=== PATIENT | female | born 1990 | race Two or more races ===

== ENCOUNTER 2019-05-13 19:42 | Emergency (ER) | payer OTHER ==
[2019-05-13] MEDS ORDERED: NORMAL SALINE 1000 ML 1,000 ML IV ONE (20:04)
[2019-05-13] MEDS ORDERED: METOCLOPRAMIDE HCL INJ/PF 10 MG/2 ML SDV IV ONE (20:04)
--- NOTE | 2019-05-13 20:06 | ER Document Report ---
ED Medical Screen (RME) - General Chief Complaint: Nausea/Vomiting Stated Complaint: VOMITING Time Seen by Provider: 05/13/19 19:58 Notes: Patient is a 29-year-old female G5, P3 who presents emergency department with a chief complaint of vomiting. Patient reports has been vomiting intermittently for the past 3 to 4 weeks but more constant over the past 2 days. Patient reports she is an estimated 9 weeks . Patient reports she has had blood work to confirm this but has not had a ultrasound to confirm intrauterine yet. Patient waiting for referral at [facility]. Patient reports she does have a history of hyperemesis with previous pregnancies. Patient denies fever. Patient does report mild abdominal cramping that was more present yesterday. Patient does not have a clear vaginal discharge without odor. Denies vaginal bleeding. TRAVEL OUTSIDE OF THE [place] IN LAST 30 DAYS: No - Related Data Allergies/Adverse Reactions: No Known Allergies Allergy (Unverified 05/13/19 19:54) Home Medications: denies Past Medical History - Social History Chew tobacco use (# tins/day): No Frequency of alcohol use: None Drug Abuse: None Physical Exam - Vital signs Vitals: Temp Pulse BP Pulse Ox 98.9 F 72 133/75 H 98 05/13/19 19:46 12 19:46 05/13/19 19:46 05/13/19 19:46 - Abdominal Inspection: Normal Distension: No distension Bowel sounds: Normal Tenderness: Nontender Organomegaly: No organomegaly Course - Re-evaluation Re-evalutation: 05/13/19 20:05 I have greeted and performed a rapid initial assessment of this patient. A comprehensive ED assessment and evaluation of the patient, analysis of test results and completion of the medical decision making process will be conducted by additional ED providers. - Vital Signs Vital signs: Temp Pulse Resp BP Pulse Ox 98.9 F 72 20 133/75 H 98 05/13/19 19:54 05/13/19 19:54 05/13/19 19:54 05/13/19 19:54 05/13/19 19:54
[2019-05-13 20:39] LABS: ABSOLUTE EOSINOPHILS # (AUTO) 0.2 10^3/uL (0.0-0.6); ABSOLUTE MONOCYTES (AUTO) 0.5 10^3/uL (0.1-1.4); ABSOLUTE NEUT (AUTO) 6.6 10^3/uL (1.7-8.2); BASOPHILS % (AUTO) 0.4 % (0-2); EOSINOPHILS % (AUTO) 1.8 % (0-6); HEMATOCRIT 36.4 % (36.0-47.0); HEMOGLOBIN 12.5 g/dL (12.0-15.5); LYMPHOCYTES % (AUTO) 21.5 % (13-45); MEAN CORPUSCULAR HEMOGLOBIN 27.6 pg (27.0-33.4); MEAN CORPUSCULAR HGB CONC 34.3 g/dL (32.0-36.0); MEAN CORPUSCULAR VOLUME 80 fl (80-97); MONOCYTES % (AUTO) 5.4 % (3-13); PLATELET COUNT 269 10^3/uL (150-450); RED BLOOD COUNT 4.53 10^6/uL (3.72-5.28); RED CELL DISTRIBUTION WIDTH 13.5 % (11.5-14.0); SEGMENTED NEUTROPHILS % (AUTO) 70.9 % (42-78); TOTAL CELLS COUNTED % (AUTO) 100 %; WHITE BLOOD COUNT 9.3 10^3/uL (4.0-10.5)
[2019-05-13 20:57] LABS: ALBUMIN 4.7 g/dL (3.5-5.0); ALKALINE PHOSPHATASE 74 U/L (38-126); ANION GAP 13 (5-19); ASPARTATE AMINO TRANSFERASE 27 U/L (14-36); BILIRUBIN,DIRECT 0.1 mg/dL (0.0-0.4); BILIRUBIN,TOTAL 0.6 mg/dL (0.2-1.3); BLOOD UREA NITROGEN 6 mg/dL (7-20); CALCIUM 9.9 mg/dL (8.4-10.2); CARBON DIOXIDE 24 mmol/L (22-30); CHLORIDE 102 mmol/L (98-107); GLUCOSE 94 mg/dL (75-110); POTASSIUM 3.4 mmol/L (3.6-5.0); TOTAL PROTEIN 7.9 g/dL (6.3-8.2)
--- NOTE | 2019-05-13 21:37 | ER Document Report ---
ED General - General Chief Complaint: Nausea/Vomiting Stated Complaint: VOMITING Time Seen by Provider: 05/13/19 19:58 Primary Care Provider: EVER CHONG [Primary Care Provider] - Follow up as needed TRAVEL OUTSIDE OF THE [place] IN LAST 30 DAYS: No - HPI Notes: Patient is a 29-year-old female G5, P3 with one previous miscarriage approximately 9 weeks by gestation who presents complaining of nausea vomiting that is increased over the past few days. Patient states that she has been having nausea vomiting for the past couple weeks otherwise. She has been able to eat and drink, but does have decreased p.o. intake. She is urinating normally and having normal bowel movements. No other vaginal bleeding, odor, or discharge. Denies drug allergies. Surgical history significant for to her abdomen. Denies any headache, fever, neck pain, URI, sore throat, chest pain, palpitations, syncope, cough, shortness of breath, wheeze, dyspnea, abdominal pain, diarrhea, urinary retention, dysuria, hematuria, back pain, or rash. - Related Data Allergies/Adverse Reactions: No Known Allergies Allergy (Unverified 05/13/19 19:54) Home Medications: denies Past Medical History - Social History Smoking Status: Never Smoker Chew tobacco use (# tins/day): No Frequency of alcohol use: None Drug Abuse: None Family History: Reviewed & Not Pertinent Patient has suicidal ideation: No Patient has homicidal ideation: No Review of Systems - Review of Systems -: Yes All other systems reviewed and negative Physical Exam - Vital signs Vitals: Temp Pulse BP Pulse Ox 98.9 F 72 133/75 H 98 05/13/19 19:46 05/13/19 19:46 05/13/19 19:46 05/13/19 19:46 - Notes Notes: PHYSICAL EXAMINATION: GENERAL: Well-appearing, well-nourished and in no acute distress. HEAD: Atraumatic, normocephalic. EYES: Pupils equal round and reactive to light, extraocular movements intact, sclera anicteric, conjunctiva are normal. ENT: Nares patent and without discharge. oropharynx clear without exudates. No tonsilar hypertrophy or erythema. Moist mucous membranes. NECK: Normal range of motion, supple without lymphadenopathy LUNGS: Breath sounds clear to auscultation bilaterally and equal. No wheezes rales or rhonchi. HEART: Regular rate and rhythm without murmurs, rubs, gallops. ABDOMEN: Soft, nontender, nondistended abdomen. No guarding, no rebound. Normal bowel sounds present. No CVA tenderness bilaterally. Musculoskeletal: FROM to passive/active. Strength 5+/5. Extremities: No cyanosis, clubbing, or edema b/l. Peripheral pulses 2+. Capillary refill less than 3 seconds. NEUROLOGICAL: Normal speech, normal gait. PSYCH: Normal mood, normal affect. SKIN: Warm, Dry, normal turgor, no rashes or lesions noted. Course - Re-evaluation Re-evalutation: 05/13/19 Patient is an afebrile, well-hydrated, 29-year-old female who presents to the ED with n/v in early . Vitals are acceptable without any significant tachycardia, tachypnea, or hypoxia. PE is otherwise unremarkable. CBC, CMP, lipase unremarkable for acute pathology. HCG appropriate. TVUS shows living IUP 9wks. UA acceptable. Patient is nontoxic-appearing is tolerating p.o. without any difficulties. No other labs or imaging warranted at this time based on H&P. Low suspicion/risk for acute appendicitis, bowel obstruction, acute cholecystitis, acute cholangitis, perforated diverticulitis, incarcerated hernia, pancreatitis, perforated ulcer, peritonitis, sepsis, pelvic inflammatory disease, ectopic , tubo-ovarian abscess, ovarian torsion, or other systemic emergent condition at this time. Patient is aware that her condition can change from initial presentation and she needs to monitor symptoms closely and seek medical attention if any acute changes. Consider repeat US in 6 weeks per recommendations. Conservative measures otherwise for symptoms. Recheck with your PCM/OBGYN in 3-5 days. Return to the ED with any worsening/concerning symptoms otherwise as reviewed in discharge. Patient is in agreement. - Vital Signs Vital signs: Temp Pulse Resp BP Pulse Ox 98.9 F 72 20 133/75 H 98 05/13/19 19:54 05/13/19 19:54 05/13/19 19:54 05/13/19 19:54 05/13/19 19:54 - Laboratory Result Diagrams: 05/13/19 20:19 05/13/19 20:19 Laboratory results interpreted by me: 05/13/19 05/13/19 20:19 21:46 Potassium 3.4 L BUN 6 L Beta HCG, Quant [id number] H Urine Protein 100 H Urine Ketones 20 H Urine Bilirubin SMALL H Urine Urobilinogen 4.0 H Discharge - Discharge Clinical Impression: Nausea and vomiting during Condition: Stable Disposition: HOME, SELF-CARE Additional Instructions: Maintain adequate fluid and food intake Grady diet (B.R.A.T.) Bananas, rice, apples, toast, etc Reglan as needed tylenol if needed Monitor for any worsening symptoms Make sure you are staying hydrated enough to urinate and have normal BM's Recheck with your PCM in 3-5 days Schedule follow-up with EXTRACORPOREAL TECHNICIAN and consider reimaging of ultrasound for the cyst that we discussed in another 6 weeks Return to the ED with any worsening symptoms and/or development of fever, headache, chest pain, palpitations, syncope, shortness of breath, trouble breathing, abdominal pain, n/v/d, blood in stool/urine, weakness, or other worsening symptoms that are concerning to you. Prescriptions: Metoclopramide HCl [Reglan] 10 mg PO BID PRN #10 tablet PRN Reason: Forms: Elevated Blood Pressure [facility]errals: [facility] [Primary [facility]] - Follow up as needed [facility] [Provider Group] - Follow up as needed
--- NOTE | 2019-05-13 21:39 | RADIOLOGY REPORT (SQ) ---
EXAM DESCRIPTION: US TRANSVAGINAL COMPLETED DATE/TME: 05/13/2019 20:03 CLINICAL HISTORY: 29 years, Female, abdominal cramping, vomiting COMPARISON: None. TECHNIQUE: Axial 2-D grayscale images of the pelvis were acquired. Doppler was utilized. LIMITATIONS: None. FINDINGS: Uterus measures 9.2 x 7.4 x 7.9 cm in size. A single intrauterine is evident with measurements as follows: Cervix is closed, measuring 2.0 cm in length. [place]-rump length is 2.34 cm for an estimated gestational age of 9 weeks and 0 days (estimated date of delivery 12/16/2019) Yolk sac is present, measuring 0.69 cm in diameter A small focus of hypoechogenicity is noted about the periphery of the gestational sac measuring 2.6 x 1.0 x 1.6 cm in size. Right ovary measures 3.2 x 1.2 x 1.3 cm in size. It demonstrates normal low resistance arterial waveforms/venous flow. In addition, it contains a 1.2 x 0.8 x 1.0 cm hypoechoic lesion which is indeterminate given the presence of a suspected thin internal septation. Left ovary measures 3.5 x 1.9 x 2.8 cm in size. It also demonstrates normal low resistance arterial waveforms/venous flow. In addition, it contains a hypoechoic lesion measuring 1.8 x 1.4 x 1.4 cm in size, demonstrating mild peripheral Doppler flow, most likely corresponding to a corpus luteal cyst. No significant free fluid is identified within the pelvis. IMPRESSION: Single live intrauterine , as above described. Small subchorionic hematoma, specifically measuring 2.6 x 1.0 x 1.6 cm in size. Corpus luteal cyst within the left ovary. Additional hypoechoic lesion within the right ovary is indeterminate. Suggest follow-up pelvic ultrasound in 6-12 weeks to document resolution of this finding. copyright 2010 [employer]- All Rights Reserved
[2019-05-13 22:11] LABS: APPEARANCE,URINE SLIGHTLY-CLOUDY; BILIRUBIN,URINE SMALL (NEGATIVE); GLUCOSE, URINE NEGATIVE (NEGATIVE); KETONES,URINE 20 mg/dL (NEGATIVE); LEUKOCYTE ESTERASE,URINE NEGATIVE (NEGATIVE); NITRITE,URINE NEGATIVE (NEGATIVE); PROTEIN,URINE 100 mg/dL (NEGATIVE); URINE SPECIFIC GRAVITY 1.032
[2019-05-13 22:12] LABS: COLOR,URINE DARK YELLOW
[2019-05-13 23:40] VITALS: BP 132/72
== END 2019-05-13 23:39 | disposition home or self-care (01) ==
LOC: ER 19:42
DX: O21.9 Vomiting of pregnancy, unspecified (principal); Z3A.09 9 weeks gestation of pregnancy
CPT/HCPCS: 99284; 96361; 96374; 36415; 84702; 83690; 85025; 80053; 81001; 76817; 93976; J2765; J7030

== ENCOUNTER 2019-05-26 19:00 | Emergency (ER) | payer OTHER ==
[2019-05-26] MEDS ORDERED: ONDANSETRON 4 MG TAB.RAPDIS PO ONE (19:30)
[2019-05-26] MEDS ORDERED: NORMAL SALINE 1000 ML 1,000 ML IV ONE (19:31)
--- NOTE | 2019-05-26 19:34 | ER Document Report ---
ED Medical Screen (RME) - General Chief Complaint: Vomiting Stated Complaint: VOMITING Time Seen by Provider: 05/26/19 19:29 Primary Care Provider: [facility] [Primary [facility]] - Follow up as needed Mode of Arrival: Ambulatory Information source: Patient Notes: 29 -year-old female presented to ED for hyperemesis gravidarum. She states she was using Zofran pills and was able to keep her food down but today she started up over 20 times even with the Zofran. Patient is 4 para 3 she is 11 weeks . She states she did have hyperemesis gravidarum with her last but hoping she was not could have at this time. She states she was at [employer] trying to get [employer] finished when she almost passed out so the dropped her off at the ED and took the children at home. Will order blood urine IV fluids and Zofran ODT in the emergency room. I have greeted and performed a rapid initial assessment of this patient. A co mprehensive ED assessment and evaluation of the patient, analysis of test results and completion of medical decision making process will be conducted by an additional ED providers. TRAVEL OUTSIDE OF THE [place] IN LAST 30 DAYS: No - Related Data Allergies/Adverse Reactions: No Known Allergies Allergy (Unverified 05/13/19 19:54) Past Medical History Past Surgical History: Reports: Hx Section, Hx Orthopedic Surgery - spinal fusion Physical Exam - Vital signs Vitals: Temp Pulse Resp BP Pulse Ox 97.7 F 66 18 131/84 H 100 05/26/19 19:25 05/26/19 19:25 05/26/19 19:25 05/26/19 19:25 05/26/19 19:25 Course - Vital Signs Vital signs: Temp Pulse Resp BP Pulse Ox 97.7 F 66 18 131/84 H 100 05/26/19 19:25 05/26/19 19:25 05/26/19 19:25 05/26/19 19:25 05/26/19 19:25 Doctor's Discharge - Discharge Referrals: [facility] [Primary [facility]] - Follow up as needed
[2019-05-26 20:16] LABS: ABSOLUTE BASOPHILS # (AUTO) 0.1 10^3/uL (0.0-0.2); ABSOLUTE EOSINOPHILS # (AUTO) 0.2 10^3/uL (0.0-0.6); ABSOLUTE LYMPHOCYTES (AUTO) 2.4 10^3/uL (0.5-4.7); ABSOLUTE MONOCYTES (AUTO) 0.6 10^3/uL (0.1-1.4); ABSOLUTE NEUT (AUTO) 5.3 10^3/uL (1.7-8.2); BASOPHILS % (AUTO) 0.7 % (0-2); EOSINOPHILS % (AUTO) 2.3 % (0-6); HEMATOCRIT 34.8 % (36.0-47.0); LYMPHOCYTES % (AUTO) 28.4 % (13-45); MEAN CORPUSCULAR HGB CONC 34.5 g/dL (32.0-36.0); MEAN CORPUSCULAR VOLUME 81 fl (80-97); MONOCYTES % (AUTO) 6.5 % (3-13); PLATELET COUNT 264 10^3/uL (150-450); RED BLOOD COUNT 4.28 10^6/uL (3.72-5.28); RED CELL DISTRIBUTION WIDTH 13.2 % (11.5-14.0); SEGMENTED NEUTROPHILS % (AUTO) 62.1 % (42-78); TOTAL CELLS COUNTED % (AUTO) 100 %; WHITE BLOOD COUNT 8.5 10^3/uL (4.0-10.5)
[2019-05-26 20:31] LABS: ALBUMIN 4.4 g/dL (3.5-5.0); ALKALINE PHOSPHATASE 63 U/L (38-126); ANION GAP 13 (5-19); ASPARTATE AMINO TRANSFERASE 19 U/L (14-36); BILIRUBIN,DIRECT 0.1 mg/dL (0.0-0.4); BILIRUBIN,TOTAL 0.3 mg/dL (0.2-1.3); BLOOD UREA NITROGEN 7 mg/dL (7-20); CALCIUM 9.6 mg/dL (8.4-10.2); CARBON DIOXIDE 24 mmol/L (22-30); CHLORIDE 102 mmol/L (98-107); GLUCOSE 84 mg/dL (75-110); POTASSIUM 3.9 mmol/L (3.6-5.0); TOTAL PROTEIN 7.7 g/dL (6.3-8.2)
[2019-05-26 21:52] LABS: APPEARANCE,URINE CLOUDY; BILIRUBIN,URINE NEGATIVE (NEGATIVE); COLOR,URINE AMBER; GLUCOSE, URINE NEGATIVE (NEGATIVE); KETONES,URINE TRACE mg/dL (NEGATIVE); PROTEIN,URINE 100 mg/dL (NEGATIVE); URINE SPECIFIC GRAVITY 1.028; UROBILINOGEN,URINE NEGATIVE mg/dL (<2.0)
[2019-05-26] MEDS ORDERED: DIPHENHYDRAMINE HCL 50 MG/ML VIAL IV ONE (23:59)
--- NOTE | 2019-05-27 00:05 | ER Document Report ---
ED GI/ - General Chief Complaint: Vomiting Stated Complaint: VOMITING Time Seen by Provider: 05/26/19 19:29 Primary Care Provider: EVER CHONG [Primary Care Provider] - Follow up as needed Mode of Arrival: Ambulatory Notes: Patient is a 29-year-old female, G5, P3 at 11 weeks gestation by first trimester ultrasound, that comes to the emergency department for chief complaint of hyperemesis gravidarum. She states that she has had problems with this in the past especially in the first trimester but also in the second trimester. She states she was prescribed Reglan, this did nothing, she states she was given Zofran but she has to swallow a pill and before she has a chance for it to work she vomits it up. She does not have the dissolvable tablets. She was given dissolvable tablets in triage and she states she does feel better, however also she states that while shopping today she became lightheaded and she has not had much to eat or drink today at all. She denies fever, specific area abdominal pain, flank pain, dysuria, vaginal bleeding or discharge. She denies any other medications daily or any other medical history other than a previous miscarriage. TRAVEL OUTSIDE OF THE [place] IN LAST 30 DAYS: No - Related Data Allergies/Adverse Reactions: No Known Allergies Allergy (Unverified 05/13/19 19:54) Past Medical History - General Information source: Patient - Social History Smoking Status: Never Smoker Frequency of alcohol use: None Drug Abuse: None Lives with: Family Family History: Reviewed & Not Pertinent Patient has suicidal ideation: No Patient has homicidal ideation: No - Medical History Medical History: Negative Past Surgical History: Reports: Hx Section, Hx Orthopedic Surgery - spinal fusion - Immunizations Immunizations up to date: Yes Hx Diphtheria, Pertussis, Tetanus Vaccination: Yes Review of Systems - Review of Systems Constitutional: No symptoms reported EENT: No symptoms reported Cardiovascular: No symptoms reported Respiratory: No symptoms reported Gastrointestinal: See HPI Genitourinary: No symptoms reported Female Genitourinary: See HPI Musculoskeletal: No symptoms reported Skin: No symptoms reported Hematologic/Lymphatic: No symptoms reported Neurological/Psychological: No symptoms reported Physical Exam - Vital signs Vitals: Temp Resp Pulse Ox 97.7 F 18 100 05/26/19 19:00 05/26/19 19:00 05/26/19 19:00 - Notes Notes: GENERAL: Alert, interacts well. No acute distress. HEAD: Normocephalic, atraumatic. EYES: Pupils equal, round, and reactive to light. Extraocular movements intact. ENT: Oral mucosa moist, tongue midline. Oropharynx unremarkable. Airway patent. NECK: Full range of motion. Supple. Trachea midline. LUNGS: Clear to auscultation bilaterally, no wheezes, rales, or rhonchi. No respiratory distress. HEART: Regular rate and rhythm. No murmur ABDOMEN: Soft, non-tender. Non-distended. EXTREMITIES: Moves all 4 extremities spontaneously. No edema, normal radial and dorsalis pedis pulses bilaterally. No cyanosis. BACK: no cervical, thoracic, lumbar midline tenderness. No saddle anesthesia, normal distal neurovascular exam. Moves all extremities in full range of motion. NEUROLOGICAL: Alert and oriented x3. Normal speech. Cranial nerves II through XII grossly intact. PSYCH: Normal affect, normal mood. SKIN: Warm, dry, normal turgor. No rashes or lesions noted. Course - Re-evaluation Re-evalutation: Patient is well-appearing. She was given IV fluids, nausea medication, after all symptoms resolved. She did not vomit while she was here, she tolerated p.o. without any difficulty. CBC, chemistry, urinalysis unremarkable. Vital signs unremarkable. Patient states she feels much better and is ready to go home. She is asking for Zofran again because Reglan does not help, this was given by her SALES COMPENSATION ANALYST, given ODT this time. Discussed follow-up and return precautions. Patient states understanding and agreement. - Vital Signs Vital signs: Temp Pulse Resp BP Pulse Ox 97.8 F 65 16 114/85 100 05/27/19 02:10 05/27/19 02:10 05/27/19 02:10 05/27/19 02:10 05/27/19 02:10 - Laboratory Result Diagrams: 05/26/19 19:53 05/26/19 19:53 Laboratory results interpreted by me: 05/26/19 05/26/19 05/26/19 19:53 19:53 21:40 Hct 34.8 L Creatinine 0.51 L Urine Protein 100 H Urine Ketones TRACE H Leukocyte Esterase Rfl TRACE H Discharge - Discharge Clinical Impression: Vomiting affecting , Dehydration Condition: Stable Disposition: HOME, SELF-CARE Additional Instructions: Your work-up is reassuring, you have been treated for dehydration from vomiting during tonight. I recommend taking the dissolving tablets, 8 mg of Zofran if necessary, for nausea and vomiting as needed. You can also combine this with [id number] diphenhydramine which is safe in and helps with nausea. Start bland and slowly progress. Follow-up with SALES COMPENSATION ANALYST for additional management. Return if you worsen including uncontrolled vomiting, fever, severe abdominal pain, vaginal bleeding, or any other concerning symptoms. Prescriptions: Ondansetron [Zofran Odt 4 mg Tablet] 1 - 2 tab PO Q4H PRN #30 tab.rapdis PRN Reason: For Nausea/Vomiting Forms: Return to Work Referrals: [facility] [[facility]] - Follow up as needed
[2019-05-27] MEDS ORDERED: ONDANSETRON ODT 4 MG TAB (6 TAB/ER DISP) PO PRN (01:32)
[2019-05-27 02:11] VITALS: BP 114/85
== END 2019-05-27 02:10 | disposition home or self-care (01) ==
LOC: ER 19:00
DX: O21.9 Vomiting of pregnancy, unspecified (principal); O99.281 Endocrine, nutritional and metabolic diseases complicating pregnancy, first trimester; E86.0 Dehydration; O26.891 Other specified pregnancy related conditions, first trimester; R42 Dizziness and giddiness; Z3A.11 11 weeks gestation of pregnancy
CPT/HCPCS: 99284; 96361; 96374; 36415; 85025; 80053; 81001; J1200; S0119; J7030

== ENCOUNTER 2019-07-30 09:42 | Emergency (ER) | payer OTHER ==
[2019-07-30] MEDS ORDERED: NORMAL SALINE 1000 ML 1,000 ML IV ONE (09:57)
[2019-07-30] MEDS ORDERED: PROMETHAZINE HCL INJ 25 MG/1 ML VIAL IV ONE (09:57)
--- NOTE | 2019-07-30 09:59 | ER Document Report ---
ED Medical Screen (RME) - General Chief Complaint: Nausea/Vomiting Stated Complaint: VOMITING,NAUSEA Time Seen by Provider: 07/30/19 09:51 Primary Care Provider: [facility] [Primary Care Provider] - Follow up as needed Mode of Arrival: Ambulatory Information source: Patient Notes: Otherwise healthy 29-year-old female presenting to the emergency department chief complaint of nausea and vomiting. Patient reports she has 19 weeks , states that she has been diagnosed with hyperemesis. Patient reports unable to hold anything down since Wednesday which was 5 days ago. Patient denies any other symptoms at this time. I have greeted and performed a rapid initial assessment of this patient. A comprehensive ED assessment and evaluation of the patient, analysis of test results and completion of the medical decision making process will be conducted by additional ED providers. I have specifically instructed the patient or family members with the patient to immediately return to any nursing staff should anything change in the patient's condition or with their chief complaint. TRAVEL OUTSIDE OF THE [place] IN LAST 30 DAYS: No - Related Data Allergies/Adverse Reactions: No Known Allergies Allergy (Unverified 05/13/19 19:54) Past Medical History Past Surgical History: Reports: Hx Section, Hx Orthopedic Surgery - spinal fusion - Immunizations Immunizations up to date: Yes Hx Diphtheria, Pertussis, Tetanus Vaccination: Yes Physical Exam - Vital signs Vitals: Temp Pulse Resp BP Pulse Ox 98.3 F 86 16 120/75 99 07/30/19 09:56 07/30/19 09:56 07/30/19 09:56 07/30/19 09:56 07/30/19 09:56 Course - Vital Signs Vital signs: Temp Pulse Resp BP Pulse Ox 98.3 F 86 16 120/75 99 07/30/19 09:56 07/30/19 09:56 07/30/19 09:56 07/30/19 09:56 07/30/19 09:56 Doctor's Discharge - Discharge Referrals: [facility] [Primary Care Provider] - Follow up as needed
[2019-07-30 10:25] LABS: ABSOLUTE EOSINOPHILS # (AUTO) 0.3 10^3/uL (0.0-0.6); ABSOLUTE LYMPHOCYTES (AUTO) 1.7 10^3/uL (0.5-4.7); ABSOLUTE MONOCYTES (AUTO) 0.5 10^3/uL (0.1-1.4); ABSOLUTE NEUT (AUTO) 5.1 10^3/uL (1.7-8.2); BASOPHILS % (AUTO) 0.3 % (0-2); HEMATOCRIT 33.3 % (36.0-47.0); HEMOGLOBIN 12.1 g/dL (12.0-15.5); LYMPHOCYTES % (AUTO) 22.2 % (13-45); MEAN CORPUSCULAR HEMOGLOBIN 28.8 pg (27.0-33.4); MEAN CORPUSCULAR HGB CONC 36.4 g/dL (32.0-36.0); MEAN CORPUSCULAR VOLUME 79 fl (80-97); MONOCYTES % (AUTO) 6.8 % (3-13); PLATELET COUNT 274 10^3/uL (150-450); RED BLOOD COUNT 4.21 10^6/uL (3.72-5.28); SEGMENTED NEUTROPHILS % (AUTO) 66.7 % (42-78); TOTAL CELLS COUNTED % (AUTO) 100 %; WHITE BLOOD COUNT 7.6 10^3/uL (4.0-10.5)
[2019-07-30 10:32] LABS: APPEARANCE,URINE SLIGHTLY-CLOUDY; BILIRUBIN,URINE SMALL (NEGATIVE); COLOR,URINE AMBER; GLUCOSE, URINE NEGATIVE (NEGATIVE); KETONES,URINE NEGATIVE (NEGATIVE); LEUKOCYTE ESTERASE,URINE TRACE (NEGATIVE); NITRITE,URINE NEGATIVE (NEGATIVE); PROTEIN,URINE 100 mg/dL (NEGATIVE); URINE SPECIFIC GRAVITY 1.021
[2019-07-30 10:39] LABS: ALBUMIN 4.2 g/dL (3.5-5.0); ALKALINE PHOSPHATASE 105 U/L (38-126); ANION GAP 11 (5-19); ASPARTATE AMINO TRANSFERASE 25 U/L (14-36); BILIRUBIN,DIRECT 0.4 mg/dL (0.0-0.4); BILIRUBIN,TOTAL 0.7 mg/dL (0.2-1.3); BLOOD UREA NITROGEN 4 mg/dL (7-20); CALCIUM 9.5 mg/dL (8.4-10.2); CARBON DIOXIDE 28 mmol/L (22-30); CHLORIDE 98 mmol/L (98-107); GLUCOSE 82 mg/dL (75-110); TOTAL PROTEIN 7.6 g/dL (6.3-8.2)
[2019-07-30 10:45] LABS: POTASSIUM 2.8 mmol/L (3.6-5.0)
[2019-07-30] MEDS: POTASSI CL 20 MEQ/50 ML RIDER 20 MEQ/50 ML RTUPB IV SCH ×2 (11:16→12:44)
--- NOTE | 2019-07-30 11:25 | ER Document Report ---
ED GI/ - General Chief Complaint: Nausea/Vomiting Stated Complaint: VOMITING,NAUSEA Time Seen by Provider: 07/30/19 09:51 Primary Care Provider: [facility] [Primary Care Provider] - Follow up as needed Mode of Arrival: Ambulatory Notes: 29-year-old woman 2 para 1 presents with nausea vomiting unable to keep down food or fluids for the past 48 hours. She has a 19-week intrauterine and had similar problems with her previous about 3 years ago. She denies fever, dysuria, or syncope. TRAVEL OUTSIDE OF THE [place] IN LAST 30 DAYS: No - HPI heart tones (bpm): 145 - Related Data Allergies/Adverse Reactions: No Known Allergies Allergy (Unverified 05/13/19 19:54) Past Medical History - General Information source: Patient - Social History Smoking Status: Never Smoker Family History: Reviewed & Not Pertinent Patient has suicidal ideation: No Patient has homicidal ideation: No Past Surgical History: Reports: Hx Section, Hx Orthopedic Surgery - spinal fusion - Immunizations Immunizations up to date: Yes Hx Diphtheria, Pertussis, Tetanus Vaccination: Yes Review of Systems - Review of Systems Notes: Constitutional: Negative for fever. HENT: Negative for sore throat. Eyes: Negative for visual changes. Cardiovascular: Negative for chest pain. Respiratory: Negative for shortness of breath. Gastrointestinal: + Nausea and vomiting Genitourinary: Negative for dysuria. Musculoskeletal: Negative for back pain. Skin: Negative for rash. Neurological: + Weakness negative for headaches, weakness or numbness. 10 point ROS negative except as marked above and in HPI. Physical Exam - Vital signs Vitals: Temp Pulse Resp BP Pulse Ox 98.3 F 86 16 120/75 99 07/30/19 09:56 07/30/19 09:56 07/30/19 09:56 07/30/19 09:56 07/30/19 09:56 - Notes Notes: PHYSICAL EXAMINATION: Physical Exam: General: Well-nourished well-developed 29-year-old woman in mild distress secondary to nausea HEENT: NC/AT, pupils equal round and reactive to light, MM moist,nares clear, oropharynx clear, airway patent Neck: supple, no adenopathy, no masses. Good range of motion Lungs: clear, no wheezing, no rales no rhonchi CVS: Regular rate and rhythm no murmur gallop or rub Abdomen: Soft, active, nontender, no masses, no hepatosplenomegaly Ext: No edema, clubbing or cyanosis. Neuro: Alert and responsive, moving all 4 extremities on command, cranial nerves intact, no focal findings Skin: Intact no open lesions, no rash PSYCH: Normal mood, normal affect. Course - Re-evaluation Re-evalutation: 07/30/19 15:00 She was given IV fluids, IV Phenergan and potassium and now states that she is feeling much better. I discussed with her the need to follow-up with the REFRACTORY SPECIALIST since she is presently using Zofran at home along with B vitamin per prescription. The patient is in agreement with this plan and stated she is ready to be discharged. - Vital Signs Vital signs: Temp Pulse Resp BP Pulse Ox 98.3 F 86 16 120/75 99 07/30/19 09:56 07/30/19 09:56 07/30/19 09:56 07/30/19 09:56 07/30/19 09:56 - Laboratory Result Diagrams: 07/30/19 10:02 07/30/19 10:02 Laboratory results interpreted by me: 07/30/19 07/30/19 07/30/19 10:02 10:02 10:02 Hct 33.3 L MCV 79 L MCHC 36.4 H Sodium 136.7 L Potassium 2.8 L* BUN 4 L Creatinine 0.49 L Urine Protein 100 H Urine Bilirubin SMALL H Urine Urobilinogen 4.0 H Ur Leukocyte Esterase TRACE H Discharge - Discharge Clinical Impression: Vomiting , Hypokalemia, Dehydration Condition: Good Disposition: HOME, SELF-CARE Instructions: Hyperemesis Gravidarum ([facility]) Additional Instructions: You were treated for a related vomiting in the emergency department today. Please continue to push fluids and please follow-up with your REFRACTORY SPECIALIST regarding your symptoms. If your symptoms worsen or if you have other concerns you may return to the emergency department. Referrals: [facility] [[facility]] - Follow up as needed
[2019-07-30] MEDS ORDERED: RINGERS SOLUTION,LACTATED 1,000 ML IV ONE (11:26)
[2019-07-30 15:15] VITALS: BP 105/62
== END 2019-07-30 15:27 | disposition home or self-care (01) ==
LOC: ER 09:42
DX: O21.9 Vomiting of pregnancy, unspecified (principal); O26.892 Other specified pregnancy related conditions, second trimester; E87.6 Hypokalemia; E86.0 Dehydration; Z53.1 Procedure and treatment not carried out because of patient's decision for reasons of belief and group pressure; Z3A.19 19 weeks gestation of pregnancy
CPT/HCPCS: 99284; 96361; 96375; 96365; 96366; 36415; 85025; 80053; 81001; J2550; J3480; J7030; J7120

== ENCOUNTER 2019-08-10 11:50 | Emergency (ER) | payer OTHER ==
[2019-08-10] MEDS ORDERED: NORMAL SALINE 1000 ML 1,000 ML IV ONE ×3 (12:05→14:53)
--- NOTE | 2019-08-10 12:05 | ER Document Report ---
ED Medical Screen (RME) - General Chief Complaint: Vomiting Stated Complaint: VOMITING Time Seen by Provider: 08/10/19 12:02 Primary Care Provider: EVER CHONG [Primary Care Provider] - Follow up as needed Mode of Arrival: Ambulatory Information source: Patient Notes: 29-year-old female presented to ED for continued nausea and vomiting. She states she is 21 weeks . She states her heart feels like it is racing at times she feels weak and muscle cramping. She is alert oriented respirations regular nonlabored speaking in full sentences. She states she does take Zofran and another medication for nausea and vomiting. I have greeted and performed a rapid initial assessment of this patient. A comprehensive ED assessment and evaluation of the patient, analysis of test results and completion of medical decision making process will be conducted by an additional ED providers. TRAVEL OUTSIDE OF THE [place] IN LAST 30 DAYS: No - Related Data Allergies/Adverse Reactions: No Known Allergies Allergy (Verified 08/10/19 12:02) Past Medical History Past Surgical History: Reports: Hx Section, Hx Orthopedic Surgery - spinal fusion - Immunizations Immunizations up to date: Yes Hx Diphtheria, Pertussis, Tetanus Vaccination: Yes Physical Exam - Vital signs Vitals: Temp Pulse Resp BP Pulse Ox 98.1 F 77 18 139/84 H 98 08/10/19 11:55 08/10/19 11:55 08/10/19 11:55 08/10/19 11:55 08/10/19 11:55 Course - Vital Signs Vital signs: Temp Pulse Resp BP Pulse Ox 98.1 F 77 18 139/84 H 98 08/10/19 11:55 08/10/19 11:55 08/10/19 11:55 08/10/19 11:55 08/10/19 11:55 Doctor's Discharge - Discharge Referrals: [facility] [Primary Care Provider] - Follow up as needed
[2019-08-10 12:28] LABS: APPEARANCE,URINE CLOUDY; BILIRUBIN,URINE SMALL (NEGATIVE); COLOR,URINE AMBER; GLUCOSE, URINE NEGATIVE (NEGATIVE); KETONES,URINE 20 mg/dL (NEGATIVE); PROTEIN,URINE 100 mg/dL (NEGATIVE); URINE SPECIFIC GRAVITY 1.025
[2019-08-10 12:31] LABS: ABSOLUTE EOSINOPHILS # (AUTO) 0.3 10^3/uL (0.0-0.6); ABSOLUTE LYMPHOCYTES (AUTO) 1.3 10^3/uL (0.5-4.7); ABSOLUTE MONOCYTES (AUTO) 0.5 10^3/uL (0.1-1.4); ABSOLUTE NEUT (AUTO) 5.8 10^3/uL (1.7-8.2); BASOPHILS % (AUTO) 0.4 % (0-2); EOSINOPHILS % (AUTO) 3.9 % (0-6); HEMATOCRIT 34.6 % (36.0-47.0); HEMOGLOBIN 12.7 g/dL (12.0-15.5); LYMPHOCYTES % (AUTO) 16.6 % (13-45); MEAN CORPUSCULAR HEMOGLOBIN 28.7 pg (27.0-33.4); MEAN CORPUSCULAR HGB CONC 36.6 g/dL (32.0-36.0); MEAN CORPUSCULAR VOLUME 79 fl (80-97); PLATELET COUNT 270 10^3/uL (150-450); RED BLOOD COUNT 4.41 10^6/uL (3.72-5.28); RED CELL DISTRIBUTION WIDTH 12.9 % (11.5-14.0); SEGMENTED NEUTROPHILS % (AUTO) 73.1 % (42-78); TOTAL CELLS COUNTED % (AUTO) 100 %
[2019-08-10 12:49] LABS: ALBUMIN 4.3 g/dL (3.5-5.0); ALKALINE PHOSPHATASE 124 U/L (38-126); ANION GAP 11 (5-19); ASPARTATE AMINO TRANSFERASE 45 U/L (14-36); BILIRUBIN,DIRECT 0.1 mg/dL (0.0-0.4); BILIRUBIN,TOTAL 0.7 mg/dL (0.2-1.3); BLOOD UREA NITROGEN 8 mg/dL (7-20); CALCIUM 9.5 mg/dL (8.4-10.2); CARBON DIOXIDE 33 mmol/L (22-30); CHLORIDE 90 mmol/L (98-107); GLUCOSE 82 mg/dL (75-110); TOTAL PROTEIN 7.6 g/dL (6.3-8.2)
[2019-08-10 12:55] LABS: POTASSIUM 2.5 mmol/L (3.6-5.0)
[2019-08-10] MEDS ORDERED: POTASSIUM CHLORIDE 10 MEQ TABLET.ER PO ONE ×2 (13:28→14:54)
[2019-08-10] MEDS ORDERED: POTASSI CL 20 MEQ/50 ML RIDER 20 MEQ/50 ML RTUPB IV ONE (13:28)
[2019-08-10] MEDS ORDERED: METOCLOPRAMIDE HCL INJ/PF 10 MG/2 ML SDV IV ONE (13:28)
--- NOTE | 2019-08-10 13:29 | ER Document Report ---
ED General - General Chief Complaint: Nausea/Vomiting Stated Complaint: VOMITING Time Seen by Provider: 08/10/19 12:02 Primary Care Provider: EVER CHONG [Primary Care Provider] - Follow up as needed Mode of Arrival: Ambulatory TRAVEL OUTSIDE OF THE [place] IN LAST 30 DAYS: No - HPI Notes: Patient is a 29-year-old female approximately 21 weeks presents complaining of nausea and vomiting throughout her and feeling dehydrated this week. Patient states that she has been having some cramping into her legs as well as her lower pelvic area beginning this week. Patient states that she was seen by an [facility] couple days ago. She has been on Zofran. She is still urinating and having normal bowel movements. Denies drug allergies. She has not noticed any vaginal bleeding, odor, discharge. Denies drug allergies. Denies any headache, fever, neck pain, URI, sore throat, chest pain, palpitations, syncope, cough, shortness of breath, wheeze, dyspnea, diarrhea, urinary retention, dysuria, hematuria, or rash. - Related Data Allergies/Adverse Reactions: No Known Allergies Allergy (Verified 08/10/19 12:02) Past Medical History - General Information source: Patient - Social History Smoking Status: Never Smoker Chew tobacco use (# tins/day): No Frequency of alcohol use: None Drug Abuse: None Family History: Reviewed & Not Pertinent Patient has suicidal ideation: No Patient has homicidal ideation: No Past Surgical History: Reports: Hx Section, Hx Orthopedic Surgery - spinal fusion - Immunizations Immunizations up to date: Yes Hx Diphtheria, Pertussis, Tetanus Vaccination: Yes Review of Systems - Review of Systems -: Yes All other systems reviewed and negative Physical Exam - Vital signs Vitals: Temp Pulse Resp BP Pulse Ox 98.1 F 77 18 139/84 H 98 08/10/19 11:55 08/10/19 11:55 08/10/19 11:55 08/10/19 11:55 08/10/19 11:55 - Notes Notes: PHYSICAL EXAMINATION: GENERAL: Well-appearing, well-nourished and in no acute distress. HEAD: Atraumatic, normocephalic. EYES: Pupils equal round and reactive to light, extraocular movements intact, sclera anicteric, conjunctiva are normal. ENT: Nares patent and without discharge. oropharynx clear without exudates. No tonsilar hypertrophy or erythema. Moist mucous membranes. NECK: Normal range of motion, supple without lymphadenopathy LUNGS: Breath sounds clear to auscultation bilaterally and equal. No wheezes rales or rhonchi. HEART: Regular rate and rhythm without murmurs, rubs, gallops. ABDOMEN: Soft, nondistended abdomen. No guarding, no rebound. Normal bowel sounds present. No CVA tenderness bilaterally. + very mild lower pelvic tenderness. Extremities: No cyanosis, clubbing, or edema b/l. Peripheral pulses 2+. Capillary refill less than 3 seconds. NEUROLOGICAL: Normal speech, normal gait. PSYCH: Normal mood, normal affect. SKIN: Warm, Dry, normal turgor, no rashes or lesions noted. Course - Re-evaluation Re-evalutation: 08/10/19 13:29 I was able to speak with GWENDOLYN Camara. He would like us to correct her potassium. He would like her to f/u in their office tomorrow at 8am and we do not need to send up to L&D at this time. 08/10/19 18:34 Patient is an afebrile, well-hydrated, 29-year-old female presents for nausea vomiting and early . Vitals are acceptable. PE is otherwise unremarkable. Patient is nontoxic-appearing and is tolerating p.o. without difficulty at this time. Patient's abdomen is soft and nontender. Patient's potassium has been corrected with 40 mg p.o. and 20 mg IV. Labs acceptable otherwise. No further work-up warranted. Low suspicion/risk for acute appendicitis, bowel obstruction, acute cholecystitis, acute cholangitis, perforated diverticulitis, incarcerated hernia, pancreatitis, perforated ulcer, peritonitis, sepsis, pelvic inflammatory disease, ectopic , tubo- ovarian abscess, ovarian torsion, or other systemic emergent condition at this time. Patient is aware that her condition can change from initial presentation and she needs to monitor symptoms closely and seek medical attention if any acute changes. Conservative measures otherwise for symptoms. Recheck with OBGYN tomorrow. Recheck with your PCM in 3-5 days. Return to the ED with any worsening/concerning symptoms otherwise as reviewed in discharge. Patient is in agreement. - Vital Signs Vital signs: Temp Pulse Resp BP Pulse Ox 98.2 F 77 16 104/64 98 08/10/19 17:17 08/10/19 17:17 08/10/19 17:17 08/10/19 17:17 08/10/19 11:55 - Laboratory Result Diagrams: 08/10/19 12:10 08/10/19 12:10 Laboratory results interpreted by me: 08/10/19 08/10/19 08/10/19 12:10 12:10 12:10 Hct 34.6 L MCV 79 L MCHC 36.6 H Sodium 134.2 L Potassium 2.5 L* Chloride 90 L Carbon Dioxide 33 H AST 45 H Urine Protein 100 H Urine Ketones 20 H Urine Bilirubin SMALL H Urine Urobilinogen 4.0 H Leukocyte Esterase Rfl MODERATE H Discharge - Discharge Clinical Impression: Nausea and vomiting during , Hypokalemia Condition: Stable Disposition: HOME, SELF-CARE Additional Instructions: Maintain adequate fluid and food intake Spur diet (B.R.A.T.) Bananas, rice, apples, toast, etc Zofran as needed tylenol if needed Monitor for any worsening symptoms Make sure you are staying hydrated enough to urinate and have normal BM's Recheck with your PCM in 2-3 days Recheck with the [facility] tomorrow morning at 8 AM in their office* Return to the ED with any worsening symptoms and/or development of fever, headache, chest pain, palpitations, syncope, shortness of breath, trouble breathing, abdominal pain, n/v/d, blood in stool/urine, weakness, or other worsening symptoms that are concerning to you. Prescriptions: RX: Potassium Chloride 10 meq PO DAILY #6 tablet.er Referrals: [facility] [Primary Care Provider] - Follow up as needed JOCE COELLO MD [ACTIVE STAFF] - Follow up tomorrow
--- NOTE | 2019-08-10 17:26 | EKG REPORT ---
SEVERITY:- ABNORMAL ECG - SINUS RHYTHM NONSPECIFIC T ABNORMALITIES, INFERIOR LEADS : Confirmed by: Adriel Murguia MD 10-Aug-2019 17:25:52
[2019-08-10 18:46] VITALS: BP 107/69
== END 2019-08-10 18:52 | disposition home or self-care (01) ==
LOC: ER 11:50
DX: O21.9 Vomiting of pregnancy, unspecified (principal); O26.899 Other specified pregnancy related conditions, unspecified trimester; R10.2 Pelvic and perineal pain; R25.2 Cramp and spasm; O99.280 Endocrine, nutritional and metabolic diseases complicating pregnancy, unspecified trimester; E87.6 Hypokalemia; Z3A.00 Weeks of gestation of pregnancy not specified
CPT/HCPCS: 93005; 99284; 96361; 96375; 96365; 96366; 36415; 83735; 85025; 80053; 81001; 93010; J2765; J3480; J7030

== ENCOUNTER 2019-08-19 12:47 | Inpatient (IN) | payer OTHER ==
[2019-08-19] MEDS ORDERED: RINGERS SOLUTION,LACTATED 1,000 ML IV PRN (12:54)
[2019-08-19 13:20] LABS: ABSOLUTE EOSINOPHILS # (AUTO) 0.3 10^3/uL (0.0-0.6); ABSOLUTE LYMPHOCYTES (AUTO) 1.4 10^3/uL (0.5-4.7); ABSOLUTE MONOCYTES (AUTO) 0.6 10^3/uL (0.1-1.4); ABSOLUTE NEUT (AUTO) 6.7 10^3/uL (1.7-8.2); BASOPHILS % (AUTO) 0.5 % (0-2); EOSINOPHILS % (AUTO) 3.5 % (0-6); HEMATOCRIT 35.3 % (36.0-47.0); HEMOGLOBIN 12.5 g/dL (12.0-15.5); LYMPHOCYTES % (AUTO) 15.6 % (13-45); MEAN CORPUSCULAR HEMOGLOBIN 28.3 pg (27.0-33.4); MEAN CORPUSCULAR HGB CONC 35.5 g/dL (32.0-36.0); MEAN CORPUSCULAR VOLUME 80 fl (80-97); MONOCYTES % (AUTO) 6.7 % (3-13); PLATELET COUNT 283 10^3/uL (150-450); RED BLOOD COUNT 4.43 10^6/uL (3.72-5.28); SEGMENTED NEUTROPHILS % (AUTO) 73.7 % (42-78); TOTAL CELLS COUNTED % (AUTO) 100 %; WHITE BLOOD COUNT 9.1 10^3/uL (4.0-10.5)
[2019-08-19 13:23] LABS: APPEARANCE,URINE CLOUDY; BILIRUBIN,URINE SMALL (NEGATIVE); COLOR,URINE AMBER; GLUCOSE, URINE NEGATIVE (NEGATIVE); KETONES,URINE TRACE mg/dL (NEGATIVE); LEUKOCYTE ESTERASE,URINE MODERATE (NEGATIVE); NITRITE,URINE NEGATIVE (NEGATIVE); PROTEIN,URINE 100 mg/dL (NEGATIVE); URINE SPECIFIC GRAVITY 1.028
[2019-08-19 13:33] LABS: ALBUMIN 4.3 g/dL (3.5-5.0); ALKALINE PHOSPHATASE 127 U/L (38-126); ANION GAP 12 (5-19); ASPARTATE AMINO TRANSFERASE 34 U/L (14-36); BILIRUBIN,DIRECT 0.4 mg/dL (0.0-0.4); BILIRUBIN,TOTAL 0.8 mg/dL (0.2-1.3); BLOOD UREA NITROGEN 7 mg/dL (7-20); CALCIUM 9.4 mg/dL (8.4-10.2); CARBON DIOXIDE 32 mmol/L (22-30); CHLORIDE 92 mmol/L (98-107); GLUCOSE 82 mg/dL (75-110)
[2019-08-19 13:38] LABS: POTASSIUM 2.5 mmol/L (3.6-5.0)
[2019-08-19 13:42] LABS: URINE AMPHETAMINES SCREEN NEGATIVE; URINE BARBITURATES SCREEN NEGATIVE; URINE BENZODIAZEPINES SCREEN NEGATIVE; URINE COCAINE SCREEN NEGATIVE; URINE MARIJUANA (THC) SCREEN NEGATIVE; URINE METHADONE SCREEN NEGATIVE; URINE PHENCYCLIDINE SCREEN NEGATIVE
[2019-08-19] MEDS ORDERED: DEXTROSE 50%-WATER 25 GM/50 ML DISP.SYRIN IV PRN ×2 (14:02)
[2019-08-19] MEDS ORDERED: DEXTROSE 40% GEL 15 GM TUBE PO PRN ×2 (14:02)
[2019-08-19] MEDS ORDERED: MAGNESIUM SULFATE PF/INJ 40 MEQ/10 ML SDV IV ONE (14:15)
[2019-08-19] MEDS ORDERED: MAGNESIUM OXIDE 400 MG TABLET PO ONE (14:15)
--- NOTE | 2019-08-19 14:51 | PDOC H&P ---
History of Present Illness Admission Date/PCP: [facility] History of Present Illness: TIMBO YOUNG is a 29 year old female at 22 wks EGA for nausea/vomiting, tingling and shaking in arms and legs. SHe has hx of hyperemesis this with 15 lb weight loss. Was seen in the ED on 08/10/19 and given PO potassium to take d/t hypokalemia ( K at 2.5 ) at that time. She has been on Phenergan supp PV and zofran ODT but still vomiting today. Now feeling like she has tingling in arms/legs. Feels weak an dizzy with ambulation. Good FM Past Medical History Medical History: Other - Asthma and PTSD Past Surgical History Past Surgical History: Reports: Section, Orthopedic Surgery - spinal fusion Social History Smoking Status: Never Smoker Family History Family History: Reviewed & Not Pertinent Parental Family History Reviewed: Yes Children Family History Reviewed: Yes Sibling(s) Family History Reviewed.: Yes Medication/Allergy Home Medications: Ondansetron [Zofran Odt 4 mg Tablet] 1 - 2 tab PO Q4H PRN #30 tab.rapdis 05/27/19 Potassium Chloride 10 meq PO DAILY #6 tablet.er 08/10/19 Allergies/Adverse Reactions: No Known Allergies Allergy (Verified 08/10/19 12:02) Review of Systems Constitutional: PRESENT: weakness, weight loss Eyes: ABSENT: visual disturbances Cardiovascular: ABSENT: chest pain, dyspnea on exertion, edema, orthropnea, palpitations Respiratory: ABSENT: cough, hemoptysis Gastrointestinal: PRESENT: nausea, vomiting Genitourinary: ABSENT: dysuria, hematuria Musculoskeletal: PRESENT: muscle weakness - SHaky and tingling extermities Integumentary: ABSENT: rash, wounds Neurological: PRESENT: tingling, vertigo, weakness. ABSENT: abnormal gait, abnormal speech, confusion, dizziness, focal weakness, syncope Endocrine: ABSENT: cold intolerance, heat intolerance, polydipsia, polyuria Physical Exam - Physical Exam Vital Signs: Intake & Output 08/18/19 08/19/19 08/20/19 06:59 06:59 06:59 Weight 54.5 kg General appearance: PRESENT: no acute distress, cooperative Mouth exam: PRESENT: dry mucosa Respiratory exam: PRESENT: clear to auscultation dion Cardiovascular exam: PRESENT: RRR, +S1, +S2 GI/Abdominal exam: PRESENT: normal bowel sounds, soft Rectal exam: PRESENT: deferred Extremities exam: PRESENT: full ROM. ABSENT: calf tenderness, clubbing, pedal edema Musculoskeletal exam: PRESENT: full ROM Psychiatric exam: PRESENT: appropriate affect Skin exam: PRESENT: dry, intact, normal color Result Laboratory Results: 08/19/19 13:06 08/19/19 13:06 08/19/19 08/19/19 08/19/19 13:06 13:06 13:06 WBC 9.1 RBC 4.43 Hgb 12.5 Hct 35.3 L MCV 80 MCH 28.3 MCHC 35.5 RDW 13.0 Plt Count 283 Seg Neutrophils % 73.7 Sodium 136.3 L Potassium 2.5 L* Chloride 92 L Carbon Dioxide 32 H Anion Gap 12 BUN 7 Creatinine 0.58 Est GFR ( Amer) > 60 Glucose 82 Calcium 9.4 Total Bilirubin 0.8 AST 34 Alkaline Phosphatase 127 H Total Protein 8.0 Albumin 4.3 Urine Color NABOR Urine Appearance CLOUDY Urine pH 7.0 Ur Specific [place] 1.028 Urine Protein 100 H Urine Glucose (UA) NEGATIVE Urine Ketones TRACE H Urine Blood NEGATIVE Urine Nitrite NEGATIVE Ur Leukocyte Esterase MODERATE H Urine WBC (Auto) 15 Urine RBC (Auto) 1 Assessment & Plan - Time Time Spent: 30 to 50 Minutes Critical Time spent with patient: 25-34 minutes Medications reviewed and adjusted accordingly: Yes Anticipated discharge: Home Within: within 48 hours - Plan Summary Plan Summary: 29 yo at 22 wks EGA with hypokalemia-symptomatic, hyperemesis of , intractable vomiting, anemia -Admit to telemetry for observation and treatment of symptomatic hypokalemia and inability to tolerate PO -VS Q 4 hrs -NPO now and IVF: LR bolus the vitamin bag x1. After that LR at 150cc/hr -Out of bed as tolerated - heart tones here 150 bpm . Repeat Q shift by LDR staff -Potassium today 2.5, mag level and EGK are pending -Begin Mag sulfate per IV and KCL rider replacement therapy -Zofran 8 mg IV Q 6 hrs, scopolamine patch now x1 -Repeat CMP in am -Anemia in , mild. -Will consult hospitalist for assistance with electrolyte abnormalities.
[2019-08-19] MEDS ORDERED: ONDANSETRON HCL INJ/PF 4 MG/2 ML SDV IV SCH (15:00)
[2019-08-19] MEDS ORDERED: SCOPOLAMINE HYDROBROMIDE 1.5 MG PATCH.TD72 TD SCH (15:00)
[2019-08-19] MEDS ORDERED: THIAMINE HCL 100 MG, FOLIC ACID 1 MG in NORMAL SALINE 250 ML IV ONE (15:30)
[2019-08-19] MEDS ORDERED: MAGNESIUM SULFATE/D5W 1 GM/100 ML RTUPB IV SCH (15:30)
--- NOTE | 2019-08-19 16:02 | PDOC CONSULTATION ---
Consultation Consult Date: 08/19/19 Attending physician:: RON CASH Provider Consulted: MADISON CARDONA Consult reason:: Hypokalemia History of Present Illness Admission Date/PCP: 08/19/19 15:07 [facility] Patient complains of: Nausea vomiting muscle weakness and cramps History of Present Illness: TIMBO YOUNG is a 29 year old 22 weeks female G4, P3, who presents to the hospital with complaints of nausea vomiting that is been ongoing for the past few weeks occurring on and off since onset. Patient had recent visits and was given antiemetics as well as potassium chloride tablets. Patient has been taking the promethazine suppository and her potassium chloride tablets which is once a day but she has been unable to hold down her medications. Today she presents with muscle cramping and weakness involving both arms and legs. Also endorses lightheadedness. Initial labs reveal hypokalemia of 2.5. Admitted to the OB service for hyperemesis gravidarum and consult placed to hospitalist service for management of patient's symptomatic hypokalemia. Past Medical History Medical History: None Cardiac Medical History: Denies: Congestive Heart Failure, Coronary Artery Disease, Hypertension Pulmonary Medical History: Denies: Asthma, Chronic Obstructive Pulmonary Disease (COPD) Endocrine Medical History: Denies: Diabetes Mellitus Type 1, Diabetes Mellitus Type 2 Past Surgical History Past Surgical History: Reports: Section, Cholecystectomy, Orthopedic Surgery - spinal fusion Social History Information Source: Patient Smoking Status: Never Smoker Frequency of Alcohol Use: None Hx Recreational Drug Use: No Family History Family History: DM Parental Family History Reviewed: Yes Children Family History Reviewed: NA Sibling(s) Family History Reviewed.: Yes Medication/Allergy Home Medications: Ondansetron [Zofran Odt 4 mg Tablet] 1 - 2 tab PO Q4H PRN #30 tab.rapdis 05/27/19 Potassium Chloride 10 meq PO DAILY #6 tablet.er 08/10/19 Allergies/Adverse Reactions: No Known Allergies Allergy (Verified 08/10/19 12:02) Review of Systems Constitutional: PRESENT: fatigue. ABSENT: fever(s) Eyes: ABSENT: visual disturbances Nose, Mouth, and Throat: ABSENT: headache(s) Cardiovascular: ABSENT: chest pain Respiratory: ABSENT: dyspnea Gastrointestinal: PRESENT: abdominal pain, nausea, vomiting Musculoskeletal: PRESENT: muscle weakness Integumentary: ABSENT: diaphoresis Neurological: PRESENT: dizziness - Lightheadedness. ABSENT: confusion Psychiatric: ABSENT: anxiety Endocrine: ABSENT: polydipsia Physical Exam Vital Signs: Intake & Output 08/18/19 08/19/19 08/20/19 06:59 06:59 06:59 Weight 54.5 kg General appearance: PRESENT: no acute distress, cooperative Head exam: PRESENT: normocephalic Mouth exam: PRESENT: neck supple Neck exam: ABSENT: JVD Respiratory exam: PRESENT: clear to auscultation dion, unlabored. ABSENT: tachypnea, wheezes Cardiovascular exam: PRESENT: RRR, +S1, +S2. ABSENT: tachycardia GI/Abdominal exam: PRESENT: soft. ABSENT: guarding, tenderness Extremities exam: ABSENT: pedal edema Neurological exam: PRESENT: alert, awake, oriented to person, oriented to place, oriented to time Psychiatric exam: ABSENT: agitated, anxious Focused psych exam: ABSENT: pressured speech Skin exam: ABSENT: jaundice Results Laboratory Results: 08/19/19 13:06 08/19/19 13:06 08/19/19 08/19/19 08/19/19 13:06 13:06 13:06 WBC 9.1 RBC 4.43 Hgb 12.5 Hct 35.3 L MCV 80 MCH 28.3 MCHC 35.5 RDW 13.0 Plt Count 283 Seg Neutrophils % 73.7 Sodium 136.3 L Potassium 2.5 L* Chloride 92 L Carbon Dioxide 32 H Anion Gap 12 BUN 7 Creatinine 0.58 Est GFR ( Amer) > 60 Glucose 82 Calcium 9.4 Magnesium Total Bilirubin 0.8 AST 34 Alkaline Phosphatase 127 H Total Protein 8.0 Albumin 4.3 Urine Color NABOR Urine Appearance CLOUDY Urine pH 7.0 Ur Specific [place] 1.028 Urine Protein 100 H Urine Glucose (UA) NEGATIVE Urine Ketones TRACE H Urine Blood NEGATIVE Urine Nitrite NEGATIVE Ur Leukocyte Esterase MODERATE H Urine WBC (Auto) 15 Urine RBC (Auto) 1 08/19/19 13:06 WBC RBC Hgb Hct MCV MCH MCHC RDW Plt Count Seg Neutrophils % Sodium Potassium Chloride Carbon Dioxide Anion Gap BUN Creatinine Est GFR ( Amer) Glucose Calcium Magnesium 1.9 Total Bilirubin AST Alkaline Phosphatase Total Protein Albumin Urine Color Urine Appearance Urine pH Ur Specific [place] Urine Protein Urine Glucose (UA) Urine Ketones Urine Blood Urine Nitrite Ur Leukocyte Esterase Urine WBC (Auto) Urine RBC (Auto) Assessment and Plan - Diagnosis (1) Hypokalemia due to excessive gastrointestinal loss of potassium Is this a current diagnosis for this admission?: Yes Plan: Aggressive potassium position. Orders already placed for IV KCl 20 MEQ x3 today. I will add 40 mEq oral dose delayed release tablets to be given now as well. Mg wnl. I will also give another 40 mEq of KCl IV to start at midnight. Continue to monitor BMP Agree with telemetry (2) Prolonged QT interval Is this a current diagnosis for this admission?: Yes Plan: EKG shows prolonged QTc. I have calculated patient's QTC myself and it is 494 ms. Likely etiology are hypokalemia and antiemetic use. We will repeat EKG tomorrow morning. Consider reducing dose of Zofran or ultimately switching to Solu-Medrol to help with hyperemesis. Hopefully QTC should improve with correction of hypokalemia. (3) Hyperemesis complicating , antepartum Is this a current diagnosis for this admission?: Yes Plan: Currently receiving Zofran, B6 and scopolamine. Monitor QTC carefully. - Plan Summary Summary: Plan discussed with primary attending - Time Time Spent with patient: 25-34 minutes
[2019-08-19] MEDS: POTASSI CL 20 MEQ/50 ML RIDER 20 MEQ/50 ML RTUPB IV SCH ×3 (16:17→21:38)
[2019-08-19] MEDS ORDERED: POTASSIUM CHLORIDE 10 MEQ TABLET.ER PO ONE (16:45)
[2019-08-19] MEDS: NORMAL SALINE 1000 ML 1,000 ML with POTASSIUM CHLORIDE 20 MEQ, MAGNESIUM SULFATE 8 MEQ,... IV SCH ×5 (18:32)
[2019-08-19] MEDS: PYRIDOXINE HCL 50 MG TABLET PO SCH (18:32)
[2019-08-19] MEDS: PANTOPRAZOLE SODIUM 40 MG VIAL IV SCH (21:37)
[2019-08-20] MEDS: POTASSI CL 20 MEQ/50 ML RIDER 20 MEQ/50 ML RTUPB IV SCH (01:55)
[2019-08-20 05:45] LABS: ANION GAP 7 (5-19); BLOOD UREA NITROGEN 5 mg/dL (7-20); CARBON DIOXIDE 23 mmol/L (22-30); CHLORIDE 104 mmol/L (98-107)
[2019-08-20 05:51] LABS: GLUCOSE 63 mg/dL (75-110); POTASSIUM 2.9 mmol/L (3.6-5.0)
[2019-08-20] MEDS: GLUCAGON,HUMAN RECOMB 1 MG INJ SUBCUT PRN ×2 (06:18→11:50)
[2019-08-20] MEDS ORDERED: POTASSIUM CHLORIDE 10 MEQ TABLET.ER PO ONE (07:00)
[2019-08-20] MEDS ORDERED: DEXTROSE 5%-NORMAL SALINE 1,000 ML IV PRN (07:19)
[2019-08-20] MEDS: POTASSIUM CHLORIDE 20 MEQ/50 ML RTU IV SCH ×3 (08:11→13:01)
[2019-08-20] MEDS: PANTOPRAZOLE SODIUM 40 MG VIAL IV SCH ×2 (09:21→21:10)
[2019-08-20] MEDS: PYRIDOXINE HCL 50 MG TABLET PO SCH ×2 (09:21→17:31)
--- NOTE | 2019-08-20 09:44 | PDOC PROGRESS REPORT ---
Subjective Progress Note for:: 08/20/19 Subjective:: Patient had 2 episodes of vomiting yesterday and 3 episodes this morning. Has some soreness from vomiting in her left abdomen. Denies any shortness of breath. Reason For Visit: HYPEREMESIS OF , HYPOKALEMIA-SYMPTOMATIC Physical Exam Vital Signs: Temp Pulse Resp BP Pulse Ox 97.7 F 81 16 113/61 100 08/20/19 07:39 08/20/19 07:39 08/20/19 07:39 08/20/19 07:39 08/20/19 07:39 Intake & Output 08/19/19 08/20/19 08/21/19 06:59 06:59 06:59 Intake Total 1200 Balance 1200 Weight 55.9 kg General appearance: PRESENT: no acute distress, cooperative Respiratory exam: PRESENT: clear to auscultation dion, unlabored. ABSENT: tachypnea, wheezes Cardiovascular exam: PRESENT: RRR, +S1, +S2. ABSENT: tachycardia GI/Abdominal exam: PRESENT: soft, tenderness - Left upper quadrant. ABSENT: distended, guarding, rebound, rigid Neurological exam: PRESENT: alert, awake, oriented to person, oriented to place, oriented to time Results Laboratory Results: 08/19/19 13:06 08/20/19 05:15 08/19/19 08/19/19 08/19/19 13:06 13:06 13:06 WBC 9.1 RBC 4.43 Hgb 12.5 Hct 35.3 L MCV 80 MCH 28.3 MCHC 35.5 RDW 13.0 Plt Count 283 Seg Neutrophils % 73.7 Sodium 136.3 L Potassium 2.5 L* Chloride 92 L Carbon Dioxide 32 H Anion Gap 12 BUN 7 Creatinine 0.58 Est GFR ( Amer) > 60 Glucose 82 Calcium 9.4 Magnesium Total Bilirubin 0.8 AST 34 Alkaline Phosphatase 127 H Total Protein 8.0 Albumin 4.3 Urine Color NABOR Urine Appearance CLOUDY Urine pH 7.0 Ur Specific [place] 1.028 Urine Protein 100 H Urine Glucose (UA) NEGATIVE Urine Ketones TRACE H Urine Blood NEGATIVE Urine Nitrite NEGATIVE Ur Leukocyte Esterase MODERATE H Urine WBC (Auto) 15 Urine RBC (Auto) 1 08/19/19 08/20/19 13:06 05:15 WBC RBC Hgb Hct MCV MCH MCHC RDW Plt Count Seg Neutrophils % Sodium 133.9 L Potassium 2.9 L* Chloride 104 Carbon Dioxide 23 Anion Gap 7 BUN 5 L Creatinine 0.43 L Est GFR ( Amer) > 60 Glucose 63 L Calcium 8.0 L Magnesium 1.9 Total Bilirubin AST Alkaline Phosphatase Total Protein Albumin Urine Color Urine Appearance Urine pH Ur Specific [place] Urine Protein Urine Glucose (UA) Urine Ketones Urine Blood Urine Nitrite Ur Leukocyte Esterase Urine WBC (Auto) Urine RBC (Auto) Assessment and Plan - Diagnosis (1) Hypokalemia due to excessive gastrointestinal loss of potassium Is this a current diagnosis for this admission?: Yes Plan: Aggressive potassium repletion. Orders placed for another 60 mEq of KCl IV over 6 hours as well as oral potassium chloride 40 mEq. Recheck BMP at 3 PM Vomiting will need to be controlled Evaluated telemetry this morning which shows improvement of QTC (2) Prolonged QT interval Is this a current diagnosis for this admission?: Yes Plan: EKG this morning shows improvement of QTC to 484ms. Hopefully this should r esolve with adequate repletion of potassium chloride. (3) Hyperemesis complicating , antepartum Is this a current diagnosis for this admission?: Yes Plan: Currently receiving B6 and scopolamine. Monitor QTC carefully but reviewing telemetry this morning QTC does seem to be within acceptable range at this time. Recommend trial of Zofran or Solu-Medrol to help with control of vomiting which would facilitate adequate repletion of potassium. I will start patient on D5 normal saline as patient was noted to be hypoglycemic in the 60s this morning given that she is n.p.o. Accu-Cheks every 6 hours. - Plan Summary Summary: Plan discussed with primary nurse - Time Time Spent with patient: Less than 15 minutes
[2019-08-20] MEDS: ONDANSETRON HCL INJ/PF 4 MG/2 ML SDV IV PRN ×2 (10:27→20:39)
[2019-08-20] MEDS: DOCUSATE SODIUM 100 MG CAPSULE PO SCH ×2 (12:12→17:30)
--- NOTE | 2019-08-20 14:07 | PDOC PROGRESS REPORT ---
Subjective Progress Note for:: 08/20/19 Subjective:: Feeling somewhat less nauseated now. Had no vomiting overnight. vomited twice this am around the time of taking PO KCL . She states the pill was so large it made her jeremie and then vomitied. No fever, chills, HEARN, CP, SOB, cramping, tingling or weakness Good FM Reason For Visit: HYPEREMESIS OF , HYPOKALEMIA-SYMPTOMATIC Physical Exam - Physical Exam Vital Signs: Temp Pulse Resp BP Pulse Ox 98.2 F 70 16 109/67 100 08/20/19 11:36 08/20/19 11:36 08/20/19 11:36 08/20/19 11:36 08/20/19 11:36 Intake & Output 08/19/19 08/20/19 08/21/19 06:59 06:59 06:59 Intake Total 1200 100 Balance 1200 100 Weight 55.9 kg General appearance: PRESENT: no acute distress Respiratory exam: PRESENT: clear to auscultation dion Cardiovascular exam: PRESENT: RRR, +S1, +S2 Pulses: PRESENT: normal radial pulses GI/Abdominal exam: PRESENT: normal bowel sounds, soft Neurological exam: PRESENT: alert, awake, oriented to person, oriented to place, oriented to time Psychiatric exam: PRESENT: appropriate affect Skin exam: PRESENT: dry, intact Result Laboratory Results: 08/19/19 13:06 08/20/19 05:15 08/19/19 08/20/19 13:06 05:15 Sodium 133.9 L Potassium 2.9 L* Chloride 104 Carbon Dioxide 23 Anion Gap 7 BUN 5 L Creatinine 0.43 L Est GFR ( Amer) > 60 Glucose 63 L Calcium 8.0 L Magnesium 1.9 Heartbeat/NST: FHR 145 bpm by doppler Assessment & Plan - Diagnosis (1) Hypokalemia due to excessive gastrointestinal loss of potassium Is this a current diagnosis for this admission?: Yes (2) Hyperemesis complicating , antepartum Is this a current diagnosis for this admission?: Yes - Time Time Spent with patient: 15-24 minutes Anticipated discharge: Home Within: within 48 hours - Inpatient Certification Medical Necessity: Failure to Improve With Outpatient Therapy, Need For IV Fluids - Need for potassium replacement and cannot tolerate PO - Plan Summary Plan Summary: at 22 wks EGA with hypokalemia with abnormal EKG findings, hyperemesis of and not tolerating PO -VSS this am -FHT audible: normal -Exam normal -VOmited twice today. continue scopolamine patch and now that EKG improved will add Zofran 4mg Q 6 hr prn nausea. Continue Vit B6 ATC Had been vomiting 10-15 times a day a home and only twice today with large pill. Recommend K-phos if able when PO potassium required. WIll try UZMA diet later today if no further vomiting -Continue Potassium replacement per hospitalist recommendations as level was 2.9 this am. Repeat CMP in am. -Voiding -Reports no BM for 2 weeks : colace BID -ENcourage ambulation
[2019-08-20 15:21] LABS: BLOOD UREA NITROGEN 5 mg/dL (7-20); CALCIUM 7.9 mg/dL (8.4-10.2); CARBON DIOXIDE 22 mmol/L (22-30); GLUCOSE 95 mg/dL (75-110); POTASSIUM 3.7 mmol/L (3.6-5.0)
[2019-08-20 15:27] LABS: CHLORIDE 107 mmol/L (98-107)
[2019-08-20 15:31] LABS: ANION GAP 5 (5-19)
[2019-08-20] MEDS ORDERED: CALCIUM GLUCONATE 1000 MG/10 ML INJ IV ONE (16:00)
[2019-08-20] MEDS: NORMAL SALINE 1000 ML 1,000 ML with POTASSIUM CHLORIDE 20 MEQ, MAGNESIUM SULFATE 8 MEQ,... IV SCH ×5 (17:31)
[2019-08-20] MEDS: POTASSIUM CHLORIDE 10 MEQ TABLET.ER PO SCH (21:10)
--- NOTE | 2019-08-21 00:34 | EKG REPORT ---
SEVERITY:- ABNORMAL ECG - SINUS RHYTHM INFERIOR Q WAVES, PROBABLY NORMAL VARIATION BORDERLINE T ABNORMALITIES, DIFFUSE LEADS BORDERLINE PROLONGED QT INTERVAL : Confirmed by: Karen Gaytan 21-Aug-2019 00:34:09
--- NOTE | 2019-08-21 00:35 | EKG REPORT ---
SEVERITY:- ABNORMAL ECG - SINUS RHYTHM PROLONGED QT INTERVAL : Confirmed by: Karen Gaytan 21-Aug-2019 00:34:15
[2019-08-21 05:52] LABS: ALBUMIN 2.3 g/dL (3.5-5.0); ALKALINE PHOSPHATASE 70 U/L (38-126); ANION GAP 5 (5-19); ASPARTATE AMINO TRANSFERASE 24 U/L (14-36); BILIRUBIN,DIRECT 0.3 mg/dL (0.0-0.4); BILIRUBIN,TOTAL 0.3 mg/dL (0.2-1.3); BLOOD UREA NITROGEN 4 mg/dL (7-20); CALCIUM 7.8 mg/dL (8.4-10.2); CARBON DIOXIDE 20 mmol/L (22-30); CHLORIDE 111 mmol/L (98-107); POTASSIUM 3.7 mmol/L (3.6-5.0); TOTAL PROTEIN 4.8 g/dL (6.3-8.2)
[2019-08-21 05:57] LABS: GLUCOSE 65 mg/dL (75-110)
--- NOTE | 2019-08-21 08:22 | EKG REPORT ---
SEVERITY:- BORDERLINE ECG - SINUS RHYTHM INFERIOR Q WAVES, PROBABLY NORMAL VARIATION BORDERLINE T ABNORMALITIES, ANTERIOR LEADS : Confirmed by: Karen Gaytan 21-Aug-2019 08:22:18
--- NOTE | 2019-08-21 08:25 | Discharge Summary ---
Discharge Summary (SDC) - Discharge Final Diagnosis: Hyperemesis with intractable vomiting, now resolved Hypokalmeia with symptoms and EKG changes, now resolved Intrauterine Condition: Good Treatment or Instructions: Continue [place] diet and hydration. Continue Vit B6 25 mg three times daily Zofran 4 mg PO Q 6 hours prn Scopolamine patch for 3 days. Prescriptions: Docusate Sodium [Colace 100 mg Capsule] 100 mg PO BID 30 Days #60 capsule Scopolamine Hydrobromide [Transderm-Scop 1.5 mg Patch] 1 each TD Q3DAYS 6 Days #1 patch.[id number] Pyridoxine HCl [Vitamin B-6 Tablet 50 mg] 100 mg PO BID 15 Days #60 tablet Referrals: [facility] [Primary [facility]] - Discharge Diet: As Tolerated Respiratory Treatments at Home: Deep Breathing/Coughing Discharge Activity: Activity As Tolerated Report the Following to Your Physician Immediately: Shortness of Breath, Vomiting, Fever over 101 Degrees, Unusual Bleeding, Drainage-Foul Smelling, Tingling Sensation, IV Site Infection Signs
[2019-08-21 09:02] VITALS: BP 92/61
[2019-08-21] MEDS: DOCUSATE SODIUM 100 MG CAPSULE PO SCH (09:54)
[2019-08-21] MEDS: PYRIDOXINE HCL 50 MG TABLET PO SCH (09:54)
[2019-08-21] MEDS: POTASSIUM CHLORIDE 10 MEQ TABLET.ER PO SCH (09:54)
[2019-08-21] MEDS: PANTOPRAZOLE SODIUM 40 MG VIAL IV SCH (09:54)
--- NOTE | 2019-08-21 11:17 | PDOC PROGRESS REPORT ---
Subjective Progress Note for:: 08/21/19 Subjective:: Patient is doing well today. She did vomit 4 times yesterday but states that she feels good today. Otherwise she feels ready to go home. Reason For Visit: HYPEREMESIS OF , HYPOKALEMIA-SYMPTOMATIC Physical Exam Vital Signs: Temp Pulse Resp BP Pulse Ox 98.1 F 80 20 92/61 L 100 08/21/19 09:00 08/21/19 09:00 08/21/19 09:00 08/21/19 09:00 08/21/19 09:00 Intake & Output 08/20/19 08/21/19 08/22/19 06:59 06:59 06:59 Intake Total 2223 1322 1023 Balance 2223 1322 1023 Weight 55.9 kg 60.8 kg General appearance: PRESENT: no acute distress, cooperative Respiratory exam: PRESENT: symmetrical, unlabored. ABSENT: accessory muscle use, retraction, tachypnea Neurological exam: PRESENT: alert, awake Psychiatric exam: ABSENT: anxious Focused psych exam: ABSENT: pressured speech Skin exam: ABSENT: jaundice Results Laboratory Results: 08/19/19 13:06 08/21/19 05:14 08/20/19 08/20/19 08/21/19 14:46 14:46 05:14 Sodium 134.3 L 136.0 L Potassium 3.7 3.7 Chloride 107 111 H Carbon Dioxide 22 20 L Anion Gap 5 5 BUN 5 L 4 L Creatinine 0.37 L 0.44 L Est GFR ( Amer) > 60 > 60 Glucose 95 65 L Calcium 7.9 L 7.8 L Total Bilirubin 0.3 AST 24 Alkaline Phosphatase 70 Total Protein 4.8 L Albumin 2.7 L 2.3 L Assessment and Plan - Diagnosis (1) Hypokalemia due to excessive gastrointestinal loss of potassium Is this a current diagnosis for this admission?: Yes Plan: Serum potassium levels have normalized. And show adequate control of nausea. Recommend potassium chloride supplements total of 40 MEQ per day. (2) Prolonged QT interval Is this a current diagnosis for this admission?: Yes Plan: QTC on EKG this morning has normalized with adequate repletion of potassium. (3) Hyperemesis complicating , antepartum Is this a current diagnosis for this admission?: Yes Plan: Currently receiving B6 and scopolamine and Zofran. Management as per OB. - Plan Summary Summary: Plan discussed with primary attending - Time Time Spent with patient: Less than 15 minutes
== END 2019-08-21 11:14 | disposition home or self-care (01) | DRG 833 ==
LOC: LC 12:47 → 4N 15:07
PROVIDERS: ADMIT Obstetrics & Gynecology; ATTEND Obstetrics & Gynecology
DX: O21.1 Hyperemesis gravidarum with metabolic disturbance (principal); Z90.49 Acquired absence of other specified parts of digestive tract; Z3A.22 22 weeks gestation of pregnancy; Z83.3 Family history of diabetes mellitus; R94.31 Abnormal electrocardiogram [ECG] [EKG]; O26.892 Other specified pregnancy related conditions, second trimester; O99.512 Diseases of the respiratory system complicating pregnancy, second trimester; J45.909 Unspecified asthma, uncomplicated; O99.342 Other mental disorders complicating pregnancy, second trimester; F43.10 Post-traumatic stress disorder, unspecified
CPT/HCPCS: 36415; 80048; 80053; 80307; 81001; 82040; 82962; 83735; 85025; 93005; 93010; C9113; G0378; G0379; J0610; J1610; J2405; J3411; J3475; J3480; J3490; J7030; J7042; J7050

== ENCOUNTER 2019-09-06 18:27 | Inpatient (IN) | payer OTHER ==
[2019-09-06] MEDS ORDERED: NORMAL SALINE 1000 ML 1,000 ML IV ONE (18:36)
--- NOTE | 2019-09-06 18:45 | ER Document Report ---
ED Medical Screen (RME) - General Chief Complaint: Nausea/Vomiting Stated Complaint: VOMITING Time Seen by Provider: 09/06/19 18:35 Primary Care Provider: EVER CHONG [Primary Care Provider] - Follow up as needed Mode of Arrival: Wheelchair Information source: Patient Notes: 29-year-old female presented to ED for pelvic and vaginal tightness very thirsty drinking water and then throwing it all back up palpitations hands and feet numb. She is 5 para 3. She is 25 weeks . She was recently hospitalized for low potassium and low sugar. Patient is alert and oriented at this time. She does appear to be twitching throughout her interview. She is presenting with symptoms of low potassium. I have greeted and performed a rapid initial assessment of this patient. A comprehensive ED assessment and evaluation of the patient, analysis of test results and completion of medical decision making process will be conducted by an additional ED providers. TRAVEL OUTSIDE OF THE [place] IN LAST 30 DAYS: No - Related Data Allergies/Adverse Reactions: No Known Allergies Allergy (Verified 09/06/19 18:32) Past Medical History - Past Medical History Cardiac Medical History: Denies: Hx Congestive Heart Failure, Hx Coronary Artery Disease, Hx Hypertension Pulmonary Medical History: Denies: Hx Asthma, Hx COPD Endocrine Medical History: Denies: Hx Diabetes Mellitus Type 1, Hx Diabetes Mellitus Type 2 Psychiatric Medical History: Reports: Hx Depression Past Surgical History: Reports: Hx Section, Hx Cholecystectomy, Hx Orthopedic Surgery - spinal fusion - Immunizations Immunizations up to date: Yes Hx Diphtheria, Pertussis, Tetanus Vaccination: Yes Physical Exam - Vital signs Vitals: Temp Pulse Resp BP Pulse Ox 98.2 F 92 20 141/82 H 96 09/06/19 18:30 09/06/19 18:30 09/06/19 18:30 09/06/19 18:30 09/06/19 18:30 Course - Vital Signs Vital signs: Temp Pulse Resp BP Pulse Ox 98.2 F 92 20 141/82 H 96 09/06/19 18:30 09/06/19 18:30 09/06/19 18:30 09/06/19 18:30 09/06/19 18:30 Doctor's Discharge - Discharge Referrals: ARLETTE,EVER [Primary Care Provider] - Follow up as needed
[2019-09-06] MEDS ORDERED: PROMETHAZINE HCL INJ 25 MG/1 ML VIAL IV ONE (19:02)
--- NOTE | 2019-09-06 19:09 | ER Document Report ---
ED General - General Chief Complaint: Nausea/Vomiting Stated Complaint: VOMITING Time Seen by Provider: 09/06/19 18:35 Primary Care Provider: EVER CHONG [Primary Care Provider] - Follow up as needed Mode of Arrival: Wheelchair TRAVEL OUTSIDE OF THE [place] IN LAST 30 DAYS: No - HPI Notes: Chief complaint: Vomiting and muscular cramping 29-year-old female 5 para 3 AB 1 at 25 weeks EGA discharge from the hospital here 2 weeks ago after admission for hyperemesis gravidarum and associated electrolyte disturbances. She reports intolerance previously for Reglan which causes palpitations. She was treated successfully in the hospital with a combination of pyridoxine, Zofran and Phenergan suppositories and went home on all of this. She apparently ran out of the Phenergan suppository several days ago and has not refilled lease. She is once again had multiple episodes of vomiting today and is now reporting paresthesias of hands and feet and some muscular twitching. She denies abdominal pain. She denies uterine contractions. She denies vaginal discharge or bleeding. She denies fever chills. She denies dysuria. She denies back pain. - Related Data Allergies/Adverse Reactions: No Known Allergies Allergy (Verified 09/06/19 18:32) Home Medications: Potassium, phenergen supp, PNV Past Medical History - General Information source: Patient - Social History Smoking Status: Never Smoker Chew tobacco use (# tins/day): No Frequency of alcohol use: None Drug Abuse: None Family History: DM Patient has suicidal ideation: No Patient has homicidal ideation: No - Past Medical History Cardiac Medical History: Denies: Hx Congestive Heart Failure, Hx Coronary Artery Disease, Hx Hypertension Pulmonary Medical History: Denies: Hx Asthma, Hx COPD Endocrine Medical History: Denies: Hx Diabetes Mellitus Type 1, Hx Diabetes M ellitus Type 2 Psychiatric Medical History: Reports: Hx Depression Past Surgical History: Reports: Hx Section, Hx Cholecystectomy, Hx Orthopedic Surgery - spinal fusion - Immunizations Immunizations up to date: Yes Hx Diphtheria, Pertussis, Tetanus Vaccination: Yes Review of Systems - Review of Systems Notes: Constitutional: Negative for fever. HENT: Negative for sore throat. Eyes: Negative for visual changes. Cardiovascular: Negative for chest pain. Respiratory: Negative for shortness of breath. Gastrointestinal: As per HPI. Genitourinary: Negative for dysuria. Musculoskeletal: Negative for back pain. Skin: Negative for rash. Neurological: Negative for headaches or focal weakness. 10 point ROS negative except as marked above and in HPI. Physical Exam - Vital signs Vitals: Temp Pulse Resp BP Pulse Ox 98.2 F 92 20 141/82 H 96 09/06/19 18:30 09/06/19 18:30 09/06/19 18:30 09/06/19 18:30 09/06/19 18:30 - Notes Notes: GENERAL: Well-developed well-nourished appearing in no acute distress. SKIN: Good turgor no rashes. HEAD: Normocephalic atraumatic. EYES: PERRLA. EOMI. Conjunctivae and sclerae clear. EARS: CANALS AND TMS CLEAR. NOSE: CLEAR. MOUTH: Moist mucosa. Good dentition. No stridor or edema. No drooling. NECK: Supple. No masses or thyromegaly. No adenopathy. Carotids 2+ without bruits. No JVD. BACK: Symmetrical without tenderness. CHEST: Respirations unlabored. Breath sounds clear and symmetrical. HEART: Regular rhythm. No murmur gallop or rub. ABDOMEN: Gravid uterus size consistent with dates. Soft nontender without masses, hepatosplenomegaly or rebound. Bowel sounds normally active. No bruits. GENITALIA: Deferred. EXTREMITIES: No edema. No calf tenderness. Cap refill less than 1.5 seconds. Dorsalis pedis and posterior tibial pulses 3+ and symmetrical. NEUROLOGICAL: GCS 15. Alert and oriented x3. Normal gait. Fluent speech. Cranial nerves II through XII intact. Sensorimotor and cerebellar normal. Norm al tone. PSYCHIATRIC: Appropriate affect. Course - Re-evaluation Re-evalutation: 09/06/19 20:19 Initial evaluation was consistent with recurrent/persistent hyperemesis gravidarum. Patient was given IV normal saline initially and IV Phenergan. This is controlled her nausea nicely at this point. We can try some p.o. fluids for her. Her potassium is low at 2.4 and she had symptoms of this significant electrolyte disturbance. Her magnesium level is normal at 4.0. I will give her some oral potassium and a K rider intravenously. We are giving her additional IV fluids; at this point she will receive some D5 LR. I am waiting for urinalysis to come back. heart tone is good by Doppler. I will discuss current findings with on-call [employer]. 09/06/19 20:29 Findings reviewed with on-call [employer], Dr. Marva Melgoza who will admit patient to antepartum. - Vital Signs Vital signs: Temp Pulse Resp BP Pulse Ox 98.2 F 92 14 121/83 96 09/06/19 18:30 09/06/19 18:30 09/06/19 18:48 09/06/19 18:47 09/06/19 18:30 - Laboratory Result Diagrams: 09/06/19 18:49 09/06/19 18:49 Laboratory results interpreted by me: 09/06/19 09/06/19 18:49 18:49 Hct 34.9 L MCHC 36.1 H Sodium 132.3 L Potassium 2.4 L* Chloride 87 L Carbon Dioxide 33 H Glucose 147 H AST 38 H Alkaline Phosphatase 141 H Lipase 15.6 L - EKG Interpretation by Me Additional EKG results interpreted by me: 09/06/19 20:28 Twelve-lead EKG from 1916 hrs. reviewed contemporaneously by me demonstrating a normal sinus rhythm and some borderline QT prolongation. Discharge - Discharge Clinical Impression: Hyperemesis complicating , antepartum, Hypokalemia due to excessive gastrointestinal loss of potassium Intractable vomiting Qualifiers: Nausea presence: with nausea Disposition: ADMITTED INPATIENT Admitting Provider: Dr. Marva Melgoza Unit Admitted: Post [facility]errals: [facility] [Primary Care Provider] - Follow up as needed
[2019-09-06 19:18] LABS: ABSOLUTE BASOPHILS # (AUTO) 0.1 10^3/uL (0.0-0.2); ABSOLUTE EOSINOPHILS # (AUTO) 0.2 10^3/uL (0.0-0.6); ABSOLUTE LYMPHOCYTES (AUTO) 2.1 10^3/uL (0.5-4.7); ABSOLUTE MONOCYTES (AUTO) 0.6 10^3/uL (0.1-1.4); ABSOLUTE NEUT (AUTO) 6.8 10^3/uL (1.7-8.2); BASOPHILS % (AUTO) 0.6 % (0-2); EOSINOPHILS % (AUTO) 1.7 % (0-6); HEMATOCRIT 34.9 % (36.0-47.0); HEMOGLOBIN 12.6 g/dL (12.0-15.5); LYMPHOCYTES % (AUTO) 21.8 % (13-45); MEAN CORPUSCULAR HEMOGLOBIN 28.8 pg (27.0-33.4); MEAN CORPUSCULAR HGB CONC 36.1 g/dL (32.0-36.0); MEAN CORPUSCULAR VOLUME 80 fl (80-97); MONOCYTES % (AUTO) 5.8 % (3-13); PLATELET COUNT 310 10^3/uL (150-450); RED BLOOD COUNT 4.37 10^6/uL (3.72-5.28); RED CELL DISTRIBUTION WIDTH 13.1 % (11.5-14.0); SEGMENTED NEUTROPHILS % (AUTO) 70.1 % (42-78); TOTAL CELLS COUNTED % (AUTO) 100 %; WHITE BLOOD COUNT 9.7 10^3/uL (4.0-10.5)
[2019-09-06 19:33] LABS: ALKALINE PHOSPHATASE 141 U/L (38-126); ANION GAP 12 (5-19); ASPARTATE AMINO TRANSFERASE 38 U/L (14-36); BILIRUBIN,DIRECT 0.3 mg/dL (0.0-0.4); BILIRUBIN,TOTAL 0.5 mg/dL (0.2-1.3); BLOOD UREA NITROGEN 8 mg/dL (7-20); CALCIUM 9.2 mg/dL (8.4-10.2); CARBON DIOXIDE 33 mmol/L (22-30); CHLORIDE 87 mmol/L (98-107); GLUCOSE 147 mg/dL (75-110); TOTAL PROTEIN 7.8 g/dL (6.3-8.2)
[2019-09-06 19:36] LABS: POTASSIUM 2.4 mmol/L (3.6-5.0)
[2019-09-06] MEDS ORDERED: POTASSI CL 20 MEQ/50 ML RIDER 20 MEQ/50 ML RTUPB IV ONE (20:12)
[2019-09-06] MEDS ORDERED: DEXTROSE 5%-LACTATED RINGERS 1,000 ML IV ONE (20:13)
[2019-09-06 21:09] LABS: APPEARANCE,URINE SLIGHTLY-CLOUDY; BILIRUBIN,URINE SMALL (NEGATIVE); COLOR,URINE AMBER; GLUCOSE, URINE 50 mg/dL (NEGATIVE); KETONES,URINE NEGATIVE (NEGATIVE); PROTEIN,URINE 30 mg/dL (NEGATIVE); URINE SPECIFIC GRAVITY 1.019
[2019-09-06] MEDS ORDERED: DEXTROSE 5%-1/2 NORMAL SALINE 1,000 ML with POTASSIUM CHLORIDE 20 MEQ IV PRN ×2 (21:41)
--- NOTE | 2019-09-06 21:50 | PDOC H&P ---
History of Present Illness Admission Date/PCP: 09/06/19 20:[facility] Patient complains of: not tolerating PO: hyperemesis of and muscle twitching History of Present Illness: TIMBO YOUNG is a 29 year old female TIMBO YOUNG is a 29 year old female at 25 wks EGA for nausea/vomiting, muscle twitching in arms and legs. SHe has hx of hyperemesis this with 15 lb weight loss. Was seen in the ED on 08/10/19 and given PO potassium to take d/t hypokalemia ( K at 2.5 ) at that time. She was also admitted with hypokalemia 2-3 wks ago and got IV and PO potassium at that time. She has been on Phenergan supp PV and zofran ODT but ran out of her Phenergan MI. Now vomiting again with feeling twitching in arms/legs. Feels weak an dizzy with ambulation. Good FM Past Medical History LMP: PHAM 12/18 Cardiac Medical History: Denies: Congestive Heart Failure, Coronary Artery Disease, Hypertension Pulmonary Medical History: Denies: Asthma, Chronic Obstructive Pulmonary Disease (COPD) Endocrine Medical History: Denies: Diabetes Mellitus Type 1, Diabetes Mellitus Type 2 Psychiatric Medical History: Reports: Depression Past Surgical History Past Surgical History: Reports: Section, Cholecystectomy, Orthopedic Surgery - spinal fusion Social History Smoking Status: Never Smoker Electronic Cigarette use?: No Frequency of Alcohol Use: None Hx Recreational Drug Use: No Family History Family History: DM Parental Family History Reviewed: Yes Children Family History Reviewed: Yes Sibling(s) Family History Reviewed.: Yes Medication/Allergy Home Medications: Docusate Sodium [Colace 100 mg Capsule] 100 mg PO BID 30 Days #60 capsule 08/21/19 Potassium Chloride 20 meq PO BID 7 Days #1 bottle 08/21/19 Ondansetron HCl [Zofran] 4 mg PO Q6HP PRN 09/06/19 Promethazine HCl [Phenergan 25 mg Supp.rect] 1 supp [place] Q6HP PRN 09/06/19 Allergies/Adverse Reactions: No Known Allergies Allergy (Verified 09/06/19 18:32) Review of Systems Constitutional: PRESENT: weight loss. ABSENT: chills, fever(s), headache(s), weight gain Cardiovascular: ABSENT: chest pain, dyspnea on exertion, edema, orthropnea, palpitations Respiratory: ABSENT: cough, hemoptysis Gastrointestinal: PRESENT: nausea, vomiting. ABSENT: abdominal pain, cons tipation, diarrhea, hematemesis, hematochezia Musculoskeletal: PRESENT: other - twitching in arms/leg muscles Integumentary: ABSENT: rash, wounds Psychiatric: ABSENT: anxiety, depression, homidical ideation, suicidal ideation Endocrine: ABSENT: cold intolerance, heat intolerance, polydipsia, polyuria Physical Exam - Physical Exam Vital Signs: Temp Pulse Resp BP Pulse Ox 98.2 F 92 14 105/69 99 09/06/19 18:30 09/06/19 18:30 09/06/19 21:01 09/06/19 21:00 09/06/19 21:01 Intake & Output 09/05/19 09/06/19 09/07/19 06:59 06:59 06:59 Intake Total 1000 Balance 1000 Weight 53.2 kg General appearance: PRESENT: no acute distress, cooperative Respiratory exam: PRESENT: clear to auscultation dion Cardiovascular exam: PRESENT: RRR, +S1, +S2 Vascular exam: PRESENT: normal capillary refill GI/Abdominal exam: PRESENT: normal bowel sounds, soft Extremities exam: PRESENT: full ROM. ABSENT: calf tenderness, clubbing, pedal edema Neurological exam: PRESENT: alert, oriented to person, oriented to place, oriented to time Psychiatric exam: PRESENT: appropriate affect Skin exam: PRESENT: dry, warm Result Laboratory Results: 09/06/19 18:49 09/06/19 18:49 09/06/19 09/06/19 09/06/19 18:49 18:49 18:49 WBC 9.7 RBC 4.37 Hgb 12.6 Hct 34.9 L MCV 80 MCH 28.8 MCHC 36.1 H RDW 13.1 Plt Count 310 Seg Neutrophils % 70.1 Sodium 132.3 L Potassium 2.4 L* Chloride 87 L Carbon Dioxide 33 H Anion Gap 12 BUN 8 Creatinine 0.79 Est GFR ( Amer) > 60 Glucose 147 H Calcium 9.2 Magnesium 2.0 Total Bilirubin 0.5 AST 38 H Alkaline Phosphatase 141 H Total Protein 7.8 Albumin 4.0 Lipase 15.6 L Urine Color Urine Appearance Urine pH Ur Specific [place] Urine Protein Urine Glucose (UA) Urine Ketones Urine Blood Urine RBC (Auto) 09/06/19 20:30 WBC RBC Hgb Hct MCV MCH MCHC RDW Plt Count Seg Neutrophils % Sodium Potassium Chloride Carbon Dioxide Anion Gap BUN Creatinine Est GFR ( Amer) Glucose Calcium Magnesium Total Bilirubin AST Alkaline Phosphatase Total Protein Albumin Lipase Urine Color NABOR Urine Appearance SLIGHTLY-CLOUDY Urine pH 7.0 Ur Specific [place] 1.019 Urine Protein 30 H Urine Glucose (UA) 50 H Urine Ketones NEGATIVE Urine Blood NEGATIVE Urine RBC (Auto) 1 Assessment & Plan - Diagnosis (1) Hyperemesis complicating , antepartum Is this a current diagnosis for this admission?: Yes Plan: 29 yo at 25 wks EGA with hypokalemia-symptomatic, hyperemesis of , intractable vomiting, anemia -Admit to telemetry for observation and treatment of symptomatic hypokalemia and inability to tolerate PO -VS Q 4 hrs -NPO now and IVF: D5 NS with 20 KCL at 150cc/hr -Out of bed as tolerated - heart tones here 150 bpm . Repeat Q day -Potassium today 2.4, mag level normal -s/p KCL rider replacement therapy in ED, will add to IVF as well. -Zofran 4 mg IV Q 6 hrs, scopolamine patch now x1 -Repeat CMP in am -Anemia in , mild (3) Intractable vomiting Qualifiers: Nausea presence: with nausea Is this a current diagnosis for this admission?: Yes (4) Anemia affecting fourth Is this a current diagnosis for this admission?: Yes
[2019-09-07] MEDS: FAMOTIDINE INJ/PF 20 MG/2 ML SDV IV SCH ×3 (00:07→21:29)
[2019-09-07] MEDS: POTASSI CL 20 MEQ/D5-1/2NS 1L 1000 ML IV PRN ×2 (00:08→07:26)
[2019-09-07] MEDS ORDERED: PROMETHAZINE HCL 25 MG SUPP.RECT PR PRN (00:38)
[2019-09-07] MEDS ORDERED: SCOPOLAMINE HYDROBROMIDE 1.5 MG PATCH.TD72 TD ONE (00:45)
[2019-09-07] MEDS ORDERED: SCOPOLAMINE HYDROBROMIDE 1.5 MG PATCH.TD72 ONE (00:59)
[2019-09-07 06:16] LABS: ALBUMIN 2.6 g/dL (3.5-5.0); ALKALINE PHOSPHATASE 90 U/L (38-126); ANION GAP 5 (5-19); ASPARTATE AMINO TRANSFERASE 22 U/L (14-36); BILIRUBIN,DIRECT 0.2 mg/dL (0.0-0.4); BILIRUBIN,TOTAL 0.4 mg/dL (0.2-1.3); BLOOD UREA NITROGEN 4 mg/dL (7-20); CALCIUM 7.5 mg/dL (8.4-10.2); CARBON DIOXIDE 29 mmol/L (22-30); CHLORIDE 95 mmol/L (98-107); GLUCOSE 92 mg/dL (75-110); TOTAL PROTEIN 5.3 g/dL (6.3-8.2)
[2019-09-07 06:21] LABS: POTASSIUM 2.7 mmol/L (3.6-5.0)
[2019-09-07] MEDS ORDERED: PROMETHAZINE HCL 25 MG SUPP.RECT PR ONE (07:22)
[2019-09-07] MEDS: DOCUSATE SODIUM 100 MG CAPSULE PO SCH ×2 (09:16→18:17)
[2019-09-07] MEDS: POTASSIUM CHLORIDE 20 MEQ PACKET PO SCH ×2 (09:17→18:18)
[2019-09-07] MEDS ORDERED: DEXAMETHASONE SOD PHOSPHATE INJ 4 MG/1 ML VIAL IV ONE (09:30)
--- NOTE | 2019-09-07 09:35 | EKG REPORT ---
SEVERITY:- BORDERLINE ECG - SINUS RHYTHM INFERIOR Q WAVES, PROBABLY NORMAL VARIATION BORDERLINE PROLONGED QT INTERVAL : Confirmed by: Karen Gaytan 07-Sep-2019 09:35:03
[2019-09-07] MEDS ORDERED: POTASSIUM CHLORIDE 10 MEQ TABLET.ER PO SCH (10:00)
--- NOTE | 2019-09-07 10:18 | PDOC CONSULTATION ---
Consultation Consult Date: 09/07/19 Attending physician:: ZAKIA MURRIETA Provider Consulted: SCOTT SORIANO JR Consult reason:: hypokalemia History of Present Illness Admission Date/PCP: 09/06/19 20:45 [facility] History of Present Illness: TIMBO YOUNG is a 29 year old female who I think is 5 para 3, and approximately 25 weeks currently. Patient was admitted through the emergency room yesterday evening with signs of hypokalemia consisting of weakness and muscle twitching of the arms and legs. Patient states her recommended she come to the emergency room because she had been sleeping all day. Patient was found to have a potassium level of 2.4. Patient evidently was supposed to be taking Phenergan for hyperemesis gravidarum and had run out of that medication and so therefore had been doing more vomiting than usual. Patient's recent past medical history concerning hypokalemia is important. Recently she was in the hospital for hypokalemia and a slightly prolonged QT interval on her EKG. July 30 her potassium level was 2.8 this when she was in the hospital. On August 20 her potassium level was 3.7, as stated above last night her potassium level in the emergency room was 2.4. Back in May 2019 her potassium was 3.9. Other lab values from this admission include a normal white blood cell count 9.7 magnesium is normal at 2.0, calcium normal at 9.2, albumin normal at 4.0.. TSH is pending. EKG done last night in the emergency room at 1900 hrs. shows a slightly prolonged QT interval however this is minimal. Patient denies other chronic illnesses such as diabetes hypertension or heart disease. In the emergency room patient has had 1K rider and this morning has had oral potassium, however patient is nauseated and has not taken the oral solution yet. Nor eaten any of her breakfast. Patient has also had some IV fluids as well as thiamine and folate. Patient has also had a dose of Decadron for her hyperemesis . Past Medical History Cardiac Medical History: Denies: Congestive Heart Failure, Coronary Artery Disease, Hypertension Pulmonary Medical History: Denies: Asthma, Chronic Obstructive Pulmonary Disease (COPD) Endocrine Medical History: Denies: Diabetes Mellitus Type 1, Diabetes Mellitus Type 2 Psychiatric Medical History: Reports: Depression Past Surgical History Past Surgical History: Reports: Section, Cholecystectomy, Orthopedic Surgery - spinal fusion Social History Smoking Status: Never Smoker Electronic Cigarette use?: No Frequency of Alcohol Use: None Hx Recreational Drug Use: No Drugs: None Hx Prescription Drug Abuse: No Family History Family History: DM Parental Family History Reviewed: No Children Family History Reviewed: No Sibling(s) Family History Reviewed.: No Medication/Allergy Home Medications: Docusate Sodium [Colace 100 mg Capsule] 100 mg PO BID 30 Days #60 capsule Potassium Chloride 20 meq PO BID 7 Days #1 bottle 08/21/19 Ondansetron HCl [Zofran] 4 mg PO Q6HP PRN 09/06/19 Promethazine HCl [Phenergan 25 mg Supp.rect] 1 supp [place] Q6HP PRN 09/06/19 Allergies/Adverse Reactions: cat dander Allergy (Verified 09/07/19 06:04) Review of Systems Constitutional: PRESENT: as per HPI, weakness Cardiovascular: ABSENT: chest pain, dyspnea on exertion, edema, orthropnea, palpitations Respiratory: ABSENT: cough, hemoptysis Gastrointestinal: PRESENT: nausea, vomiting. ABSENT: abdominal pain, constipation, diarrhea, hematemesis, hematochezia Genitourinary: ABSENT: dysuria, hematuria Neurological: ABSENT: abnormal gait, abnormal speech, confusion, dizziness, fo aggie weakness, syncope Psychiatric: ABSENT: anxiety, depression, homidical ideation, suicidal ideation Physical Exam Vital Signs: Temp Pulse Resp BP Pulse Ox 97.8 F 73 16 121/63 100 09/07/19 08:00 09/07/19 08:00 09/07/19 08:00 09/07/19 08:00 09/07/19 08:00 Intake & Output 09/06/19 09/07/19 09/08/19 06:59 06:59 06:59 Intake Total 3050 Balance 3050 Weight 53.2 kg General appearance: PRESENT: no acute distress, well-developed, well-nourished Eye exam: PRESENT: conjunctiva pink, EOMI, PERRLA. ABSENT: scleral icterus Respiratory exam: PRESENT: clear to auscultation dion. ABSENT: rales, rhonchi, wheezes Cardiovascular exam: PRESENT: RRR. ABSENT: diastolic murmur, rubs, systolic murmur Neurological exam: PRESENT: alert, awake, oriented to person, oriented to place, oriented to time, oriented to situation, CN II-XII grossly intact. ABSENT: motor sensory deficit Psychiatric exam: PRESENT: appropriate affect, normal mood. ABSENT: homicidal ideation, suicidal ideation Results Laboratory Results: 09/06/19 18:49 09/07/19 05:50 09/06/19 09/06/19 09/06/19 18:49 18:49 18:49 WBC 9.7 RBC 4.37 Hgb 12.6 Hct 34.9 L MCV 80 MCH 28.8 MCHC 36.1 H RDW 13.1 Plt Count 310 Seg Neutrophils % 70.1 Sodium 132.3 L Potassium 2.4 L* Chloride 87 L Carbon Dioxide 33 H Anion Gap 12 BUN 8 Creatinine 0.79 Est GFR ( Amer) > 60 Glucose 147 H Calcium 9.2 Magnesium 2.0 Total Bilirubin 0.5 AST 38 H Alkaline Phosphatase 141 H Total Protein 7.8 Albumin 4.0 Lipase 15.6 L Urine Color Urine Appearance Urine pH Ur Specific [place] Urine Protein Urine Glucose (UA) Urine Ketones Urine Blood Urine RBC (Auto) 09/06/19 09/07/19 20:30 05:50 WBC RBC Hgb Hct MCV MCH MCHC RDW Plt Count Seg Neutrophils % Sodium 128.9 L Potassium 2.7 L* Chloride 95 L Carbon Dioxide 29 Anion Gap 5 BUN 4 L Creatinine 0.49 L Est GFR ( Amer) > 60 Glucose 92 Calcium 7.5 L Magnesium Total Bilirubin 0.4 AST 22 Alkaline Phosphatase 90 Total Protein 5.3 L Albumin 2.6 L Lipase Urine Color NABOR Urine Appearance SLIGHTLY-CLOUDY Urine pH 7.0 Ur Specific [place] 1.019 Urine Protein 30 H Urine Glucose (UA) 50 H Urine Ketones NEGATIVE Urine Blood NEGATIVE Urine RBC (Auto) 1 Assessment and Plan - Diagnosis (1) Hyperemesis complicating , antepartum Is this a current diagnosis for this admission?: Yes (2) Hypokalemia due to excessive gastrointestinal loss of potassium Is this a current diagnosis for this admission?: Yes (3) Intractable vomiting Qualifiers: Nausea presence: with nausea Is this a current diagnosis for this admission?: Yes (4) Prolonged QT interval Is this a current diagnosis for this admission?: Yes - Plan Summary Summary: I have ordered 2K riders for today IV, repeat EKG this morning to compare to last night's, check labs today at 1500 hrs.. I would like to get her potassium up to the high 3's or low 4's, prior to discharge. I would like to also repeat the EKG this afternoon after her potassium is therapeutic. Will make recommendations concerning discharge once patient has stabilized. I did tell the patient that this may be late this afternoon or tomorrow morning. She had no problem with staying another night if necessary. Patient should see cardiology following discharge from the hospital, since they were consulted on her last hospital admission. Would probably be good information to have going forward. Patient is currently medically stable - Time Time Spent with patient: 35 or more minutes
[2019-09-07] MEDS ORDERED: NORMAL SALINE 1000 ML 1,000 ML with THIAMINE HCL 100 MG, MVI, ADULT NO.1 WITH VIT K 10 ... IV ONE ×4 (10:30)
[2019-09-07] MEDS ORDERED: POTASSI CL 20 MEQ/50 ML RIDER 20 MEQ/50 ML RTUPB IV SCH ×2 (10:30→16:30)
[2019-09-07] MEDS ORDERED: DEXAMETHASONE SOD PHOSPHATE INJ 4 MG/1 ML VIAL ONE (10:40)
[2019-09-07] MEDS ORDERED: POTASSIUM CHLORIDE 20 MEQ/50 ML RTU IV ONE (11:00)
[2019-09-07 11:58] LABS: FREE T3 4.02 pg/mL (2.77-5.27); FREE T4 (FREE THYROXINE) 1.27 ng/dL (0.78-2.19)
[2019-09-07 15:41] LABS: CALCIUM 8.2 mg/dL (8.4-10.2); CARBON DIOXIDE 26 mmol/L (22-30); CHLORIDE 103 mmol/L (98-107); GLUCOSE 135 mg/dL (75-110); POTASSIUM 3.1 mmol/L (3.6-5.0)
[2019-09-07 15:44] LABS: BLOOD UREA NITROGEN < 2 mg/dL (7-20)
--- NOTE | 2019-09-07 15:48 | PDOC PROGRESS REPORT ---
Subjective Progress Note for:: 09/07/19 Subjective:: 29 year old female at 25 wks EGA for nausea/vomiting. SHe has hx of hyperemesis this with 15 lb weight loss. Was seen in the ED on 08/10/19 and given PO potassium to take d/t hypokalemia ( K at 2.5 ) at that time. She was also admitted with hypokalemia 2-3 wks ago and got IV and PO potassium at that time. She has been on Phenergan supp PV and zofran ODT but ran out of her Phenergan [place]. Now vomiting again with feeling twitching in arms/legs on ad mission. Feels weak an dizzy with ambulation but improved since yesterday. Good FM Reason For Visit: N/V OF ,HYPOKALEMIA Physical Exam - Physical Exam Vital Signs: Temp Pulse Resp BP Pulse Ox 98.2 F 85 16 119/62 100 09/07/19 14:42 09/07/19 14:42 09/07/19 14:42 09/07/19 14:42 09/07/19 14:42 Intake & Output 09/06/19 09/07/19 09/08/19 06:59 06:59 06:59 Intake Total 3050 Balance 3050 Weight 53.2 kg General appearance: PRESENT: no acute distress, well-developed, well-nourished Head exam: PRESENT: atraumatic, normocephalic Respiratory exam: PRESENT: clear to auscultation dion, symmetrical, unlabored Cardiovascular exam: PRESENT: RRR. ABSENT: diastolic murmur, rubs, systolic murmur GI/Abdominal exam: PRESENT: normal bowel sounds, soft. ABSENT: distended, guarding, mass, organolmegaly, rebound, tenderness Rectal exam: PRESENT: deferred Extremities exam: PRESENT: full ROM. ABSENT: calf tenderness, clubbing, pedal edema Neurological exam: PRESENT: alert, awake, oriented to person, oriented to place, oriented to time, oriented to situation, CN II-XII grossly intact. ABSENT: motor sensory deficit Psychiatric exam: PRESENT: agitated Result Laboratory Results: 09/06/19 18:49 09/06/19 09/06/19 09/06/19 18:49 18:49 18:49 WBC 9.7 RBC 4.37 Hgb 12.6 Hct 34.9 L MCV 80 MCH 28.8 MCHC 36.1 H RDW 13.1 Plt Count 310 Seg Neutrophils % 70.1 Sodium 132.3 L Potassium 2.4 L* Chloride 87 L Carbon Dioxide 33 H Anion Gap 12 BUN 8 Creatinine 0.79 Est GFR ( Amer) > 60 Glucose 147 H Calcium 9.2 Magnesium 2.0 Total Bilirubin 0.5 AST 38 H Alkaline Phosphatase 141 H Total Protein 7.8 Albumin 4.0 Lipase 15.6 L TSH Free T4 Free T3 pg/mL Urine Color Urine Appearance Urine pH Ur Specific [place] Urine Protein Urine Glucose (UA) Urine Ketones Urine Blood Urine RBC (Auto) 09/06/19 09/07/19 09/07/19 20:30 05:50 05:50 WBC RBC Hgb Hct MCV MCH MCHC RDW Plt Count Seg Neutrophils % Sodium 128.9 L Potassium 2.7 L* Chloride 95 L Carbon Dioxide 29 Anion Gap 5 BUN 4 L Creatinine 0.49 L Est GFR ( Amer) > 60 Glucose 92 Calcium 7.5 L Magnesium Total Bilirubin 0.4 AST 22 Alkaline Phosphatase 90 Total Protein 5.3 L Albumin 2.6 L Lipase TSH 0.24 L Free T4 Free T3 pg/mL Urine Color NABOR Urine Appearance SLIGHTLY-CLOUDY Urine pH 7.0 Ur Specific [place] 1.019 Urine Protein 30 H Urine Glucose (UA) 50 H Urine Ketones NEGATIVE Urine Blood NEGATIVE Urine RBC (Auto) 1 09/07/19 05:50 WBC RBC Hgb Hct MCV MCH MCHC RDW Plt Count Seg Neutrophils % Sodium Potassium Chloride Carbon Dioxide Anion Gap BUN Creatinine Est GFR ( Amer) Glucose Calcium Magnesium Total Bilirubin AST Alkaline Phosphatase Total Protein Albumin Lipase TSH Free T4 1.27 Free T3 pg/mL 4.02 Urine Color Urine Appearance Urine pH Ur Specific [place] Urine Protein Urine Glucose (UA) Urine Ketones Urine Blood Urine RBC (Auto) Status: Imported from PACS Assessment & Plan - Diagnosis (1) Intractable vomiting Qualifiers: Nausea presence: with nausea Is this a current diagnosis for this admission?: Yes Plan: 29 yo at 25 wks EGA with hypokalemia-symptomatic, hyperemesis of , intractable vomiting, anemia -Admit to telemetry for observation and treatment of symptomatic hypokalemia and inability to tolerate PO -VS Q 4 hrs Advance diet as tolerated and IVF: D5 NS with 20 KCL at 150cc/hr -Out of bed as tolerated - heart tones daily -Potassium today 2.4, mag level normal - repeat labs daily. Hospitalist to a ssist with Potassium -Zofran 4 mg IV Q 6 hrs, scopolamine patch now x1 Doing well. nausea improved. (2) Hyperemesis complicating , antepartum Is this a current diagnosis for this admission?: Yes Plan: Banana Bag and Decadron ordered. (3) Anemia affecting fourth Is this a current diagnosis for this admission?: Yes Plan: mild - iron po as needed (4) Hypokalemia due to excessive gastrointestinal loss of potassium Is this a current diagnosis for this admission?: Yes Plan: hospitalist consulted to help with potassium - Time Time Spent with patient: 15-24 minutes Smoking Cessation Education: 3 to 10 minutes Medications reviewed and adjusted accordingly: Yes Anticipated discharge: Home Within: within 48 hours - Inpatient Certification Based on my medical assessment, after consideration of the patient's comorbidities, presenting symptoms, or acuity I expect that the services needed warrant INPATIENT care.: Yes I certify that my determination is in accordance with my understanding of Medicare's requirements for reasonable and necessary INPATIENT services [42 CFR 412.3e].: Yes Medical Necessity: Need Close Monitoring Due to Risk of Patient Decompensation, Need For IV Fluids
[2019-09-07 16:05] LABS: ANION GAP 4 (5-19)
--- NOTE | 2019-09-07 17:36 | Progress Note ---
Provider Note Provider Note: Following 1K rider patient's potassium is gone from 2.7 up to 3.1. I have ordered 1 more K rider and repeat serum level in the morning. I suspect this will come up to about 3.5 or 3.6 I do not think patient will need to be sent home on any p.o. potassium as it may cause further nausea and/or vomiting. As long as she does not have continued persistent vomiting she should do well. I think that she will need a repeat Chem-7 next week on Wednesday or Wednesday, for repeat potassium level. Also think she needs to do a Internet search for foods that are rich in potassium as a dietary supplement. Will sign off unless you need us further.
[2019-09-08] MEDS: POTASSI CL 20 MEQ/D5-1/2NS 1L 1000 ML IV PRN (01:35)
[2019-09-08 07:18] LABS: CALCIUM 7.9 mg/dL (8.4-10.2); CHLORIDE 107 mmol/L (98-107); GLUCOSE 89 mg/dL (75-110)
[2019-09-08 07:19] LABS: BLOOD UREA NITROGEN < 2 mg/dL (7-20)
[2019-09-08 07:23] LABS: CARBON DIOXIDE 26 mmol/L (22-30)
[2019-09-08 07:28] LABS: ANION GAP 2 (5-19)
--- NOTE | 2019-09-08 07:48 | Progress Note ---
Provider Note Provider Note: 09/08/2019 I am surprised that her potassium this morning is 3.0 yesterday was 3.1. Patient has had a total of 3K riders which is 60 mEq. She was unable to take p.o. potassium yesterday morning as it made her nauseated. I have ordered 40 more equivalents today, 2K riders, with a repeat chemistry 7 at 1300 hrs. each K rider takes 2 hours to run. Patient has had no further vomiting. She has eaten breakfast with no nausea or vomiting, if the potassium level has come up to the mid threes this afternoon she can be discharged today. In light of her slow response I would recommend the patient be discharged home with a prescription for potassium 10 mEq twice daily for 7 days. As previously noted patient, will need a repeat Chem-7 on Wednesday by obstetrics. I have discussed this plan with the nurse in charge of the patient. If there are any further problems she is to call me today. Patient is completely asymptomatic with no muscle cramping, twitching, chest pain.
--- NOTE | 2019-09-08 08:55 | PDOC PROGRESS REPORT ---
Subjective Progress Note for:: 09/08/19 Subjective:: pt states she feels better and wants to try to eat Reason For Visit: N/V OF ,HYPOKALEMIA Physical Exam - Physical Exam Vital Signs: Temp Pulse Resp BP Pulse Ox 97.5 F 72 18 95/63 L 100 09/08/19 07:35 09/08/19 07:35 09/08/19 07:35 09/08/19 07:35 09/08/19 07:35 Intake & Output 09/07/19 09/08/19 09/09/19 06:59 06:59 06:59 Intake Total 3050 1410 Balance 3050 1410 Weight 53.2 kg General appearance: PRESENT: no acute distress Respiratory exam: PRESENT: clear to auscultation dion Cardiovascular exam: PRESENT: RRR Result Laboratory Results: 09/06/19 18:49 09/08/19 06:28 09/07/19 09/07/19 09/07/19 05:50 05:50 14:50 Sodium 133.0 L Potassium 3.1 L Chloride 103 Carbon Dioxide 26 Anion Gap 4 L BUN < 2 L Creatinine 0.45 L Est GFR ( Amer) > 60 Glucose 135 H Calcium 8.2 L TSH 0.24 L Free T4 1.27 Free T3 pg/mL 4.02 09/08/19 06:28 Sodium 134.7 L Potassium 3.0 L* Chloride 107 Carbon Dioxide 26 Anion Gap 2 L BUN < 2 L Creatinine 0.39 L Est GFR ( Amer) > 60 Glucose 89 Calcium 7.9 L TSH Free T4 Free T3 pg/mL Assessment & Plan - Diagnosis (1) Hyperemesis complicating , antepartum Is this a current diagnosis for this admission?: Yes (2) Hypokalemia due to excessive gastrointestinal loss of potassium Is this a current diagnosis for this admission?: Yes (3) Intractable vomiting Qualifiers: Nausea presence: with nausea Is this a current diagnosis for this admission?: Yes (4) Anemia affecting fourth Is this a current diagnosis for this admission?: Yes (5) Prolonged QT interval Is this a current diagnosis for this admission?: Yes - Time Time Spent with patient: Less than 15 minutes Medications reviewed and adjusted accordingly: Yes Anticipated discharge: Home Within: within 48 hours - Plan Summary Plan Summary: continue to follow hospitalist recomendation for potasium therapy and advance diet as tolerated.
[2019-09-08] MEDS: POTASSI CL 20 MEQ/50 ML RIDER 20 MEQ/50 ML RTUPB IV SCH ×2 (08:57→11:38)
[2019-09-08] MEDS: DOCUSATE SODIUM 100 MG CAPSULE PO SCH (10:02)
[2019-09-08] MEDS: FAMOTIDINE INJ/PF 20 MG/2 ML SDV IV SCH (11:30)
[2019-09-08] MEDS: POTASSIUM CHLORIDE 20 MEQ PACKET PO SCH (12:35)
[2019-09-08 13:52] LABS: CALCIUM 8.4 mg/dL (8.4-10.2); CARBON DIOXIDE 24 mmol/L (22-30); CHLORIDE 109 mmol/L (98-107); POTASSIUM 3.3 mmol/L (3.6-5.0)
[2019-09-08 13:55] LABS: BLOOD UREA NITROGEN < 2 mg/dL (7-20)
[2019-09-08 14:01] LABS: ANION GAP 4 (5-19)
[2019-09-08 14:03] LABS: GLUCOSE 69 mg/dL (75-110)
--- NOTE | 2019-09-08 15:18 | PDOC DISCHARGE SUMMARY ---
Impression - Admit/DC Date/PCP Admission Date/Primary Care Provider: 09/06/19 20:[facility] Discharge Date: 09/08/19 - Assessment Summary: I have ordered 1K riders for today IV, repeat EKG this morning to compare to last night's, check labs today at 1500 hrs.. I would like to get her potassium up to the high 3's , prior to discharge. I would like to also repeat the EKG this afternoon after her potassium is therapeutic. Will make recommendations concerning discharge once patient has stabilized. I did tell the patient that this may be late this afternoon or tomorrow morning. She had no problem with staying another night if necessary. Patient should see cardiology following discharge from the hospital, since they were consulted on her last hospital admission. Would probably be good information to have going forward. Patient is currently medically stable - Additional Information Resuscitation Status: Full Code Discharge Diet: As Tolerated Referrals: [facility] [Primary Care [facility]] - Follow up as needed Prescriptions: Potassium Chloride 10 meq PO BID 15 Days #30 tablet.er Home Medications: Docusate Sodium [Colace 100 mg Capsule] 100 mg PO BID 30 Days #60 capsule 08/21/19 Ondansetron HCl [Zofran] 4 mg PO Q6HP PRN 09/06/19 Promethazine HCl [Phenergan 25 mg Supp.rect] 1 supp [place] Q6HP PRN 09/06/19 Potassium Chloride 10 meq PO BID 15 Days #30 tablet.er 09/08/19 HPI Gestational Age: 25 Procedures: Ultrasound Hospital Course Hospital Course: improving Results Laboratory Results: WBC 9.7 10^3/uL (4.0-10.5) 09/06/19 18:49 RBC 4.37 10^6/uL (3.72-5.28) 09/06/19 18:49 Hgb 12.6 g/dL (12.0-15.5) 09/06/19 18:49 Hct 34.9 % (36.0-47.0) L 09/06/19 18:49 MCV 80 fl (80-97) 09/06/19 18:49 MCH 28.8 pg (27.0-33.4) 09/06/19 18:49 MCHC 36.1 g/dL (32.0-36.0) H 09/06/19 18:49 RDW 13.1 % (11.5-14.0) 09/06/19 18:49 Plt Count 310 10^3/uL (150-450) 09/06/19 18:49 Lymph % (Auto) 21.8 % (13-45) 09/06/19 18:49 Bland % (Auto) 5.8 % (3-13) 09/06/19 18:49 Eos % (Auto) 1.7 % (0-6) 09/06/19 18:49 Baso % (Auto) 0.6 % (0-2) 09/06/19 18:49 Absolute Neuts (auto) 6.8 10^3/uL (1.7-8.2) 09/06/19 18:49 Absolute Lymphs (auto) 2.1 10^3/uL (0.5-4.7) 09/06/19 18:49 Absolute Monos (auto) 0.6 10^3/uL (0.1-1.4) 09/06/19 18:49 Absolute Eos (auto) 0.2 10^3/uL (0.0-0.6) 09/06/19 18:49 Absolute Basos (auto) 0.1 10^3/uL (0.0-0.2) 09/06/19 18:49 Seg Neutrophils % 70.1 % (42-78) 09/06/19 18:49 Sodium 136.8 mmol/L (137-145) L 09/08/19 13:09 Potassium 3.3 mmol/L (3.6-5.0) L 09/08/19 13:09 Chloride 109 mmol/L (98-107) H 09/08/19 13:09 Carbon Dioxide 24 mmol/L (22-30) 09/08/19 13:09 Anion Gap 4 (5-19) L 09/08/19 13:09 BUN < 2 mg/dL (7-20) L 09/08/19 13:09 Creatinine 0.43 mg/dL (0.52-1.25) L 09/08/19 13:09 Est GFR ( Amer) > 60 (>60) 09/08/19 13:09 Est GFR (MDRD) Non-Af > 60 (>60) 09/08/19 13:09 Glucose 69 mg/dL (75-110) L 09/08/19 13:09 POC Glucose 150 mg/dL (70-110) H 09/06/19 18:50 Hemoglobin A1c % 4.8 % (4.7-6.0) 09/07/19 05:50 Calcium 8.4 mg/dL (8.4-10.2) 09/08/19 13:09 Magnesium 2.0 mg/dL (1.6-2.3) 09/06/19 18:49 Total Bilirubin 0.4 mg/dL (0.2-1.3) 09/07/19 05:50 Direct Bilirubin 0.2 mg/dL (0.0-0.4) 09/07/19 05:50 Neonat Total Bilirubin Not Reportable 09/07/19 05:50 Neonat Direct Bilirubin Not Reportable 09/07/19 05:50 Neonat Indirect Bili Not Reportable 09/07/19 05:50 AST 22 U/L (14-36) 09/07/19 05:50 ALT 13 U/L (<35) 09/07/19 05:50 Alkaline Phosphatase 90 U/L (38-126) 09/07/19 05:50 Total Protein 5.3 g/dL (6.3-8.2) L 09/07/19 05:50 Albumin 2.6 g/dL (3.5-5.0) L 09/07/19 05:50 Lipase 15.6 U/L (23-300) L 09/06/19 18:49 TSH 0.24 uIU/mL (0.47-4.68) L 09/07/19 05:50 Free T4 1.27 ng/dL (0.78-2.19) 09/07/19 05:50 Free T3 pg/mL 4.02 pg/mL (2.77-5.27) 09/07/19 05:50 Urine Color NABOR 09/06/19 20:30 Urine Appearance SLIGHTLY-CLOUDY 09/06/19 20:30 Urine pH 7.0 (5.0-9.0) 09/06/19 20:30 Ur Specific [place] 1.019 09/06/19 20:30 Urine Protein 30 mg/dL (NEGATIVE) H 09/06/19 20:30 Urine Glucose (UA) 50 mg/dL (NEGATIVE) H 09/06/19 20:30 Urine Ketones NEGATIVE mg/dL (NEGATIVE) 09/06/19 20:30 Urine Blood NEGATIVE (NEGATIVE) 09/06/19 20:30 Urine Nitrite (Reflex) NEGATIVE (NEGATIVE) 09/06/19 20:30 Urine Bilirubin SMALL (NEGATIVE) H 09/06/19 20:30 Urine Urobilinogen 4.0 mg/dL (<2.0) H 09/06/19 20:30 Leukocyte Esterase Rfl NEGATIVE (NEGATIVE) 09/06/19 20:30 Urine RBC (Auto) 1 /HPF 09/06/19 20:30 U Hyaline Cast (Auto) 50 /LPF 09/06/19 20:30 Urine Bacteria (Auto) 1+ /HPF 09/06/19 20:30 Urine WBC (Reflex) 6 /HPF 09/06/19 20:30 Squamous Epi Cells Auto 5 /HPF 09/06/19 20:30 Urine Mucus (Auto) MANY /LPF 09/06/19 20:30 Urine Ascorbic Acid NEGATIVE (NEGATIVE) 09/06/19 20:30 Plan Health Concerns: nausea and vomiting Plan of Treatment: home per dr juan, eat q 2 hours Goals: no nausea and vomiting, able to eat and drink, kick counts Time Spent: Less than 30 Minutes
[2019-09-08 15:50] VITALS: BP 107/68
--- NOTE | 2019-09-08 16:52 | EKG REPORT ---
SEVERITY:- BORDERLINE ECG - SINUS RHYTHM BORDERLINE PROLONGED QT INTERVAL : Confirmed by: Karen Gaytan 08-Sep-2019 16:51:49
== END 2019-09-08 17:00 | disposition home or self-care (01) | DRG 833 ==
LOC: ER 18:27 → EH 20:45 → 2S 23:46
PROVIDERS: ADMIT Obstetrics & Gynecology; ATTEND Obstetrics & Gynecology
DX: O21.1 Hyperemesis gravidarum with metabolic disturbance (principal); O34.219 Maternal care for unspecified type scar from previous cesarean delivery; O99.012 Anemia complicating pregnancy, second trimester; D64.9 Anemia, unspecified; O99.89 Other specified diseases and conditions complicating pregnancy, childbirth and the puerperium; R94.31 Abnormal electrocardiogram [ECG] [EKG]; Z3A.27 27 weeks gestation of pregnancy; Z83.3 Family history of diabetes mellitus
CPT/HCPCS: 36415; 80048; 80053; 81001; 82962; 83036; 83690; 83735; 84439; 84443; 84481; 85025; 93005; 93010; 96361; 96374; 99284; J1100; J2550; J3411; J3480; J3490; J7030; J7121; S0028

== ENCOUNTER 2019-10-13 22:07 | Outpatient (CLI) | payer OTHER ==
[2019-10-13 23:37] LABS: APPEARANCE,URINE SLIGHTLY-CLOUDY; BILIRUBIN,URINE SMALL (NEGATIVE); COLOR,URINE AMBER; GLUCOSE, URINE NEGATIVE (NEGATIVE); KETONES,URINE NEGATIVE (NEGATIVE); LEUKOCYTE ESTERASE,URINE NEGATIVE (NEGATIVE); NITRITE,URINE NEGATIVE (NEGATIVE); PROTEIN,URINE 30 mg/dL (NEGATIVE)
[2019-10-13 23:41] LABS: URINE AMPHETAMINES SCREEN NEGATIVE; URINE BARBITURATES SCREEN NEGATIVE; URINE BENZODIAZEPINES SCREEN NEGATIVE; URINE COCAINE SCREEN NEGATIVE; URINE MARIJUANA (THC) SCREEN NEGATIVE; URINE METHADONE SCREEN NEGATIVE; URINE PHENCYCLIDINE SCREEN NEGATIVE
[2019-10-13] MEDS ORDERED: HYDROXYZINE PAMOATE 50 MG CAPSULE PO ONE (23:53)
[2019-10-13] MEDS ORDERED: HYDROXYZINE PAMOATE 50 MG CAPSULE ONE (23:57)
[2019-10-14] MEDS ORDERED: DEXTROSE 5%-LACTATED RINGERS 1,000 ML IV PRN (00:10)
== END 2019-10-14 00:50 | disposition home or self-care (01) ==
LOC: LC 22:07
PROVIDERS: ATTEND Obstetrics & Gynecology
DX: O47.03 False labor before 37 completed weeks of gestation, third trimester (principal); Z3A.30 30 weeks gestation of pregnancy
CPT/HCPCS: 80307; 81001

== ENCOUNTER 2019-10-15 11:13 | Outpatient (CLI) | payer OTHER ==
[2019-10-15 11:56] LABS: AMORPHOUS SEDIMENT,URINE TRACE /HPF; APPEARANCE,URINE CLOUDY; BILIRUBIN,URINE NEGATIVE (NEGATIVE); COLOR,URINE AMBER; GLUCOSE, URINE NEGATIVE (NEGATIVE); KETONES,URINE 20 mg/dL (NEGATIVE); LEUKOCYTE ESTERASE,URINE NEGATIVE (NEGATIVE); NITRITE,URINE NEGATIVE (NEGATIVE); PROTEIN,URINE 30 mg/dL (NEGATIVE); URINE SPECIFIC GRAVITY 1.024
[2019-10-15 12:14] LABS: URINE CREATININE 224.6 mg/dL (16-327); URINE PROTEIN 7.4 mg/dL (<12)
[2019-10-15 12:18] LABS: ABSOLUTE EOSINOPHILS # (AUTO) 0.1 10^3/uL (0.0-0.6); ABSOLUTE LYMPHOCYTES (AUTO) 1.6 10^3/uL (0.5-4.7); ABSOLUTE MONOCYTES (AUTO) 0.4 10^3/uL (0.1-1.4); ABSOLUTE NEUT (AUTO) 4.2 10^3/uL (1.7-8.2); BASOPHILS % (AUTO) 0.5 % (0-2); EOSINOPHILS % (AUTO) 1.5 % (0-6); HEMATOCRIT 26.1 % (36.0-47.0); HEMOGLOBIN 9.4 g/dL (12.0-15.5); LYMPHOCYTES % (AUTO) 25.8 % (13-45); MEAN CORPUSCULAR HEMOGLOBIN 29.4 pg (27.0-33.4); MEAN CORPUSCULAR VOLUME 82 fl (80-97); MONOCYTES % (AUTO) 5.9 % (3-13); PLATELET COUNT 201 10^3/uL (150-450); RED BLOOD COUNT 3.19 10^6/uL (3.72-5.28); RED CELL DISTRIBUTION WIDTH 13.4 % (11.5-14.0); SEGMENTED NEUTROPHILS % (AUTO) 66.3 % (42-78); TOTAL CELLS COUNTED % (AUTO) 100 %; WHITE BLOOD COUNT 6.3 10^3/uL (4.0-10.5)
[2019-10-15] MEDS ORDERED: RINGERS SOLUTION,LACTATED 1,000 ML IV PRN (12:20)
[2019-10-15 12:25] LABS: URINE AMPHETAMINES SCREEN NEGATIVE; URINE BARBITURATES SCREEN NEGATIVE; URINE BENZODIAZEPINES SCREEN NEGATIVE; URINE COCAINE SCREEN NEGATIVE; URINE MARIJUANA (THC) SCREEN NEGATIVE; URINE METHADONE SCREEN NEGATIVE; URINE PHENCYCLIDINE SCREEN NEGATIVE
[2019-10-15 12:33] LABS: ALBUMIN 2.9 g/dL (3.5-5.0); ALKALINE PHOSPHATASE 123 U/L (38-126); ANION GAP 5 (5-19); ASPARTATE AMINO TRANSFERASE 26 U/L (14-36); BILIRUBIN,TOTAL 0.4 mg/dL (0.2-1.3); BLOOD UREA NITROGEN 4 mg/dL (7-20); CALCIUM 8.1 mg/dL (8.4-10.2); CARBON DIOXIDE 21 mmol/L (22-30); CHLORIDE 108 mmol/L (98-107); GLUCOSE 71 mg/dL (75-110); TOTAL PROTEIN 5.9 g/dL (6.3-8.2); URIC ACID 4.9 mg/dL (2.5-6.2)
[2019-10-15] MEDS ORDERED: PROCHLORPERAZINE MALEATE 10 MG TABLET PO ONE (12:45)
[2019-10-15] MEDS ORDERED: ACETAMINOPHEN 325 MG TABLET PO ONE (12:45)
[2019-10-15] MEDS ORDERED: PROMETHAZINE HCL INJ 25 MG/1 ML VIAL ONE (12:52)
[2019-10-15] MEDS ORDERED: POTASSIUM CHLORIDE 10 MEQ TABLET.ER PO ONE (13:13)
[2019-10-15] MEDS ORDERED: PROMETHAZINE HCL INJ 25 MG/1 ML VIAL IV ONE (13:25)
[2019-10-15] MEDS ORDERED: PROCHLORPERAZINE MALEATE 10 MG TABLET ONE (13:32)
[2019-10-15] MEDS ORDERED: ACETAMINOPHEN 325 MG TABLET ONE (13:32)
--- NOTE | 2019-10-15 13:50 | RADIOLOGY REPORT (SQ) ---
EXAM DESCRIPTION: CHEST SINGLE VIEW IMAGES COMPLETED DATE/TIME: 10/15/2019 1:34 pm REASON FOR STUDY: sob, chest pain COMPARISON: None. EXAM PARAMETERS: NUMBER OF VIEWS: One view. TECHNIQUE: Single frontal radiographic view of the chest acquired. RADIATION DOSE: NA LIMITATIONS: None. FINDINGS: LUNGS AND PLEURA: No opacities, masses or pneumothorax. No pleural effusion. MEDIASTINUM AND HILAR STRUCTURES: No masses. Contour normal. HEART AND VASCULAR STRUCTURES: Heart normal in size. Normal vasculature. BONES: No acute findings. HARDWARE: None in the chest. OTHER: No other significant finding. IMPRESSION: NO ACUTE RADIOGRAPHIC FINDING IN THE CHEST. TECHNICAL DOCUMENTATION: JOB ID: [id number] 2010 [employer]- All Rights Reserved Reading location - IP/workstation name: [email or web address]
--- NOTE | 2019-10-15 15:05 | EKG REPORT ---
SEVERITY:- BORDERLINE ECG - SINUS RHYTHM BORDERLINE T ABNORMALITIES, DIFFUSE LEADS : Confirmed by: Adriel Murguia MD 15-Oct-2019 15:05:11
== END 2019-10-15 14:59 | disposition home or self-care (01) ==
LOC: LC 11:13
PROVIDERS: ATTEND Obstetrics & Gynecology
DX: O47.03 False labor before 37 completed weeks of gestation, third trimester (principal); O26.893 Other specified pregnancy related conditions, third trimester; R06.02 Shortness of breath; R07.9 Chest pain, unspecified; Z3A.30 30 weeks gestation of pregnancy
CPT/HCPCS: 59899; 83615; 84156; 84550; 82570; 85025; 80053; 81001; 80307; 71045; 93005; 93010; S0183; J2550; 94760

== ENCOUNTER → 2019-10-16 | Outpatient (CLI) | payer OTHER ==
--- NOTE | 2019-10-16 17:18 | Progress Note ---
Provider Note Provider Note: Pt is 31 wk IUP, seen at [facility] this . She has a hx of GHTN but is likely CHTN based on BP 140/91 at 8wk visit. She presented to [facility] today for routine check and had Bp 128/94, 139/96 and c/o headache. She was seen by Dr. Antunez and told to come to L&D for evaluation of BP. After she left the clinic, Dr. Sean zamarripa realized and told me she was seen in the ED last night, which actually was a visit to L&D where Pre-Eclampsia labs were drawn. All of her labs were normal. When she arrived, she c/o Shortness of breath and I said she needed to be evaluated in ER for that. She did not want to go to ER for evaluation d/t risk of exposure to COVID. I went downstairs to speak with her, I introduced myself and told her that the confusion began d/t Dr. Antunez was not aware that she had already had a Pre-E workup last night. I told her that we would not be drawing labs or doing anything different today than we already did last night. I told her that it was her decision but that she was sent for an evaluation that had already been done and that we would not need to redo it today. She stated that she had complaints of dizziness, pain in her chest and a headache. She again does not want to go to the ER, and stated that she did not want to come to L&D if we werent going to do anything different. I did not tell her that she could not be seen, and stressed that it was her decision. Discussed with Lawanda Lugo. Conversation witnessed by Elvia Torres.
== END ==
LOC: LC 16:11
PROVIDERS: ATTEND Student in an Organized Health Care Education/Training Program
DX: O13.3 Gestational [pregnancy-induced] hypertension without significant proteinuria, third trimester (principal); R06.02 Shortness of breath; R07.89 Other chest pain; R42 Dizziness and giddiness; R51 Headache; Z3A.31 31 weeks gestation of pregnancy

== ENCOUNTER 2019-10-23 14:07 | Outpatient (CLI) | payer OTHER ==
[2019-10-23 15:09] LABS: APPEARANCE,URINE CLOUDY; BILIRUBIN,URINE NEGATIVE (NEGATIVE); CALCIUM OXALATE CRYSTALS,URINE FEW /HPF; COLOR,URINE AMBER; GLUCOSE, URINE NEGATIVE (NEGATIVE); KETONES,URINE NEGATIVE (NEGATIVE); LEUKOCYTE ESTERASE,URINE TRACE (NEGATIVE); NITRITE,URINE NEGATIVE (NEGATIVE); PROTEIN,URINE 30 mg/dL (NEGATIVE); URINE SPECIFIC GRAVITY 1.025
[2019-10-23 15:19] LABS: URINE AMPHETAMINES SCREEN NEGATIVE; URINE BARBITURATES SCREEN NEGATIVE; URINE BENZODIAZEPINES SCREEN NEGATIVE; URINE COCAINE SCREEN NEGATIVE; URINE MARIJUANA (THC) SCREEN NEGATIVE; URINE METHADONE SCREEN NEGATIVE; URINE PHENCYCLIDINE SCREEN NEGATIVE
--- NOTE | 2019-10-23 17:34 | RADIOLOGY REPORT (SQ) ---
EXAM DESCRIPTION: U/S OB LIMITED IMAGES COMPLETED DATE/TIME: 10/23/2019 5:18 pm REASON FOR STUDY: pain COMPARISON: None. TECHNIQUE: Limited transvaginal and transabdominal grayscale ultrasound for evaluation of specific r equested obstetrical parameters. LIMITATIONS: None. FINDINGS: CERVICAL LENGTH: 3.2 cm(transvaginal measurement). Closed. JOSE LUIS: LVP - 10.0 cm x 14.1 cm. FHR: 130 beats per minute. PRESENTATION: Breech. PLACENTA: Anterior. ANATOMY: Not assessed OTHER: No other significant findings. IMPRESSION: LIMITED OBSTETRICAL ULTRASOUND WITH MEASURED PARAMETERS DELINEATED ABOVE. Trimester of : Third trimester - 28 weeks to delivery. TECHNICAL DOCUMENTATION: JOB ID: [id number] 2010 [employer]- All Rights Reserved Reading location - IP/workstation name: [email or web address]
== END 2019-10-23 17:59 | disposition home or self-care (01) ==
LOC: LC 14:07
PROVIDERS: ATTEND Obstetrics & Gynecology
DX: O47.03 False labor before 37 completed weeks of gestation, third trimester (principal); O99.283 Endocrine, nutritional and metabolic diseases complicating pregnancy, third trimester; E86.0 Dehydration; Z3A.31 31 weeks gestation of pregnancy
CPT/HCPCS: 76815; 80307; 81001

== ENCOUNTER 2019-11-04 16:20 | Emergency (ER) | payer OTHER ==
--- NOTE | 2019-11-04 16:23 | ER Document Report ---
ED Medical Screen (RME) - General Chief Complaint: Abscess Stated Complaint: ABSCESS/BUTTOCK Time Seen by Provider: 11/04/19 16:22 Primary Care Provider: RON CASH MD [Primary Care Provider] - Follow up as needed Mode of Arrival: Ambulatory Information source: Patient Notes: 29-year-old female presents to ED for abscesses to the private area, 2 under the right arm and 1 under the left arm. She states she had a abscess I indeed under the right arm last year. States her other medical history is high blood pressure and she had a in September. As menstrual period was October 19. She does not smoke drink or drugs. She refused any Tylenol or Motrin while in the triage area she said she just wants these things cut open and drained on her go home. I have greeted and performed a rapid initial assessment of this patient. A comprehensive ED assessment and evaluation of the patient, analysis of test results and completion of medical decision making process will be conducted by an additional ED providers. TRAVEL OUTSIDE OF THE [place] IN LAST 30 DAYS: No - Related Data Allergies/Adverse Reactions: cat dander Allergy (Verified 10/23/19 14:49) Past Medical History - Past Medical History Cardiac Medical History: Denies: Hx Congestive Heart Failure, Hx Coronary Artery Disease, Hx Hypertension Pulmonary Medical History: Denies: Hx Asthma, Hx COPD Endocrine Medical History: Denies: Hx Diabetes Mellitus Type 1, Hx Diabetes Mellitus Type 2 Psychiatric Medical History: Reports: Hx Depression Past Surgical History: Reports: Hx Section, Hx Cholecystectomy, Hx Orthopedic Surgery - spinal fusion - Immunizations Immunizations up to date: Yes Hx Diphtheria, Pertussis, Tetanus Vaccination: Yes Doctor's Discharge - Discharge Referrals: RON CASH MD [Primary Care Provider] - Follow up as needed
[2019-11-04 16:25] VITALS: BP 132/84
--- NOTE | 2019-11-04 16:41 | ER Document Report ---
ED Medical Screen (RME) - General Chief Complaint: Abscess Stated Complaint: ABSCESS/BUTTOCK Time Seen by Provider: 11/04/19 16:22 Primary Care Provider: RON CASH MD [Primary Care Provider] - Follow up as needed Mode of Arrival: Ambulatory Information source: Patient Notes: 29-year-old female presented to ED for a left buttocks abscess very close to the rectum. She is 33 almost 34 weeks . She is alert oriented respirations regular and unlabored speaking in full sentences. She states the tenderness started about a week ago but she did not notice the abscess until yesterday. She is a patient of [facility]. She did have a spinal fusion a year and a half ago L5- S1. I have greeted and performed a rapid initial assessment of this patient. A comprehensive ED assessment and evaluation of the patient, analysis of test results and completion of medical decision making process will be conducted by an additional ED providers. TRAVEL OUTSIDE OF THE [place] IN LAST 30 DAYS: No - Related Data Allergies/Adverse Reactions: cat dander Allergy (Verified 11/04/19 16:33) Past Medical History - Social History Chew tobacco use (# tins/day): No Frequency of alcohol use: None Drug Abuse: None - Past Medical History Cardiac Medical History: Denies: Hx Congestive Heart Failure, Hx Coronary Artery Disease, Hx Hype rtension Pulmonary Medical History: Denies: Hx Asthma, Hx COPD Endocrine Medical History: Denies: Hx Diabetes Mellitus Type 1, Hx Diabetes Mellitus Type 2 Psychiatric Medical History: Reports: Hx Depression Past Surgical History: Reports: Hx Section, Hx Cholecystectomy, Hx Orthopedic Surgery - spinal fusion - Immunizations Immunizations up to date: Yes Hx Diphtheria, Pertussis, Tetanus Vaccination: Yes Physical Exam - Vital signs Vitals: Temp Pulse Resp BP Pulse Ox 98.5 F 72 16 132/84 H 100 11/04/19 16:24 11/04/19 16:24 11/04/19 16:24 11/04/19 16:24 11/04/19 16:24 Course - Vital Signs Vital signs: Temp Pulse Resp BP Pulse Ox 98.5 F 72 16 132/84 H 100 11/04/19 16:33 11/04/19 16:24 11/04/19 16:24 11/04/19 16:24 11/04/19 16:24 Doctor's Discharge - Discharge Referrals: RON CASH MD [Primary Care Provider] - Follow up as needed
--- NOTE | 2019-11-04 18:07 | ER Document Report ---
ED General - General Chief Complaint: Abscess Stated Complaint: ABSCESS/BUTTOCK Time Seen by Provider: 11/04/19 16:22 Primary Care Provider: RON CASH MD [ACTIVE PROVISIONAL STAFF] - Follow up as needed Mode of Arrival: Ambulatory Notes: 29-year-old female 33 weeks presenting today with pain near her buttocks. She reports she has a small mass on the left side of her inner buttocks. Her symptoms about a week ago but yesterday it became very painful to sit on her buttocks. She reports a history of hyper emesis, constipation and IBS. Denies any bright red blood per rectum, or dark tarry stools. Denies any fevers or chills or abdominal pain. TRAVEL OUTSIDE OF THE [place] IN LAST 30 DAYS: No - Related Data Allergies/Adverse Reactions: cat dander Allergy (Verified 11/04/19 16:33) Past Medical History - General Information source: Patient - Social History Smoking Status: Never Smoker Chew tobacco use (# tins/day): No Frequency of alcohol use: None Drug Abuse: None Family History: DM Patient has homicidal ideation: No - Past Medical History Cardiac Medical History: Denies: Hx Congestive Heart Failure, Hx Coronary Artery Disease, Hx Hypertension Pulmonary Medical History: Denies: Hx Asthma, Hx COPD Endocrine Medical History: Denies: Hx Diabetes Mellitus Type 1, Hx Diabetes Mellitus Type 2 Psychiatric Medical History: Reports: Hx Depression Past Surgical History: Reports: Hx Section, Hx Cholecystectomy, Hx Orthopedic Surgery - spinal fusion - Immunizations Immunizations up to date: Yes Hx Diphtheria, Pertussis, Tetanus Vaccination: Yes Physical Exam - Vital signs Vitals: Temp Pulse Resp BP Pulse Ox 98.5 F 72 16 132/84 H 100 11/04/19 16:24 11/04/19 16:24 11/04/19 16:24 11/04/19 16:24 11/04/19 16:24 Course - Re-evaluation Re-evalutation: Discussed case with Dr. Bell. Agrees to call surgery for their evaluation. Dr. Wong called. Discussed patient with him. He asked where patient was located. I told him room 2. 11/04/19 18:21 Dr. Covington evaluated patient. He will drain the perianal abscess. Patient was having wound dressed on reevaluation. Reports improvement in pain. Will prescribe patient augmentin. Return precautions discussed with patient to include fever, chills, worsening pain or development of new symptoms. She is in agreeance with plan. - Vital Signs Vital signs: Temp Pulse Resp BP Pulse Ox 98.5 F 72 16 132/84 H 100 11/04/19 16:33 11/04/19 16:24 11/04/19 16:24 11/04/19 16:24 11/04/19 16:24 Discharge - Discharge Clinical Impression: Perianal abscess Disposition: HOME, SELF-CARE Instructions: Abscess ([facility]), Augmentin ([facility]) Additional Instructions: Please keep area clean and dry. Recommend wound check in 24 hours. Please retur n to the emergency department for fevers chills, worsening rectal pain or development of new symptoms. Follow-up with your PCM as soon as possible. Prescriptions: Amoxicillin/Potassium Clav [Augmentin 875-125 Tablet] 1 tab PO BID 5 Days #10 tablet Referrals: RON CASH MD [ACTIVE PROVISIONAL STAFF] - Follow up as needed
[2019-11-04] MEDS ORDERED: LIDOCAINE 1% INJ-PF (10 MG/ML) 30 ML SDV ONE (18:37)
[2019-11-04] MEDS ORDERED: LIDOCAINE 1% INJ-PF (10 MG/ML) 30 ML SDV INJ ONE (18:42)
--- NOTE | 2019-11-04 18:58 | PDOC CONSULTATION ---
Consultation Consult Date: 11/04/19 Provider Consulted: SURGICAL SURGICALIST Consult reason:: Perianal abscess History of Present Illness Admission Date/PCP: [facility] History of Present Illness: TIMBO YOUNG is a 29 year old female seen in consultation at the request of the emergency room physician. Patient has a one-week history of swelling and pain on the right buttock, approximately 4 cm from the anus. She denies fevers, chills, or drainage. She has experienced similar symptoms in the same area previously. On the previous occasion she experienced swelling, and spontaneous drainage. She reports that it has never been incised/drained. Currently, she rates her pain as 6 out of 10. The pain is sharp and stabbing. It is worse with sitting and palpation. Nothing makes it better. She denies chest pain, shortness of breath, dizziness, headache, orthostasis, malaise, fatigue, abdominal pain. She is currently and in her third trimester. Past Medical History Cardiac Medical History: Denies: Congestive Heart Failure, Coronary Artery Disease, Hypertension Pulmonary Medical History: Denies: Asthma, Chronic Obstructive Pulmonary Disease (COPD) Endocrine Medical History: Denies: Diabetes Mellitus Type 1, Diabetes Mellitus Type 2 Psychiatric Medical History: Reports: Depression Past Surgical History Past Surgical History: Reports: Section, Cholecystectomy, Orthopedic Surgery - spinal fusion Social History Smoking Status: Never Smoker Electronic Cigarette use?: No Frequency of Alcohol Use: None Hx Recreational Drug Use: No Drugs: None Hx Prescription Drug Abuse: No Family History Family History: DM Parental Family History Reviewed: Yes Children Family History Reviewed: Yes Sibling(s) Family History Reviewed.: Yes Medication/Allergy Home Medications: Ondansetron HCl [Zofran] 4 mg PO Q6HP PRN 09/06/19 Promethazine HCl [Phenergan 25 mg Supp.rect] 1 supp [place] Q6HP PRN 09/06/19 Pnv No.95/Ferrous Fum/Folic AC [ Caplet] 1 tab PO DAILY 10/23/19 Allergies/Adverse Reactions: cat dander Allergy (Verified 11/04/19 16:33) Review of Systems Constitutional: ABSENT: anorexia, chills, fatigue Eyes: ABSENT: visual disturbances Ears: ABSENT: hearing changes Nose, Mouth, and Throat: ABSENT: sore throat Cardiovascular: ABSENT: chest pain Respiratory: ABSENT: cough Gastrointestinal: ABSENT: abdominal pain Genitourinary: ABSENT: dysuria Musculoskeletal: ABSENT: back pain Integumentary: PRESENT: other - Swelling and pain on the right buttock Neurological: ABSENT: confusion, convulsions, dizziness Psychiatric: ABSENT: anxiety, depression Endocrine: ABSENT: cold intolerance, heat intolerance Hematologic/Lymphatic: ABSENT: easy bleeding, easy bruising Physical Exam Vital Signs: Temp Pulse Resp BP Pulse Ox 98.5 F 72 16 132/84 H 100 11/04/19 16:33 11/04/19 16:24 11/04/19 16:24 11/04/19 16:24 11/04/19 16:24 Intake & Output 11/03/19 11/04/19 11/05/19 06:59 06:59 06:59 Weight 53.1 kg General appearance: PRESENT: no acute distress, cooperative Head exam: PRESENT: atraumatic, normocephalic Eye exam: PRESENT: EOMI, PERRLA. ABSENT: scleral icterus Mouth exam: PRESENT: moist, neck supple Neck exam: ABSENT: meningismus, tenderness, thyromegaly, tracheal deviation Respiratory exam: PRESENT: unlabored. ABSENT: tachypnea, wheezes Cardiovascular exam: ABSENT: tachycardia GI/Abdominal exam: PRESENT: soft. ABSENT: distended, guarding, rigid, tenderness Rectal exam: PRESENT: normal rectal tone. ABSENT: mass, tenderness Extremities exam: ABSENT: clubbing, pedal edema Musculoskeletal exam: ABSENT: deformity Neurological exam: PRESENT: alert, awake, oriented to person, oriented to place, oriented to time, oriented to situation, CN II-XII grossly intact. ABSENT: motor sensory deficit Psychiatric exam: ABSENT: agitated, anxious, depressed Focused psych exam: ABSENT: delusional Skin exam: ABSENT: cyanosis, erythema, jaundice Assessment & Plan - Diagnosis (1) Perianal abscess Is this a current diagnosis for this admission?: Yes - Plan Summary Plan Summary: This is a 29-year-old female with a perianal abscess. She has no evidence of perirectal involvement. The emergency room providers are uncomfortable draining this abscess, and have consulted me to perform the procedure. The small perianal abscess can be drained in the ER under local sedation. The patient can be sent home afterwards. I will perform this at the bedside today. Risks/benefits discussed with the patient. Informed consent was obtained. Discharge/disposition per emergency room provider.
--- NOTE | 2019-11-04 21:17 | Operative Report ---
Nonrecallable Operative Report DATE OF SURGERY: 11/04/19 PREOPERATIVE DIAGNOSIS: perianal abscess. POSTOPERATIVE DIAGNOSIS: Same as above OPERATION: Incision and drainage of perianal abscess SURGEON: ROBERTO LUQUE ANESTHESIA: Local COMPLICATIONS: None apparent ESTIMATED BLOOD LOSS: Minimal PROCEDURE: Drains/implants: 4 x 4 gauze. Procedure in detail: After informed consent was obtained, the patient was laid in the right lateral decubitus position in the emergency department. The area of the left buttock was prepped and draped in a normal sterile fashion. 1% lidocaine was used to anesthetize the skin. An incision was created over the area of previous scarring. The incision was then carried medially in order to completely open the cavity. This created an incision in a T-configuration. A moderate amount of purulent material was found within the abscess cavity. The cavity was irrigated. A 4 x 4 gauze was used as packing. After this was completed, a dressing was placed. The procedure was at this time concluded. All sponge, instrument, and needle counts were correct. Condition: Stable. Recommendation: Sitz baths twice daily and after bowel movements. Keep the area clean and dry. Antibiotics x7 days.
== END 2019-11-04 19:58 | disposition home or self-care (01) ==
LOC: ER 16:20
DX: O26.93 Pregnancy related conditions, unspecified, third trimester (principal); K61.0 Anal abscess; Z3A.33 33 weeks gestation of pregnancy; Z90.49 Acquired absence of other specified parts of digestive tract
CPT/HCPCS: 99283

== ENCOUNTER 2019-11-06 19:52 | Outpatient (CLI) | payer OTHER ==
[2019-11-06 20:26] LABS: APPEARANCE,URINE CLOUDY; BILIRUBIN,URINE NEGATIVE (NEGATIVE); GLUCOSE, URINE NEGATIVE (NEGATIVE); KETONES,URINE NEGATIVE (NEGATIVE); LEUKOCYTE ESTERASE,URINE NEGATIVE (NEGATIVE); NITRITE,URINE NEGATIVE (NEGATIVE); PROTEIN,URINE NEGATIVE (NEGATIVE); URINE SPECIFIC GRAVITY 1.028
[2019-11-06 20:27] LABS: COLOR,URINE YELLOW
[2019-11-06 20:42] LABS: URINE AMPHETAMINES SCREEN NEGATIVE; URINE BARBITURATES SCREEN NEGATIVE; URINE BENZODIAZEPINES SCREEN NEGATIVE; URINE COCAINE SCREEN NEGATIVE; URINE MARIJUANA (THC) SCREEN NEGATIVE; URINE METHADONE SCREEN NEGATIVE; URINE PHENCYCLIDINE SCREEN NEGATIVE
--- NOTE | 2019-11-07 00:04 | Non Stress Test Report ---
Non Stress Test Datetime Report Generated by CPN: 11/07/2019 00:04 DEMOGRAPHIC EGA NST: 33.6 INDICATION Indication for Study (NST) Other: lc MONITORING Monitor Explained: Monitor Explained; Test Explained; Patient Verbalized Understanding Time on Monitor: 11/06/2019 21:05 Time off Monitor: 11/07/2019 23:21 NST Duration: 1576 NST INTERVENTIONS NST Interventions: PO Hydration; Reposition Patient Physician Notified NST: Dr Spears BABY A: [id number] BABY A Movement : Present Contraction Frequency : irreg FHR Baseline : 140 Accelerations : 15X15 Decelerations : None Variability : Moderate 6-25bpm NST Review: Meets Criteria for Reactive NST NST Review and Verified By : Qi Usavamachelle RN NST Results: Reactive NST REPORT Report Trigger: Send Report
== END 2019-11-06 23:30 | disposition home or self-care (01) ==
LOC: LC 19:52
PROVIDERS: ATTEND Obstetrics & Gynecology
DX: O47.03 False labor before 37 completed weeks of gestation, third trimester (principal); Z3A.33 33 weeks gestation of pregnancy
CPT/HCPCS: 59025; 80307; 81001

== ENCOUNTER 2019-11-08 15:59 | Outpatient (CLI) | payer OTHER ==
[2019-11-08] MEDS ORDERED: RINGERS SOLUTION,LACTATED 1,000 ML IV PRN (16:09)
--- NOTE | 2019-11-08 16:51 | RADIOLOGY REPORT (SQ) ---
EXAM DESCRIPTION: U/S OB LIMITED IMAGES COMPLETED DATE/TIME: 11/08/2019 4:35 pm REASON FOR STUDY: IUGR with decel in office please obtain JOSE LUIS thanks COMPARISON: None. TECHNIQUE: Limited transvaginal grayscale ultrasound for evaluation of specific requested obstetrica l parameters. LIMITATIONS: None. FINDINGS: CERVICAL LENGTH: 2.6 cm. Closed. JOSE LUIS: 20 cm. FHR: 137 beats per minute. PRESENTATION: Cephalic. PLACENTA: Anterior ANATOMY: Not assessed OTHER: No other significant findings. IMPRESSION: LIMITED OBSTETRICAL ULTRASOUND WITH MEASURED PARAMETERS DELINEATED ABOVE. Trimester of : Third trimester - 28 weeks to delivery. TECHNICAL DOCUMENTATION: JOB ID: [id number] 2010 [employer]- All Rights Reserved Reading location - IP/workstation name: [email or web address]
[2019-11-08 18:02] LABS: APPEARANCE,URINE CLOUDY; BILIRUBIN,URINE SMALL (NEGATIVE); COLOR,URINE AMBER; GLUCOSE, URINE NEGATIVE (NEGATIVE); KETONES,URINE NEGATIVE (NEGATIVE); LEUKOCYTE ESTERASE,URINE TRACE (NEGATIVE); NITRITE,URINE NEGATIVE (NEGATIVE); PROTEIN,URINE 30 mg/dL (NEGATIVE); URINE SPECIFIC GRAVITY 1.034
[2019-11-08 18:19] LABS: URINE AMPHETAMINES SCREEN NEGATIVE; URINE BARBITURATES SCREEN NEGATIVE; URINE BENZODIAZEPINES SCREEN NEGATIVE; URINE COCAINE SCREEN NEGATIVE; URINE MARIJUANA (THC) SCREEN NEGATIVE; URINE METHADONE SCREEN NEGATIVE; URINE PHENCYCLIDINE SCREEN NEGATIVE
--- NOTE | 2019-11-08 19:20 | Non Stress Test Report ---
Non Stress Test Datetime Report Generated by CPN: 11/08/2019 19:20 DEMOGRAPHIC EGA NST: 34.1 INDICATION Indication for Study (NST) Other: provider orders VITAL SIGNS Temperature - NST: 97.3 Pulse - NST: 76 RESP - NST: 18 NBPSYS NST: 119 NBPDIA NST: 77 MONITORING Monitor Explained: Monitor Explained; Test Explained; Patient Verbalized Understanding Time on Monitor: 11/08/2019 16:33 Time off Monitor: 11/08/2019 19:19 NST Duration: 166 NST INTERVENTIONS NST Interventions: PO Hydration; IV Fluids; Reposition Patient Physician Notified NST: Gutiérrez Md BABY A: [id number] BABY A Movement : Present Contraction Frequency : irritability noted FHR Baseline : 145 Accelerations : 15X15 Decelerations : None Variability : Moderate 6-25bpm NST Review: Meets Criteria for Reactive NST NST Review and Verified By : SAutry NST Results: Reactive NST REPORT Report Trigger: Send Report
== END 2019-11-08 19:49 | disposition home or self-care (01) ==
LOC: LC 15:59
PROVIDERS: ATTEND Student in an Organized Health Care Education/Training Program
DX: O36.5930 Maternal care for other known or suspected poor fetal growth, third trimester, not applicable or unspecified (principal); O99.283 Endocrine, nutritional and metabolic diseases complicating pregnancy, third trimester; E86.0 Dehydration; O21.9 Vomiting of pregnancy, unspecified; Z3A.34 34 weeks gestation of pregnancy
CPT/HCPCS: 59025; 76815; 80307; 81001; 94760

== ENCOUNTER 2019-11-10 16:50 | Observation (INO) | payer OTHER ==
[2019-11-10] MEDS ORDERED: ONDANSETRON HCL INJ/PF 4 MG/2 ML SDV ONE (17:18)
[2019-11-10] MEDS ORDERED: HYDROXYZINE PAMOATE 50 MG CAPSULE ONE (17:18)
[2019-11-10] MEDS ORDERED: DEXTROSE 5%-LACTATED RINGERS 1,000 ML IV PRN (17:24)
[2019-11-10] MEDS ORDERED: RINGERS SOLUTION,LACTATED 1,000 ML IV PRN (17:29)
[2019-11-10] MEDS ORDERED: ONDANSETRON HCL INJ/PF 4 MG/2 ML SDV IV ONE (17:30)
[2019-11-10 17:47] LABS: APPEARANCE,URINE CLOUDY; BILIRUBIN,URINE NEGATIVE (NEGATIVE); COLOR,URINE AMBER; GLUCOSE, URINE NEGATIVE (NEGATIVE); KETONES,URINE 20 mg/dL (NEGATIVE); PROTEIN,URINE 100 mg/dL (NEGATIVE); URINE SPECIFIC GRAVITY 1.031
[2019-11-10] MEDS ORDERED: SCOPOLAMINE HYDROBROMIDE 1.5 MG PATCH.TD72 TD ONE (18:00)
[2019-11-10 18:02] LABS: URINE AMPHETAMINES SCREEN NEGATIVE; URINE BARBITURATES SCREEN NEGATIVE; URINE BENZODIAZEPINES SCREEN NEGATIVE; URINE COCAINE SCREEN NEGATIVE; URINE MARIJUANA (THC) SCREEN NEGATIVE; URINE METHADONE SCREEN NEGATIVE; URINE PHENCYCLIDINE SCREEN NEGATIVE
[2019-11-10 18:19] LABS: ALBUMIN 2.9 g/dL (3.5-5.0); ALKALINE PHOSPHATASE 199 U/L (38-126); ASPARTATE AMINO TRANSFERASE 24 U/L (14-36); BILIRUBIN,TOTAL 0.3 mg/dL (0.2-1.3); BLOOD UREA NITROGEN 4 mg/dL (7-20); CALCIUM 8.1 mg/dL (8.4-10.2); CARBON DIOXIDE 25 mmol/L (22-30); CHLORIDE 106 mmol/L (98-107); GLUCOSE 79 mg/dL (75-110); TOTAL PROTEIN 5.9 g/dL (6.3-8.2)
[2019-11-10 18:31] LABS: ANION GAP 4 (5-19); POTASSIUM 2.9 mmol/L (3.6-5.0)
[2019-11-10 18:35] LABS: FREE T3 2.76 pg/mL (2.77-5.27); FREE T4 (FREE THYROXINE) 1.15 ng/dL (0.78-2.19)
[2019-11-10 18:48] LABS: THYROID STIMULATING HORMONE 0.34 uIU/mL (0.47-4.68)
[2019-11-10] MEDS ORDERED: ONDANSETRON HCL INJ/PF 4 MG/2 ML SDV IV PRN (18:56)
[2019-11-10] MEDS ORDERED: ACETAMINOPHEN 325 MG TABLET PO ONE (19:32)
[2019-11-10] MEDS ORDERED: ACETAMINOPHEN 325 MG TABLET ONE (19:53)
[2019-11-10] MEDS: POTASSI CL 20 MEQ/D5-1/2NS 1L 1,000 ML IV PRN (19:56)
[2019-11-10] MEDS: POTASSI CL 20 MEQ/50 ML RIDER 20 MEQ/50 ML RTUPB IV SCH ×2 (20:03→22:29)
[2019-11-11] MEDS: POTASSI CL 20 MEQ/D5-1/2NS 1L 1,000 ML IV PRN ×2 (02:09→09:34)
[2019-11-11] MEDS ORDERED: PANTOPRAZOLE SODIUM 40 MG TABLET.DR PO SCH (06:00)
[2019-11-11 06:57] LABS: ALBUMIN 2.5 g/dL (3.5-5.0); ALKALINE PHOSPHATASE 167 U/L (38-126); ASPARTATE AMINO TRANSFERASE 24 U/L (14-36); BILIRUBIN,TOTAL 0.3 mg/dL (0.2-1.3); BLOOD UREA NITROGEN 3 mg/dL (7-20); CALCIUM 7.7 mg/dL (8.4-10.2); TOTAL PROTEIN 5.3 g/dL (6.3-8.2)
[2019-11-11 07:02] LABS: CARBON DIOXIDE 24 mmol/L (22-30); CHLORIDE 109 mmol/L (98-107)
[2019-11-11 07:06] LABS: GLUCOSE 42 mg/dL (75-110)
[2019-11-11 07:07] LABS: ANION GAP 2 (5-19); POTASSIUM 3.9 mmol/L (3.6-5.0)
--- NOTE | 2019-11-11 08:00 | PDOC H&P ---
History of Present Illness Admission Date/PCP: 11/10/19 18:45 EILEEN CRUZ MD History of Present Illness: TIMBO YOUNG is a 29 year old female at 34 wks EGA with non-tractab le nausea and vomiting from hyperemeisis of and now hypokalemia She has lost 20+ lbs this . Has been on zofran PO, phenergan RI and still vomiting at home. She feels bad today. No f/c. Good FM. No ctx or LOF She is recieving progesterone due to history of delivery. Last EFW was on 11/06/19 and was 2,198 gms or 4 lb 14 oz in the 32 % Past Medical History Cardiac Medical History: Denies: Congestive Heart Failure, Coronary Artery Disease, Hypertension Pulmonary Medical History: Denies: Asthma, Chronic Obstructive Pulmonary Disease (COPD) Endocrine Medical History: Denies: Diabetes Mellitus Type 1, Diabetes Mellitus Type 2 Psychiatric Medical History: Reports: Depression Past Surgical History Past Surgical History: Reports: Section, Cholecystectomy, Orthopedic Surgery - spinal fusion Social History Information Source: Patient Lives with: Family Smoking Status: Never Smoker Electronic Cigarette use?: No Frequency of Alcohol Use: None Hx Recreational Drug Use: No Drugs: None Hx Prescription Drug Abuse: No Family History Family History: DM Parental Family History Reviewed: Yes Children Family History Reviewed: Yes Sibling(s) Family History Reviewed.: Yes Medication/Allergy Home Medications: Ondansetron HCl [Zofran] 4 mg PO Q6HP PRN 09/06/19 Promethazine HCl [Phenergan 25 mg Supp.rect] 1 supp [place] Q6HP PRN 09/06/19 Pnv No.95/Ferrous Fum/Folic AC [ Caplet] 1 tab PO DAILY 10/23/19 Omeprazole/Sodium Bicarbonate [Cvs Omeprazole-Bicarb 20-1,100] 1 each PO DAILY 11/08/19 Progesterone,Micronized [Prometrium 100 Mg Capsule] 100 mg PO BID 11/08/19 Allergies/Adverse Reactions: cat dander Allergy (Verified 11/10/19 16:58) Review of Systems Constitutional: ABSENT: chills, fever(s), headache(s), weight gain, weight loss Cardiovascular: ABSENT: chest pain, dyspnea on exertion, edema, orthropnea, palpitations Respiratory: ABSENT: cough, hemoptysis Gastrointestinal: PRESENT: nausea, vomiting Genitourinary: ABSENT: dysuria, hematuria Integumentary: ABSENT: rash, wounds Neurological: ABSENT: abnormal gait, abnormal speech, confusion, dizziness, focal weakness, syncope Psychiatric: ABSENT: anxiety, depression, homidical ideation, suicidal ideation Endocrine: ABSENT: cold intolerance, heat intolerance, polydipsia, polyuria Hematologic/Lymphatic: ABSENT: easy bleeding, easy bruising Physical Exam - Physical Exam Vital Signs: Temp Pulse Resp BP Pulse Ox 97.9 F 57 L 16 101/77 100 11/11/19 04:31 11/11/19 04:31 11/11/19 04:31 11/11/19 04:31 11/11/19 04:31 Intake & Output 11/10/19 11/11/19 11/12/19 06:59 06:59 06:59 Intake Total 1327 Output Total 300 Balance 1027 Weight 56.1 kg General appearance: PRESENT: no acute distress, cooperative Mouth exam: PRESENT: dry mucosa Respiratory exam: PRESENT: clear to auscultation dion Cardiovascular exam: PRESENT: RRR, +S1, +S2 GI/Abdominal exam: PRESENT: normal bowel sounds, soft - Non-tender Extremities exam: PRESENT: full ROM. ABSENT: calf tenderness, clubbing, pedal edema Psychiatric exam: PRESENT: appropriate affect, normal mood Skin exam: PRESENT: dry, warm Result Laboratory Results: 11/11/19 05:14 11/10/19 11/10/19 11/10/19 17:10 17:10 17:45 Sodium 134.6 L Potassium 2.9 L* Chloride 106 Carbon Dioxide 25 Anion Gap 4 L BUN 4 L Creatinine 0.57 Est GFR ( Amer) > 60 Glucose 79 Calcium 8.1 L Magnesium Total Bilirubin 0.3 AST 24 Alkaline Phosphatase 199 H Total Protein 5.9 L Albumin 2.9 L Lipase 24.8 TSH Free T4 Free T3 pg/mL Urine Color Cancelled NABOR Urine Appearance Cancelled CLOUDY Urine pH Cancelled 7.0 Ur Specific [place] Cancelled 1.031 Urine Protein Cancelled 100 H Urine Glucose (UA) Cancelled NEGATIVE Urine Ketones Cancelled 20 H Urine Blood Cancelled NEGATIVE Urine Nitrite Cancelled Ur Leukocyte Esterase Cancelled Urine WBC (Auto) Cancelled Urine RBC (Auto) Cancelled 39 11/10/19 11/10/19 11/11/19 17:45 17:45 05:14 Sodium 134.8 L Potassium 3.9 D Chloride 109 H Carbon Dioxide 24 Anion Gap 2 L BUN 3 L Creatinine 0.52 Est GFR ( Amer) > 60 Glucose 42 L Calcium 7.7 L Magnesium 1.7 Total Bilirubin 0.3 AST 24 Alkaline Phosphatase 167 H Total Protein 5.3 L Albumin 2.5 L Lipase TSH 0.34 L Free T4 1.15 Free T3 pg/mL 2.76 L Urine Color Urine Appearance Urine pH Ur Specific [place] Urine Protein Urine Glucose (UA) Urine Ketones Urine Blood Urine Nitrite Ur Leukocyte Esterase Urine WBC (Auto) Urine RBC (Auto) Assessment & Plan - Diagnosis (1) Hyperemesis complicating , antepartum Is this a current diagnosis for this admission?: Yes (2) Hypokalemia due to excessive gastrointestinal loss of potassium Is this a current diagnosis for this admission?: Yes - Time Critical Time spent with patient: Less than 15 minutes - Plan Summary Plan Summary: 29 yo at 34 wks EGA with hypokalemia secondary to intractable n/v relate d to hyperemesis of -Admit to LDR -VSS repeat Q 4 hr -Out of bed at bipin -Encourage fluids /BLAND diet -K was 2.9 on admit. Asymptomatic -Scopolamine patch and zofran for nausea -Potassium IV piggy back overnight: 20 meq x2 and add 20 meq KCL to IVFs -Mag level 1.7 -Thyroid studies normal -Benadryl PRN itching. Bile acids pending -NST on admit cat 1 . COntinue BID Repeat labs in am
[2019-11-11 11:23] VITALS: BP 123/81
--- NOTE | 2019-11-11 11:34 | PDOC DISCHARGE SUMMARY ---
Impression - Admit/DC Date/PCP Admission Date/Primary Care Provider: 11/10/19 18:45 EILEEN CRUZ MD Discharge Date: 11/11/19 - Assessment Summary: 34+wks. Sent from office with dehydration and intractable vomiting. Patient feeling worse than when she was seen on Wed in the office. Found to have hypokalemia. - Additional Information Resuscitation Status: Full Code Discharge Diet: As Tolerated Discharge Activity: Activity As Tolerated, Energy Conservation, Pelvic Rest Referrals: EILEEN CRUZ MD [Primary Care Provider] - Home Medications: Ondansetron HCl [Zofran] 4 mg PO Q6HP PRN 09/06/19 Promethazine HCl [Phenergan 25 mg Supp.rect] 1 supp [place] Q6HP PRN 09/06/19 Pnv No.95/Ferrous Fum/Folic AC [ Caplet] 1 tab PO DAILY 10/23/19 Omeprazole/Sodium Bicarbonate [Cvs Omeprazole-Bicarb 20-1,100] 1 each PO DAILY 11/08/19 Progesterone,Micronized [Prometrium 100 Mg Capsule] 100 mg PO BID 11/08/19 History of Present Illiness History of Present Illness: TIMBO YOUNG is a 29 year old female 34+wks. Sent from office with dehydration and intractable vomiting. Patient feeling worse than when she was seen on Wed in the office. Found to have hypokalemia. Potassium replaced and Scopolamine patch given. patient doing well. no vomiting overnight. Desires to go home. Hospital Course Hospital Course: 29 year old female 34+wks. Sent from office with dehydration and intractable vomiting. Patient feeling worse than when she was seen on Wed in the office. Found to have hypokalemia. Potassium replaced and Scopolamine patch given. patient doing well. no vomiting overnight. Desires to go home. Physical Exam - Physical Exam Vital Signs: Temp Pulse Resp BP Pulse Ox 98.2 F 51 L 16 123/81 100 11/11/19 11:20 11/11/19 11:20 11/11/19 11:20 11/11/19 11:20 11/11/19 11:20 Intake & Output 11/10/19 11/11/19 11/12/19 06:59 06:59 06:59 Intake Total 1327 1000 Output Total 300 Balance 1027 1000 Weight 56.1 kg General appearance: PRESENT: no acute distress, well-developed, well-nourished Head exam: PRESENT: atraumatic, normocephalic Respiratory exam: PRESENT: clear to auscultation dion, symmetrical, unlabored Cardiovascular exam: PRESENT: RRR. ABSENT: diastolic murmur, rubs, systolic murmur Pulses: PRESENT: normal dorsalis pedis pul, +2 pedal pulses bilateral GI/Abdominal exam: PRESENT: normal bowel sounds, soft. ABSENT: distended, guarding, mass, organolmegaly, rebound, tenderness Rectal exam: PRESENT: deferred Extremities exam: PRESENT: full ROM. ABSENT: calf tenderness, clubbing, pedal edema Neurological exam: PRESENT: alert, awake, oriented to person, oriented to place, oriented to time, oriented to situation, CN II-XII grossly intact. ABSENT: motor sensory deficit Results Laboratory Results: Sodium 134.8 mmol/L (137-145) L 11/11/19 05:14 Potassium 3.9 mmol/L (3.6-5.0) D 11/11/19 05:14 Chloride 109 mmol/L (98-107) H 11/11/19 05:14 Carbon Dioxide 24 mmol/L (22-30) 11/11/19 05:14 Anion Gap 2 (5-19) L 11/11/19 05:14 BUN 3 mg/dL (7-20) L 11/11/19 05:14 Creatinine 0.52 mg/dL (0.52-1.25) 11/11/19 05:14 Est GFR ( Amer) > 60 (>60) 11/11/19 05:14 Est GFR (MDRD) Non-Af > 60 (>60) 11/11/19 05:14 Glucose 42 mg/dL (75-110) L 11/11/19 05:14 POC Glucose 84 mg/dL (70-110) 11/11/19 07:09 Calcium 7.7 mg/dL (8.4-10.2) L 11/11/19 05:14 Magnesium 1.7 mg/dL (1.6-2.3) 11/10/19 17:45 Total Bilirubin 0.3 mg/dL (0.2-1.3) 11/11/19 05:14 Direct Bilirubin 0.0 mg/dL (0.0-0.4) 11/11/19 05:14 Neonat Total Bilirubin Not Reportable 11/11/19 05:14 Neonat Direct Bilirubin Not Reportable 11/11/19 05:14 Neonat Indirect Bili Not Reportable 11/11/19 05:14 AST 24 U/L (14-36) 11/11/19 05:14 ALT 12 U/L (<35) 11/11/19 05:14 Alkaline Phosphatase 167 U/L (38-126) H 11/11/19 05:14 Total Protein 5.3 g/dL (6.3-8.2) L 11/11/19 05:14 Albumin 2.5 g/dL (3.5-5.0) L 11/11/19 05:14 Lipase 24.8 U/L (23-300) 11/10/19 17:45 TSH 0.34 uIU/mL (0.47-4.68) L 11/10/19 17:45 Free T4 1.15 ng/dL (0.78-2.19) 11/10/19 17:45 Free T3 pg/mL 2.76 pg/mL (2.77-5.27) L 11/10/19 17:45 Urine Color NABOR 11/10/19 17:10 Urine Color Cancelled 11/10/19 17:10 Urine Appearance CLOUDY 11/10/19 17:10 Urine Appearance Cancelled 11/10/19 17:10 Urine pH 7.0 (5.0-9.0) 11/10/19 17:10 Urine pH Cancelled 11/10/19 17:10 Ur Specific [place] 1.031 11/10/19 17:10 Ur Specific [place] Cancelled 11/10/19 17:10 Urine Protein 100 mg/dL (NEGATIVE) H 11/10/19 17:10 Urine Protein Cancelled 11/10/19 17:10 Urine Glucose (UA) Cancelled 11/10/19 17:10 Urine Glucose (UA) NEGATIVE mg/dL (NEGATIVE) 11/10/19 17:10 Urine Ketones 20 mg/dL (NEGATIVE) H 11/10/19 17:10 Urine Ketones Cancelled 11/10/19 17:10 Urine Blood Cancelled 11/10/19 17:10 Urine Blood NEGATIVE (NEGATIVE) 11/10/19 17:10 Urine Nitrite Cancelled 11/10/19 17:10 Urine Nitrite (Reflex) NEGATIVE (NEGATIVE) 11/10/19 17:10 Urine Bilirubin Cancelled 11/10/19 17:10 Urine Bilirubin NEGATIVE (NEGATIVE) 11/10/19 17:10 Urine Urobilinogen 4.0 mg/dL (<2.0) H 11/10/19 17:10 Urine Urobilinogen Cancelled 11/10/19 17:10 Ur Leukocyte Esterase Cancelled 11/10/19 17:10 Leukocyte Esterase Rfl LARGE (NEGATIVE) H 11/10/19 17:10 Urine WBC (Auto) Cancelled 11/10/19 17:10 Urine RBC (Auto) 39 /HPF 11/10/19 17:10 Urine RBC (Auto) Cancelled 11/10/19 17:10 U Hyaline Cast (Auto) 2 /LPF 11/10/19 17:10 U Hyaline Cast (Auto) Cancelled 11/10/19 17:10 Urine Bacteria (Auto) Cancelled 11/10/19 17:10 Urine Bacteria (Auto) TRACE /HPF 11/10/19 17:10 Urine Red Cell Clumps Cancelled 11/10/19 17:10 Urine WBC (Reflex) 113 /HPF 11/10/19 17:10 Urine WBC Clumps Cancelled 11/10/19 17:10 Squamous Epi Cells Auto 10 /HPF 11/10/19 17:10 Squamous Epi Cells Auto Cancelled 11/10/19 17:10 U Non-Squamous Epis Auto Cancelled 11/10/19 17:10 Calcium Carbonate Cryst Cancelled 11/10/19 17:10 Calcium Phosphate Cryst Cancelled 11/10/19 17:10 Calcium Oxalate Cr Auto Cancelled 11/10/19 17:10 Leucine Crystals Cancelled 11/10/19 17:10 Cystine Crystals Cancelled 11/10/19 17:10 Uric Acid Cryst (Auto) Cancelled 11/10/19 17:10 Triple Phos Cryst (Auto) Cancelled 11/10/19 17:10 Tyrosine Crystals Cancelled 11/10/19 17:10 Amorphous Sediment Auto Cancelled 11/10/19 17:10 Cellular Casts Cancelled 11/10/19 17:10 Epithelial Casts (Auto) Cancelled 11/10/19 17:10 Fatty Casts Cancelled 11/10/19 17:10 Granular Casts (Auto) Cancelled 11/10/19 17:10 Waxy Casts (Auto) Cancelled 11/10/19 17:10 Broad Casts Cancelled 11/10/19 17:10 RBC Casts (Auto) Cancelled 11/10/19 17:10 WBC Casts (Auto) Cancelled 11/10/19 17:10 Urine Mucus (Auto) Cancelled 11/10/19 17:10 Urine Mucus (Auto) FEW /LPF 11/10/19 17:10 U Trichomonas (Auto) Cancelled 11/10/19 17:10 Ur Yeast w Hyphae Cancelled 11/10/19 17:10 Urine Yeast (Budding) Cancelled 11/10/19 17:10 Urine Ascorbic Acid Cancelled 11/10/19 17:10 Urine Ascorbic Acid NEGATIVE (NEGATIVE) 11/10/19 17:10 Urine Opiates Screen NEGATIVE 11/10/19 17:10 Urine Methadone Screen NEGATIVE 11/10/19 17:10 Ur Barbiturates Screen NEGATIVE 11/10/19 17:10 Ur Phencyclidine Scrn NEGATIVE 11/10/19 17:10 Ur Amphetamines Screen NEGATIVE 11/10/19 17:10 U Benzodiazepines Scrn NEGATIVE 11/10/19 17:10 Urine Cocaine Screen NEGATIVE 11/10/19 17:10 U Marijuana (THC) Screen NEGATIVE 11/10/19 17:10 Stroke Is this a Stroke Patient?: No Acute Heart Failure - Is this a Heart Failure Patient?: No
== END 2019-11-11 12:05 | disposition home or self-care (01) ==
LOC: LC 16:50 → LR 18:45 → 2N 20:33
PROVIDERS: ADMIT Obstetrics & Gynecology; ATTEND Obstetrics & Gynecology
DX: O21.1 Hyperemesis gravidarum with metabolic disturbance (principal); E86.0 Dehydration; O99.013 Anemia complicating pregnancy, third trimester; D64.9 Anemia, unspecified; Z3A.34 34 weeks gestation of pregnancy; O09.213 Supervision of pregnancy with history of pre-term labor, third trimester; Z90.49 Acquired absence of other specified parts of digestive tract; Z83.3 Family history of diabetes mellitus; Z98.1 Arthrodesis status
CPT/HCPCS: 59025; 36415 ×2; 84439; 82962; 83690; 83735; 84443; 80053 ×2; 81001; 80307; 84481; 82239; G0378 ×2; G0379; J3480 ×3; J2405; J3490

== ENCOUNTER 2019-11-15 18:20 | Outpatient (CLI) | payer OTHER ==
[2019-11-15 19:30] LABS: APPEARANCE,URINE SLIGHTLY-CLOUDY; BILIRUBIN,URINE NEGATIVE (NEGATIVE); GLUCOSE, URINE NEGATIVE (NEGATIVE); KETONES,URINE NEGATIVE (NEGATIVE); LEUKOCYTE ESTERASE,URINE TRACE (NEGATIVE); NITRITE,URINE NEGATIVE (NEGATIVE); PROTEIN,URINE NEGATIVE (NEGATIVE); URINE SPECIFIC GRAVITY 1.031
[2019-11-15 19:31] LABS: COLOR,URINE YELLOW
[2019-11-15 19:38] LABS: URINE AMPHETAMINES SCREEN NEGATIVE; URINE BARBITURATES SCREEN NEGATIVE; URINE BENZODIAZEPINES SCREEN NEGATIVE; URINE COCAINE SCREEN NEGATIVE; URINE MARIJUANA (THC) SCREEN NEGATIVE; URINE METHADONE SCREEN NEGATIVE; URINE PHENCYCLIDINE SCREEN NEGATIVE
[2019-11-15 19:53] LABS: ABSOLUTE EOSINOPHILS # (AUTO) 0.1 10^3/uL (0.0-0.6); ABSOLUTE LYMPHOCYTES (AUTO) 2.1 10^3/uL (0.5-4.7); ABSOLUTE MONOCYTES (AUTO) 0.5 10^3/uL (0.1-1.4); ABSOLUTE NEUT (AUTO) 3.4 10^3/uL (1.7-8.2); BASOPHILS % (AUTO) 0.6 % (0-2); EOSINOPHILS % (AUTO) 0.9 % (0-6); HEMATOCRIT 27.7 % (36.0-47.0); HEMOGLOBIN 9.4 g/dL (12.0-15.5); LYMPHOCYTES % (AUTO) 34.5 % (13-45); MEAN CORPUSCULAR HEMOGLOBIN 27.9 pg (27.0-33.4); MEAN CORPUSCULAR HGB CONC 33.9 g/dL (32.0-36.0); MEAN CORPUSCULAR VOLUME 82 fl (80-97); PLATELET COUNT 212 10^3/uL (150-450); RED BLOOD COUNT 3.37 10^6/uL (3.72-5.28); RED CELL DISTRIBUTION WIDTH 13.2 % (11.5-14.0); TOTAL CELLS COUNTED % (AUTO) 100 %; WHITE BLOOD COUNT 6.1 10^3/uL (4.0-10.5)
[2019-11-15 20:14] LABS: ALKALINE PHOSPHATASE 209 U/L (38-126); ANION GAP 6 (5-19); ASPARTATE AMINO TRANSFERASE 26 U/L (14-36); BILIRUBIN,TOTAL 0.2 mg/dL (0.2-1.3); BLOOD UREA NITROGEN 5 mg/dL (7-20); CALCIUM 8.3 mg/dL (8.4-10.2); CARBON DIOXIDE 22 mmol/L (22-30); CHLORIDE 107 mmol/L (98-107); GLUCOSE 74 mg/dL (75-110); POTASSIUM 3.7 mmol/L (3.6-5.0); TOTAL PROTEIN 5.7 g/dL (6.3-8.2); URIC ACID 4.8 mg/dL (2.5-6.2)
[2019-11-15 21:28] LABS: URINE CREATININE 183.5 mg/dL (16-327); URINE PROTEIN 6.8 mg/dL (<12)
--- NOTE | 2019-11-16 03:05 | Non Stress Test Report ---
Non Stress Test Datetime Report Generated by CPN: 11/16/2019 03:05 DEMOGRAPHIC EGA NST: 35.1 EGA NST: 34.3 INDICATION Indication for Study (NST) Other: LC - Swelling Indication for Study (NST) Other: hyperemesis VITAL SIGNS Temperature - NST: 98.3 Pulse - NST: 56 RESP - NST: 16 NBPSYS NST: 120 NBPDIA NST: 76 MONITORING Monitor Explained: Monitor Explained; Test Explained; Patient Verbalized Understanding Monitor Explained: Monitor Explained; Test Explained; Patient Verbalized Understanding Time on Monitor: 11/15/2019 18:44 Time on Monitor: 11/10/2019 17:10 Time off Monitor: 11/15/2019 22:14 NST Duration: 210 NST INTERVENTIONS NST Interventions: PO Hydration; Reposition Patient NST Interventions: PO Hydration; IV Fluids Physician Notified NST: Dr. Melgoza Physician Notified NST: Dr. Melgoza BABY A: [id number] BABY A Movement : Present Movement : Present (Annotations: Data stored by [facility] on behalf of user) Contraction Frequency : Irregular Contraction Frequency : none FHR Baseline : 125 FHR Baseline : 120 Accelerations : 15X15 Accelerations : 15X15 Decelerations : None Decelerations : None Variability : Moderate 6-25bpm Variability : Moderate 6-25bpm NST Review: Meets Criteria for Reactive NST NST Review: Meets Criteria for Reactive NST NST Review and Verified By : Clinton Gallo RN NST Results: Reactive NST Results: Reactive NST REPORT Report Trigger: Send Report
== END 2019-11-15 22:20 | disposition home or self-care (01) ==
LOC: LC 18:20
PROVIDERS: ATTEND Obstetrics & Gynecology
DX: O47.03 False labor before 37 completed weeks of gestation, third trimester (principal); O12.03 Gestational edema, third trimester; O21.0 Mild hyperemesis gravidarum; Z3A.35 35 weeks gestation of pregnancy
CPT/HCPCS: 36415; 80053; 80307; 81001; 82570; 83615; 84156; 84550; 85025

== ENCOUNTER 2019-11-21 14:38 | Outpatient (CLI) | payer OTHER ==
--- NOTE | 2019-11-21 15:27 | Non Stress Test Report ---
Non Stress Test Datetime Report Generated by CPN: 11/21/2019 15:27 DEMOGRAPHIC EGA NST: 36.0 INDICATION Indication for Study (NST) Other: IUP at 36.0; H/a VITAL SIGNS Temperature - NST: 98.1 Pulse - NST: 60 RESP - NST: 18 NBPSYS NST: 103 NBPDIA NST: 66 MONITORING Monitor Explained: Monitor Explained; Test Explained; Patient Verbalized Understanding Time on Monitor: 11/21/2019 15:00 Time off Monitor: 11/21/2019 15:25 NST Duration: 25 NST INTERVENTIONS NST Interventions: PO Hydration Physician Notified NST: PNawaf, CNM BABY A: [id number] BABY A Movement : Present Contraction Frequency : Rare FHR Baseline : 125 Accelerations : 15X15 Decelerations : None Variability : Moderate 6-25bpm NST Review: Meets Criteria for Reactive NST NST Review and Verified By : Beatrice Cee RNC NST Results: Reactive NST REPORT Report Trigger: Send Report
[2019-11-21 15:31] LABS: APPEARANCE,URINE SLIGHTLY-CLOUDY; BILIRUBIN,URINE NEGATIVE (NEGATIVE); COLOR,URINE YELLOW; GLUCOSE, URINE NEGATIVE (NEGATIVE); KETONES,URINE TRACE mg/dL (NEGATIVE); LEUKOCYTE ESTERASE,URINE TRACE (NEGATIVE); NITRITE,URINE NEGATIVE (NEGATIVE); PROTEIN,URINE 100 mg/dL (NEGATIVE); URINE SPECIFIC GRAVITY 1.026; UROBILINOGEN,URINE NEGATIVE mg/dL (<2.0)
[2019-11-21 15:48] LABS: URINE AMPHETAMINES SCREEN NEGATIVE; URINE BARBITURATES SCREEN NEGATIVE; URINE BENZODIAZEPINES SCREEN NEGATIVE; URINE COCAINE SCREEN NEGATIVE; URINE MARIJUANA (THC) SCREEN NEGATIVE; URINE METHADONE SCREEN NEGATIVE; URINE PHENCYCLIDINE SCREEN NEGATIVE
[2019-11-21 16:24] LABS: URINE CREATININE 188.3 mg/dL (16-327); URINE PROTEIN 5.9 mg/dL (<12)
[2019-11-21 16:35] LABS: ABSOLUTE LYMPHOCYTES (AUTO) 1.7 10^3/uL (0.5-4.7); ABSOLUTE MONOCYTES (AUTO) 0.3 10^3/uL (0.1-1.4); ABSOLUTE NEUT (AUTO) 3.4 10^3/uL (1.7-8.2); BASOPHILS % (AUTO) 0.5 % (0-2); EOSINOPHILS % (AUTO) 0.8 % (0-6); HEMATOCRIT 26.9 % (36.0-47.0); HEMOGLOBIN 9.2 g/dL (12.0-15.5); MEAN CORPUSCULAR HEMOGLOBIN 27.9 pg (27.0-33.4); MEAN CORPUSCULAR HGB CONC 34.1 g/dL (32.0-36.0); MEAN CORPUSCULAR VOLUME 82 fl (80-97); MONOCYTES % (AUTO) 4.9 % (3-13); PLATELET COUNT 199 10^3/uL (150-450); RED BLOOD COUNT 3.29 10^6/uL (3.72-5.28); RED CELL DISTRIBUTION WIDTH 13.1 % (11.5-14.0); SEGMENTED NEUTROPHILS % (AUTO) 61.8 % (42-78); TOTAL CELLS COUNTED % (AUTO) 100 %; WHITE BLOOD COUNT 5.5 10^3/uL (4.0-10.5)
[2019-11-21] MEDS ORDERED: RINGERS SOLUTION,LACTATED 1,000 ML IV ONE (16:57)
[2019-11-21] MEDS ORDERED: RINGERS SOLUTION,LACTATED 1,000 ML IV PRN (16:57)
[2019-11-21 17:02] LABS: ALBUMIN 2.8 g/dL (3.5-5.0); ALKALINE PHOSPHATASE 195 U/L (38-126); ANION GAP 6 (5-19); ASPARTATE AMINO TRANSFERASE 26 U/L (14-36); BILIRUBIN,TOTAL 0.3 mg/dL (0.2-1.3); BLOOD UREA NITROGEN 9 mg/dL (7-20); CALCIUM 8.1 mg/dL (8.4-10.2); CARBON DIOXIDE 22 mmol/L (22-30); CHLORIDE 105 mmol/L (98-107); POTASSIUM 3.4 mmol/L (3.6-5.0); TOTAL PROTEIN 5.6 g/dL (6.3-8.2); URIC ACID 5.4 mg/dL (2.5-6.2)
[2019-11-21 17:19] LABS: GLUCOSE 67 mg/dL (75-110)
== END 2019-11-21 17:48 | disposition home or self-care (01) ==
LOC: LC 14:38
PROVIDERS: ATTEND Student in an Organized Health Care Education/Training Program
DX: O26.893 Other specified pregnancy related conditions, third trimester (principal); E86.0 Dehydration; Z3A.36 36 weeks gestation of pregnancy
CPT/HCPCS: 36415; 59025; 80053; 80307; 81001; 82570; 83615; 84156; 84550; 85025

== ENCOUNTER 2019-11-28 15:05 | Observation (INO) | payer OTHER ==
[2019-11-28] MEDS ORDERED: RINGERS SOLUTION,LACTATED 1,000 ML IV ONE (15:54)
[2019-11-28] MEDS ORDERED: RINGERS SOLUTION,LACTATED 1,000 ML IV PRN (15:54)
[2019-11-28 16:16] LABS: ABSOLUTE LYMPHOCYTES (AUTO) 1.6 10^3/uL (0.5-4.7); ABSOLUTE MONOCYTES (AUTO) 0.2 10^3/uL (0.1-1.4); ABSOLUTE NEUT (AUTO) 3.3 10^3/uL (1.7-8.2); BASOPHILS % (AUTO) 0.6 % (0-2); EOSINOPHILS % (AUTO) 0.7 % (0-6); HEMATOCRIT 24.7 % (36.0-47.0); HEMOGLOBIN 8.7 g/dL (12.0-15.5); LYMPHOCYTES % (AUTO) 30.6 % (13-45); MEAN CORPUSCULAR HEMOGLOBIN 28.4 pg (27.0-33.4); MEAN CORPUSCULAR HGB CONC 35.2 g/dL (32.0-36.0); MEAN CORPUSCULAR VOLUME 81 fl (80-97); MONOCYTES % (AUTO) 4.8 % (3-13); PLATELET COUNT 209 10^3/uL (150-450); RED BLOOD COUNT 3.07 10^6/uL (3.72-5.28); RED CELL DISTRIBUTION WIDTH 13.2 % (11.5-14.0); SEGMENTED NEUTROPHILS % (AUTO) 63.3 % (42-78); TOTAL CELLS COUNTED % (AUTO) 100 %; WHITE BLOOD COUNT 5.2 10^3/uL (4.0-10.5)
[2019-11-28 16:35] LABS: ALBUMIN 2.7 g/dL (3.5-5.0); ALKALINE PHOSPHATASE 179 U/L (38-126); ASPARTATE AMINO TRANSFERASE 25 U/L (14-36); BILIRUBIN,TOTAL 0.3 mg/dL (0.2-1.3); BLOOD UREA NITROGEN 8 mg/dL (7-20); CALCIUM 7.8 mg/dL (8.4-10.2); CARBON DIOXIDE 24 mmol/L (22-30); CHLORIDE 106 mmol/L (98-107); GLUCOSE 80 mg/dL (75-110); TOTAL PROTEIN 5.5 g/dL (6.3-8.2); URIC ACID 6.4 mg/dL (2.5-6.2)
[2019-11-28 16:55] LABS: ANION GAP 4 (5-19)
[2019-11-28 17:24] LABS: APPEARANCE,URINE SLIGHTLY-CLOUDY; BILIRUBIN,URINE SMALL (NEGATIVE); COLOR,URINE AMBER; GLUCOSE, URINE NEGATIVE (NEGATIVE); KETONES,URINE NEGATIVE (NEGATIVE); LEUKOCYTE ESTERASE,URINE TRACE (NEGATIVE); NITRITE,URINE NEGATIVE (NEGATIVE); PROTEIN,URINE 30 mg/dL (NEGATIVE); URINE SPECIFIC GRAVITY 1.032
[2019-11-28 17:25] LABS: URINE AMPHETAMINES SCREEN NEGATIVE; URINE BENZODIAZEPINES SCREEN NEGATIVE; URINE COCAINE SCREEN NEGATIVE; URINE MARIJUANA (THC) SCREEN NEGATIVE; URINE METHADONE SCREEN NEGATIVE; URINE PHENCYCLIDINE SCREEN NEGATIVE
[2019-11-28 17:28] LABS: URINE BARBITURATES SCREEN UNCONFIRMED POSITIVE
[2019-11-28 17:29] LABS: URINE CREATININE 297.2 mg/dL (16-327); URINE PRO/CREAT RATIO RESULT CALCULATION NOT DONE mg/mg; URINE PROTEIN < 5.0 mg/dL (<12)
[2019-11-28] MEDS ORDERED: POTASSI CL 20 MEQ/50 ML RIDER 20 MEQ/50 ML RTUPB IV SCH (17:30)
[2019-11-28] MEDS ORDERED: ONDANSETRON HCL INJ/PF 4 MG/2 ML SDV IV PRN (17:48)
[2019-11-28] MEDS ORDERED: PROMETHAZINE HCL 25 MG SUPP.RECT PR PRN (17:48)
[2019-11-28] MEDS ORDERED: ACETAMINOPHEN 325 MG TABLET PO PRN (17:48)
[2019-11-28] MEDS: POTASSI CL 20 MEQ/50 ML RIDER 20 MEQ/50 ML RTUPB IV SCH ×3 (18:09→22:18)
--- NOTE | 2019-11-28 22:04 | Non Stress Test Report ---
Non Stress Test Datetime Report Generated by CPN: 11/28/2019 22:04 DEMOGRAPHIC EGA NST: 37.0 EGA NST: 37.0 INDICATION Indication for Study (NST) Other: IUP @ 37.0 wks Indication for Study (NST) Other: IUP @ 37.0 wks headache VITAL SIGNS Temperature - NST: 98.2 Pulse - NST: 70 RESP - NST: 18 NBPSYS NST: 127 NBPDIA NST: 91 MONITORING Monitor Explained: Monitor Explained; Test Explained; Patient Verbalized Understanding Monitor Explained: Monitor Explained; Test Explained; Patient Verbalized Understanding Time on Monitor: 11/28/2019 19:21 Time on Monitor: 11/28/2019 15:22 Time off Monitor: 11/28/2019 20:05 Time off Monitor: 11/28/2019 16:03 NST Duration: 44 NST Duration: 41 NST INTERVENTIONS NST Interventions: IV Fluids NST Interventions: PO Hydration; IV Fluids; Reposition Patient Physician Notified NST: Dr. Sparks Physician Notified NST: Dr. Sparks BABY A: [id number] BABY A Movement : Present Movement : Present Contraction Frequency : Irritability Contraction Frequency : rare FHR Baseline : 140 FHR Baseline : 135 Accelerations : 15X15 Accelerations : 15X15 Decelerations : None Decelerations : None Variability : Moderate 6-25bpm Variability : Moderate 6-25bpm NST Review: Meets Criteria for Reactive NST NST Review: Meets Criteria for Reactive NST NST Review and Verified By : Qi Johnson RN NST Results: Reactive NST Results: Reactive NST REPORT Report Trigger: Send Report
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
[2019-11-29] MEDS ORDERED: ACETAMINOPHEN 325 MG TABLET ONE (06:15)
--- NOTE | 2019-11-29 09:41 | PDOC DISCHARGE SUMMARY ---
Impression - Admit/DC Date/PCP Admission Date/Primary Care Provider: 11/28/19 17:31 [facility] Discharge Date: 11/29/19 - Discharge Diagnosis (1) Anemia affecting fourth Is this a current diagnosis for this admission?: Yes (2) Hyperemesis complicating , antepartum Is this a current diagnosis for this admission?: Yes (3) Hypokalemia due to excessive gastrointestinal loss of potassium Is this a current diagnosis for this admission?: Yes (4) Intractable vomiting Is this a current diagnosis for this admission?: Yes - Assessment Summary: Pt has well known intractable voimting that intermittently causes hypokalemia. No vomiting since last night. Scopolamine patch helped patient in the past. Will give scopolamine patch now and will give rx at f/u on Wednesday. - Additional Information Resuscitation Status: Full Code Discharge Activity: Activity As Tolerated Referrals: [facility] [[facility]] - Home Medications: Ondansetron HCl [Zofran] 4 mg PO Q6HP PRN 09/06/19 Promethazine HCl [Phenergan 25 mg Supp.rect] 1 supp MN Q6HP PRN 09/06/19 Pnv No.95/Ferrous Fum/Folic AC [ Caplet] 1 tab PO DAILY 10/23/19 Omeprazole/Sodium Bicarbonate [Cvs Omeprazole-Bicarb 20-1,100] 1 each PO DAILY 11/08/19 Progesterone,Micronized [Prometrium 100 mg Capsule] 100 mg PO BID 11/08/19 History of Present Illiness History of Present Illness: TIMBO YOUNG is a 29 year old female with anemia and Hypokalemia due to intractable vomiting. 37wks . hypokalemia treated. Hct 24.7 and will get iron studies now and give injectifer - message sent to office to schedule for outpatient iron infusions prior to section. F/u in office of Hospital Course Hospital Course: 29 year old female with anemia and Hypokalemia due to intractable vomiting. 37wks . hypokalemia treated. Hct 24.7 and will get iron studies now and give injectifer - message sent to office to schedule for outpatient iron infusions prior to section. F/u in office of Wednesday Physical Exam - Physical Exam Vital Signs: Intake & Output 11/28/19 11/29/19 11/30/19 06:59 06:59 06:59 Intake Total 100 Balance 100 Weight 54.7 kg General appearance: PRESENT: no acute distress, well-developed, well-nourished Head exam: PRESENT: atraumatic, normocephalic Respiratory exam: PRESENT: clear to auscultation dion, symmetrical, unlabored Cardiovascular exam: PRESENT: RRR. ABSENT: diastolic murmur, rubs, systolic murmur Pulses: PRESENT: normal dorsalis pedis pul, +2 pedal pulses bilateral GI/Abdominal exam: PRESENT: normal bowel sounds, soft. ABSENT: distended, guarding, mass, organolmegaly, rebound, tenderness Rectal exam: PRESENT: deferred Extremities exam: PRESENT: full ROM. ABSENT: calf tenderness, clubbing, pedal edema Neurological exam: PRESENT: alert, awake, oriented to person, oriented to place, oriented to time, oriented to situation, CN II-XII grossly intact. ABSENT: motor sensory deficit Skin exam: PRESENT: dry, intact, warm. ABSENT: cyanosis, rash Results Laboratory Results: WBC 5.2 10^3/uL (4.0-10.5) 11/28/19 15:58 RBC 3.07 10^6/uL (3.72-5.28) L 11/28/19 15:58 Hgb 8.7 g/dL (12.0-15.5) L 11/28/19 15:58 Hct 24.7 % (36.0-47.0) L 11/28/19 15:58 MCV 81 fl (80-97) 11/28/19 15:58 MCH 28.4 pg (27.0-33.4) 11/28/19 15:58 MCHC 35.2 g/dL (32.0-36.0) 11/28/19 15:58 RDW 13.2 % (11.5-14.0) 11/28/19 15:58 Plt Count 209 10^3/uL (150-450) 11/28/19 15:58 Lymph % (Auto) 30.6 % (13-45) 11/28/19 15:58 [place] % (Auto) 4.8 % (3-13) 11/28/19 15:58 Eos % (Auto) 0.7 % (0-6) 11/28/19 15:58 Baso % (Auto) 0.6 % (0-2) 11/28/19 15:58 Absolute Neuts (auto) 3.3 10^3/uL (1.7-8.2) 11/28/19 15:58 Absolute Lymphs (auto) 1.6 10^3/uL (0.5-4.7) 11/28/19 15:58 Absolute Monos (auto) 0.2 10^3/uL (0.1-1.4) 11/28/19 15:58 Absolute Eos (auto) 0.0 10^3/uL (0.0-0.6) 11/28/19 15:58 Absolute Basos (auto) 0.0 10^3/uL (0.0-0.2) 11/28/19 15:58 Seg Neutrophils % 63.3 % (42-78) 11/28/19 15:58 Sodium 134.3 mmol/L (137-145) L 11/28/19 15:58 Potassium 4.0 mmol/L (3.6-5.0) 11/29/19 07:03 Chloride 106 mmol/L (98-107) 11/28/19 15:58 Carbon Dioxide 24 mmol/L (22-30) 11/28/19 15:58 Anion Gap 4 (5-19) L 11/28/19 15:58 BUN 8 mg/dL (7-20) 11/28/19 15:58 Creatinine 0.65 mg/dL (0.52-1.25) 11/28/19 15:58 Est GFR ( Amer) > 60 (>60) 11/28/19 15:58 Est GFR (MDRD) Non-Af > 60 (>60) 11/28/19 15:58 Glucose 80 mg/dL (75-110) 11/28/19 15:58 Uric Acid 6.4 mg/dL (2.5-6.2) H 11/28/19 15:58 Calcium 7.8 mg/dL (8.4-10.2) L 11/28/19 15:58 Total Bilirubin 0.3 mg/dL (0.2-1.3) 11/28/19 15:58 Direct Bilirubin 0.0 mg/dL (0.0-0.4) 11/28/19 15:58 Neonat Total Bilirubin Not Reportable 11/28/19 15:58 Neonat Direct Bilirubin Not Reportable 11/28/19 15:58 Neonat Indirect Bili Not Reportable 11/28/19 15:58 AST 25 U/L (14-36) 11/28/19 15:58 ALT 13 U/L (<35) 11/28/19 15:58 Alkaline Phosphatase 179 U/L (38-126) H 11/28/19 15:58 Lactate Dehydrogenase 196 U/L (120-246) 11/28/19 15:58 Total Protein 5.5 g/dL (6.3-8.2) L 11/28/19 15:58 Albumin 2.7 g/dL (3.5-5.0) L 11/28/19 15:58 Urine Color NABOR 11/28/19 16:53 Urine Appearance SLIGHTLY-CLOUDY 11/28/19 16:53 Urine pH 6.0 (5.0-9.0) 11/28/19 16:53 Ur Specific [place] 1.032 11/28/19 16:53 Urine Protein 30 mg/dL (NEGATIVE) H 11/28/19 16:53 Urine Glucose (UA) NEGATIVE mg/dL (NEGATIVE) 11/28/19 16:53 Urine Ketones NEGATIVE mg/dL (NEGATIVE) 11/28/19 16:53 Urine Blood NEGATIVE (NEGATIVE) 11/28/19 16:53 Urine Nitrite NEGATIVE (NEGATIVE) 11/28/19 16:53 Urine Bilirubin SMALL (NEGATIVE) H 11/28/19 16:53 Urine Urobilinogen 2.0 mg/dL (<2.0) H 11/28/19 16:53 Ur Leukocyte Esterase TRACE (NEGATIVE) H 11/28/19 16:53 Urine WBC (Auto) 0 /HPF 11/28/19 16:53 Urine RBC (Auto) 0 /HPF 11/28/19 16:53 Urine Bacteria (Auto) TRACE /HPF 11/28/19 16:53 Squamous Epi Cells Auto 4 /HPF 11/28/19 16:53 Urine Mucus (Auto) MANY /LPF 11/28/19 16:53 U Luana Prot/Creat Ratio CALCULATION NOT DONE mg/mg 11/28/19 16:53 Urine Creatinine 297.2 mg/dL (16-327) 11/28/19 16:53 Urine Total Protein < 5.0 mg/dL (<12) 11/28/19 16:53 Urine Ascorbic Acid NEGATIVE (NEGATIVE) 11/28/19 16:53 Urine Opiates Screen NEGATIVE 11/28/19 16:53 Urine Methadone Screen NEGATIVE 11/28/19 16:53 Ur Barbiturates Screen UNCONFIRMED POSITIVE 11/28/19 16:53 Ur Phencyclidine Scrn NEGATIVE 11/28/19 16:53 Ur Amphetamines Screen NEGATIVE 11/28/19 16:53 U Benzodiazepines Scrn NEGATIVE 11/28/19 16:53 Urine Cocaine Screen NEGATIVE 11/28/19 16:53 U Marijuana (THC) Screen NEGATIVE 11/28/19 16:53 Plan Health Concerns: Iron infusions as outpatient. Stroke Is this a Stroke Patient?: No Acute Heart Failure - Is this a Heart Failure Patient?: No
[2019-11-29] MEDS ORDERED: FERRIC CARBOXYMALTOSE INJ 750 MG/15 ML VIAL IV SCH (10:00)
[2019-11-29] MEDS ORDERED: SCOPOLAMINE HYDROBROMIDE 1.5 MG PATCH.TD72 TD SCH (10:00)
[2019-11-29 10:31] LABS: ABSOLUTE RETICS # 0.058 10^6/uL (0.028-0.122); RETICULOCYTE COUNT (AUTO) 1.87 % (0.66-2.85)
[2019-11-29 10:34] LABS: IRON(TIBC) 24.8 ug/dL (37-170)
[2019-11-29] MEDS ORDERED: FERRIC CARBOXYMALTOSE 750 MG in NORMAL SALINE 250 ML IV ONE (11:00)
[2019-11-29 11:09] LABS: FERRITIN 6.63 ng/mL (6.2-137.0)
== END 2019-11-29 11:31 | disposition home or self-care (01) ==
LOC: LC 15:05 → LR 17:31
PROVIDERS: ADMIT Obstetrics & Gynecology Gynecology; ATTEND Obstetrics & Gynecology Gynecology
DX: O99.013 Anemia complicating pregnancy, third trimester (principal); D64.9 Anemia, unspecified; O21.1 Hyperemesis gravidarum with metabolic disturbance; O26.893 Other specified pregnancy related conditions, third trimester; R51 Headache; Z3A.37 37 weeks gestation of pregnancy
CPT/HCPCS: 59025; 36415 ×2; 82607; 82728; 82746; 83540; 83550; 83615; 84132; 84156; 84550; 82570; 85025; 85045; 80053; 81001; 80307; 84466; 82239; G0378 ×2; G0379; J3480; J7050; J1439

== ENCOUNTER 2019-12-05 10:32 | Outpatient (CLI) | payer OTHER ==
[2019-12-05] MEDS ORDERED: RINGERS SOLUTION,LACTATED 1,000 ML IV ONE (11:02)
[2019-12-05 11:33] LABS: APPEARANCE,URINE SLIGHTLY-CLOUDY; BILIRUBIN,URINE NEGATIVE (NEGATIVE); COLOR,URINE AMBER; GLUCOSE, URINE NEGATIVE (NEGATIVE); KETONES,URINE NEGATIVE (NEGATIVE); LEUKOCYTE ESTERASE,URINE NEGATIVE (NEGATIVE); NITRITE,URINE NEGATIVE (NEGATIVE); PROTEIN,URINE 100 mg/dL (NEGATIVE); URINE SPECIFIC GRAVITY 1.027
[2019-12-05 12:02] LABS: URINE AMPHETAMINES SCREEN NEGATIVE; URINE BENZODIAZEPINES SCREEN NEGATIVE; URINE COCAINE SCREEN NEGATIVE; URINE MARIJUANA (THC) SCREEN NEGATIVE; URINE METHADONE SCREEN NEGATIVE; URINE PHENCYCLIDINE SCREEN NEGATIVE
[2019-12-05 12:24] LABS: URINE BARBITURATES SCREEN UNCONFIRMED POSITIVE
[2019-12-05 12:52] LABS: URINE PROTEIN 8.1 mg/dL (<12)
--- NOTE | 2019-12-05 13:37 | Non Stress Test Report ---
Non Stress Test Datetime Report Generated by CPN: 12/05/2019 13:37 DEMOGRAPHIC EGA NST: 38.0 EGA NST: 37.1 INDICATION Indication for Study (NST) Other: labor Indication for Study (NST) Other: iup 37.1, hypokalemia MONITORING Monitor Explained: Monitor Explained; Test Explained; Patient Verbalized Understanding Monitor Explained: Monitor Explained; Test Explained; Patient Verbalized Understanding Time on Monitor: 12/05/2019 10:43 Time on Monitor: 11/29/2019 11:04 Time off Monitor: 12/05/2019 13:22 Time off Monitor: 11/29/2019 11:24 NST Duration: 159 NST Duration: 20 NST INTERVENTIONS NST Interventions: PO Hydration NST Interventions: None Physician Notified NST: Maria A Hennessy CNM Physician Notified NST: Dr. Gutiérrez on unit, reviewed fht BABY A: [id number] BABY A Movement : Present Movement : Present Contraction Frequency : 4-5 Contraction Frequency : irregular FHR Baseline : 130 FHR Baseline : 130 Accelerations : 15X15 Accelerations : 15X15 Decelerations : None Decelerations : None Variability : Moderate 6-25bpm Variability : Moderate 6-25bpm NST Review: Meets Criteria for Reactive NST NST Review: Meets Criteria for Reactive NST NST Review and Verified By : Rashid Carpenter RN NST Review and Verified By : ANÍBAL Mojica NST Results: Reactive NST Results: Reactive NST REPORT Report Trigger: Send Report
== END 2019-12-05 13:30 | disposition home or self-care (01) ==
LOC: LC 10:32
PROVIDERS: ATTEND Obstetrics & Gynecology
DX: O36.8330 Maternal care for abnormalities of the fetal heart rate or rhythm, third trimester, not applicable or unspecified (principal); Z3A.38 38 weeks gestation of pregnancy; O47.1 False labor at or after 37 completed weeks of gestation; E87.6 Hypokalemia
CPT/HCPCS: 80307; 81005; 82570; 84156

== ENCOUNTER 2019-12-06 11:54 | Outpatient (CLI) | payer OTHER ==
[~2019-12-06 11:54] MED LIST: FERRIC CARBOXYMALTOSE 750 MG in NORMAL SALINE 250 ML IV PRN; NORMAL SALINE 250 ML IV PRN
[2019-12-06 12:00] VITALS: BP 121/76
== END 2019-12-06 13:05 | disposition home or self-care (01) ==
LOC: II 11:54 → 5TH 11:56 → II 13:05
PROVIDERS: ATTEND Student in an Organized Health Care Education/Training Program
DX: O99.019 Anemia complicating pregnancy, unspecified trimester (principal)
CPT/HCPCS: 96365; J7050; J1439

== ENCOUNTER 2019-12-13 04:58 | Inpatient (IN) | payer OTHER ==
[2019-12-06 09:26] LABS: ABSOLUTE LYMPHOCYTES (AUTO) 1.9 10^3/uL (0.5-4.7); ABSOLUTE MONOCYTES (AUTO) 0.3 10^3/uL (0.1-1.4); ABSOLUTE NEUT (AUTO) 3.8 10^3/uL (1.7-8.2); BASOPHILS % (AUTO) 0.7 % (0-2); EOSINOPHILS % (AUTO) 0.6 % (0-6); HEMATOCRIT 28.2 % (36.0-47.0); HEMOGLOBIN 9.6 g/dL (12.0-15.5); LYMPHOCYTES % (AUTO) 30.8 % (13-45); MEAN CORPUSCULAR HEMOGLOBIN 27.8 pg (27.0-33.4); MEAN CORPUSCULAR HGB CONC 33.9 g/dL (32.0-36.0); MEAN CORPUSCULAR VOLUME 82 fl (80-97); MONOCYTES % (AUTO) 5.7 % (3-13); PLATELET COUNT 176 10^3/uL (150-450); RED BLOOD COUNT 3.43 10^6/uL (3.72-5.28); RED CELL DISTRIBUTION WIDTH 13.4 % (11.5-14.0); SEGMENTED NEUTROPHILS % (AUTO) 62.2 % (42-78); TOTAL CELLS COUNTED % (AUTO) 100 %; WHITE BLOOD COUNT 6.1 10^3/uL (4.0-10.5)
[2019-12-06 09:45] LABS: APPEARANCE,URINE SLIGHTLY-CLOUDY; BILIRUBIN,URINE NEGATIVE (NEGATIVE); COLOR,URINE YELLOW; GLUCOSE, URINE NEGATIVE (NEGATIVE); KETONES,URINE NEGATIVE (NEGATIVE); LEUKOCYTE ESTERASE,URINE NEGATIVE (NEGATIVE); NITRITE,URINE NEGATIVE (NEGATIVE); PROTEIN,URINE 100 mg/dL (NEGATIVE); URINE SPECIFIC GRAVITY 1.026; UROBILINOGEN,URINE NEGATIVE mg/dL (<2.0)
[2019-12-06 09:52] LABS: URINE AMPHETAMINES SCREEN NEGATIVE; URINE BENZODIAZEPINES SCREEN NEGATIVE; URINE COCAINE SCREEN NEGATIVE; URINE MARIJUANA (THC) SCREEN NEGATIVE; URINE METHADONE SCREEN NEGATIVE; URINE PHENCYCLIDINE SCREEN NEGATIVE
[2019-12-06 11:33] LABS: URINE BARBITURATES SCREEN UNCONFIRMED POSITIVE
[2019-12-13] MEDS ORDERED: RINGERS SOLUTION,LACTATED 1,000 ML IV ONE (05:00)
[2019-12-13] MEDS ORDERED: RINGERS SOLUTION,LACTATED 1,000 ML IV PRN ×2 (05:21→09:21)
[2019-12-13] MEDS ORDERED: CEFAZOLIN 2 GM/D5W RTU 2 GM/50 ML RTUPB IV PRN (05:21)
[2019-12-13] MEDS ORDERED: OXYTOCIN 10 UNIT/ML VIAL ONE (07:37)
[2019-12-13] MEDS ORDERED: OXYTOCIN/0.9 % SODIUM CHLORIDE 30 UNIT/500 ML RTUINJ ONE (07:37)
[2019-12-13] MEDS ORDERED: MIDAZOLAM 2 MG/2 ML INJ ONE (07:37)
[2019-12-13] MEDS ORDERED: FENTANYL CITRATE INJ/PF 100 MCG/2 ML AMPUL ONE (07:37)
[2019-12-13] MEDS ORDERED: PHENYLEPHRINE HCL INJ/PF 10 MG/1 ML SDV ONE (07:37)
[2019-12-13] MEDS ORDERED: EPHEDRINE SULFATE INJ 50 MG/1 ML AMPULE ONE (07:37)
[2019-12-13] MEDS ORDERED: KETOROLAC TROMETHAMINE INJ/PF 30 MG/1 ML SDV ONE (07:37)
[2019-12-13] MEDS ORDERED: ONDANSETRON HCL INJ/PF 4 MG/2 ML SDV ONE (07:38)
[2019-12-13] MEDS ORDERED: ACETAMINOPHEN 1,000 MG/100 ML RTUPB IV ONE (07:38)
[2019-12-13] MEDS ORDERED: PROMETHAZINE HCL INJ 25 MG/1 ML VIAL IV PRN ×3 (08:21→09:21)
[2019-12-13] MEDS ORDERED: OXYCODONE-ACETAMINOPHEN 5-325 MG TABLET PO PRN ×3 (08:21→09:21)
[2019-12-13] MEDS ORDERED: ONDANSETRON HCL INJ/PF 4 MG/2 ML SDV IV PRN (08:21)
[2019-12-13] MEDS ORDERED: MEPERIDINE HCL/PF INJ 25 MG/1 ML DISP.SYRIN IV PRN (08:21)
[2019-12-13] MEDS ORDERED: DIPHENHYDRAMINE HCL 50 MG/ML VIAL IV PRN (08:21)
[2019-12-13] MEDS ORDERED: FENTANYL CITRATE INJ/PF 100 MCG/2 ML AMPUL IV PRN ×3 (08:21)
[2019-12-13] MEDS ORDERED: OXYTOCIN/0.9 % SODIUM CHLORIDE 30 UNIT/500 ML RTUINJ IV PRN (09:21)
[2019-12-13] MEDS ORDERED: ACETAMINOPHEN 325 MG TABLET PO PRN (09:21)
[2019-12-13] MEDS ORDERED: DIPH/PERTUSS(ACELL)/TETANUS VAC/PF 0.5 ML SYR (>=10YO) IM PRN (09:21)
[2019-12-13] MEDS ORDERED: MEASLES,MUMPS&RUBELLA VACC/PF 0.5 ML VIAL SUBCUT PRN (09:21)
[2019-12-13] MEDS ORDERED: ACETAMINOPHEN 1,000 MG/100 ML RTUPB IV PRN (09:21)
--- NOTE | 2019-12-13 09:51 | Operative Report ---
Operative Report DATE OF SURGERY: 12/13/19 PREOPERATIVE DIAGNOSIS: Intrauterine at 39+ weeks. Hyperemesis of pr egnancy. Severe anemia complicating . History of prior section. Undesired fertility. Desired risk reduction for ovarian cancer POSTOPERATIVE DIAGNOSIS: Same as above OPERATION: Repeat section and bilateral salpingectomies SURGEON: RON CASH ANESTHESIA: Spinal TISSUE REMOVED OR ALTERED: Bilateral fallopian tubes, placenta COMPLICATIONS: None ESTIMATED BLOOD LOSS: 800 cc INTRAOPERATIVE FINDINGS: Normal appearing bilateral fallopian tubes and ovaries. Female infant, vigorous at delivery. Amniotic fluid clear, large amount PROCEDURE: IV fluids: per anesthesia record Urinary output: 200 cc Position: To recovery room in stable condition Description of procedure: The patient was taken to the operating room and spinal anesthesia was administered and found to be adequate. She was then placed on the OR table in the supine position with a slight leftward tilt. Patient was prepped and draped in usual sterile fashion. Ancef 2 gms was given IV prior to the procedure for infection prophylaxis. Timeout was taken. A Pfannenstiel skin incision was then made approximately 3 cm above the pubic symphysis and carried down to level the rectus fascia. The rectus fascia was then nicked in the midline with a scalpel and the fascial incision was extended laterally with use of curved Hernandez scissors. The rectus fascia was then grasped with 2 Kocker clamps elevated and the underlying rectus muscle was dissected off both bluntly and sharply. Scar tissue noted between fascia and rectus muscles. Any bleeding controlled with cautery. The rectus muscles were then split in the midline and the peritoneum was entered. The peritoneal incision was then extended by manually stretching the peritoneum. The bladder blade was positioned. Bladder flap created and bladder blade replaced. The bladder was noted to be out of harm's way. A scalpel was then used in the lower uterine for the hysterotomy, slowly until amniotomy was obtained a large amount of fluid was noted. The uterine incision was then manually stretched. The was noted to be in vertex postion but engaged in the pelvis. The head was delivered with minmal difficulty. The shoulders and the rest of the body followed immediately. The cord was cut clamped and the was handed off to the nurse awaiting. was crying prior to hand off. The placenta was manually delivered. Using a lap gauze the uterus was cleared of all clots and debris. The uterus was then exteriorized and a bladder blade was repositioned. The uterine incision was then closed with 0 Chromic suture in a running locked fashion. A second layer of the same suture was used in a running locked imbricated fashion. The uterine incision was inspected and a few areas were cauterized with bovie and hemostasis obtained. Lap gauze used to apply lower uterine segment for pressure and retractor was removed. The posterior aspect of the uterus was then inspected and anatomy was seen as above. The right fallopian tube was identified and traced to the fimbriated end. A celine x 2 was used to elevate the fallopian tube and the bovie was used to make a window in the mesosalpinx in an area free of vasculature. A free tie was used x2 to ligate the tube near the uterus and good blanching was noted. There were two vessels that were clamped x2, suture ligated x2 and metzenbaum scissors were used to remove the tube and this will be sent to the lab as right fallopian tube. The bovie was used to cauterize end of tube. Good hemostasis was noted. The left fallopian tube was identified and traced to the fimbriated end. A cleine x 2 was used to elevate the fallopian tube and the bovie was used to make a window in the mesosalpinx in an area free of vasculature. A free tie was used x2 to ligate the tube near the uterus and good blanching was noted. There were two vessels that were clamped x2, suture ligated x2 and metzenbaum scissors were used to remove the tube and this will be sent to the lab as left fallopian tube. The bovie was used to cauterize end of tube. Good hemostasis was noted. The uterus was returned to its normal anatomic position within the abdominal cavity. Warm saline irrigation was used to clear all clots and debris from the abdomen. The tubes were re-inspected bilaterally and good hemostasis seen with ties still on each tube. The uterine incision was inspected once more and noted to remain hemostatic, but a small amount of oozing noted at bladdder flap area. Bovie and interceed used to obtain hemostasis. The bladder blade was removed and the peritoneum was closed with 2-0 chromic in a running fashion. The rectus muscles were then reapproximated and any bleeding was controled with the bovie. The rectus fascia was closed with a #1 PDS in a running fashion. The subcutaneous tissue was then inspected and any bleeding was controlled with Bovie electrocautery. The subcutaneous tissue was then closed with 2-0 Plain Gut suture in a running fashion. The skin was then closed with 3-0 Monocryl in a running subcuticular fashion. The skin incision was then clean dried and Dermabond was applied over the skin incision. All instrument sponge and needle counts were correct x3 for the procedure the patient tolerated the procedure well. She will proceed to recovery room in stable condition. Fundus firm and one centimeter below the umbilicus.
--- NOTE | 2019-12-13 10:33 | PDOC DELIVERY SUMMARY ---
Delivery Summary - Maternal Hx : V Hx # Term Pregnancies: 2 Hx # Pregnancies: 1 Hx Total # of Abortions (Sponateous & Elective): 1 PHAM: 12/19/19 Fluid Description: Clear, large amount - Delivery Labor: Not In Labor Presentation: Vertex Heart Rate Monitoring: Done Pre-Operatively : Scheduled Placenta: Within Normal Limits Nuchal Cord: No Estimated Blood Loss: 800 cc - Medications Type of Anesthesia:: Spinal - Delivery Personnel RN: STEFANIA HALL MD: RON CASH
[2019-12-13] MEDS ORDERED: HYDROMORPHONE HCL INJ/PF 2 MG/ML AMPULE ONE (10:45)
[2019-12-13] MEDS: HYDROMORPHONE HCL INJ/PF 2 MG/ML AMPULE IV PRN ×2 (10:46→16:15)
[2019-12-13] MEDS: DOCUSATE SODIUM 100 MG CAPSULE PO SCH ×2 (12:09→17:31)
[2019-12-13] MEDS: PRENATAL VITAMIN W DHA CAPSULE PO SCH (12:09)
[2019-12-13] MEDS: KETOROLAC TROMETHAMINE INJ/PF 30 MG/1 ML SDV IV SCH ×2 (14:11→22:52)
[2019-12-13] MEDS: OXYCODONE-ACETAMINOPHEN 5-325 MG TABLET PO PRN (14:15)
[2019-12-13] MEDS ORDERED: IRON SUCROSE COMPLEX INJ/PF 100 MG/5 ML SDV IV ONE (16:30)
[2019-12-13 17:03] LABS: HEMATOCRIT 25.3 % (36.0-47.0); HEMOGLOBIN 8.6 g/dL (12.0-15.5); MEAN CORPUSCULAR HEMOGLOBIN 27.7 pg (27.0-33.4); MEAN CORPUSCULAR VOLUME 82 fl (80-97); PLATELET COUNT 129 10^3/uL (150-450); RED CELL DISTRIBUTION WIDTH 13.8 % (11.5-14.0); WHITE BLOOD COUNT 9.1 10^3/uL (4.0-10.5)
[2019-12-13] MEDS ORDERED: DIPHENHYDRAMINE HCL 50 MG/ML VIAL ONE (17:20)
[2019-12-13 17:24] LABS: ALBUMIN 2.2 g/dL (3.5-5.0); ALKALINE PHOSPHATASE 170 U/L (38-126); ASPARTATE AMINO TRANSFERASE 30 U/L (14-36); BILIRUBIN,TOTAL 0.2 mg/dL (0.2-1.3); BLOOD UREA NITROGEN 6 mg/dL (7-20); CALCIUM 7.8 mg/dL (8.4-10.2); GLUCOSE 97 mg/dL (75-110); POTASSIUM 3.2 mmol/L (3.6-5.0); TOTAL PROTEIN 4.7 g/dL (6.3-8.2); URIC ACID 5.6 mg/dL (2.5-6.2)
[2019-12-13 17:29] LABS: CARBON DIOXIDE 26 mmol/L (22-30); CHLORIDE 105 mmol/L (98-107)
[2019-12-13 17:39] LABS: UR PRO/CREAT RATIO RESULT 0.2 mg/mg (0.0-0.2); URINE CREATININE 141.4 mg/dL (16-327); URINE PROTEIN 30.5 mg/dL (<12)
[2019-12-13 17:43] LABS: ANION GAP 1 (5-19)
[2019-12-13] MEDS ORDERED: DIPHENHYDRAMINE HCL 50 MG/ML VIAL IV ONE (17:45)
[2019-12-14] MEDS: OXYCODONE-ACETAMINOPHEN 5-325 MG TABLET PO PRN ×3 (03:08→16:32)
[2019-12-14] MEDS: IBUPROFEN 800 MG TABLET PO SCH ×3 (05:32→21:21)
[2019-12-14 07:53] LABS: HEMATOCRIT 24.7 % (36.0-47.0); HEMOGLOBIN 8.5 g/dL (12.0-15.5); MEAN CORPUSCULAR HEMOGLOBIN 27.9 pg (27.0-33.4); MEAN CORPUSCULAR HGB CONC 34.3 g/dL (32.0-36.0); MEAN CORPUSCULAR VOLUME 81 fl (80-97); PLATELET COUNT 133 10^3/uL (150-450); RED BLOOD COUNT 3.03 10^6/uL (3.72-5.28); RED CELL DISTRIBUTION WIDTH 13.9 % (11.5-14.0); WHITE BLOOD COUNT 7.8 10^3/uL (4.0-10.5)
[2019-12-14] MEDS: DOCUSATE SODIUM 100 MG CAPSULE PO SCH ×2 (09:11→18:31)
[2019-12-14] MEDS: PRENATAL VITAMIN W DHA CAPSULE PO SCH (09:11)
[2019-12-14] MEDS: POTASSI CL 20 MEQ/NS 1L 1000 ML IV PRN ×2 (09:17→18:31)
--- NOTE | 2019-12-14 09:30 | PDOC PROGRESS REPORT ---
Subjective-OB Progress Note for:: 12/14/19 Subjective: Doing well, sitting on side of bed eating, just medicated for pain, voiding, walking, scant lochia Physical Exam (OB) Vital Signs: Temp Pulse Resp BP Pulse Ox 97.8 F 60 18 148/93 H 100 12/14/19 07:54 12/14/19 07:54 12/14/19 07:54 12/14/19 07:54 12/14/19 07:54 Intake & Output 12/13/19 12/14/19 12/15/19 06:59 06:59 06:59 Intake Total 1740 Output Total 1470 Balance 270 Weight 53.524 kg - PIH/Pre-Eclampsia Clonus: Negative Headache: Absent Epigastric Pain: No Visual Changes: No - Dressing Removed: No - pressure dressing Incision: Dressing - Lochia Lochia Amount: Small 10-25 ml Lochia Color: Rubra/Red - Abdomen Description: Tender, Soft Hernia Present: No Fundal Description: Firm, Midline Fundal Height: u/u - u/2 Objective-Diagnostic Laboratory: 12/14/19 07:11 12/13/19 16:48 12/13/19 12/13/19 12/14/19 16:48 16:48 07:11 WBC 9.1 7.8 RBC 3.10 L 3.03 L Hgb 8.6 L 8.5 L Hct 25.3 L 24.7 L MCV 82 81 MCH 27.7 27.9 MCHC 34.0 34.3 RDW 13.8 13.9 Plt Count 129 L 133 L Sodium 131.6 L Potassium 3.2 L Chloride 105 Carbon Dioxide 26 Anion Gap 1 L BUN 6 L Creatinine 0.66 Est GFR ( Amer) > 60 Glucose 97 Uric Acid 5.6 Calcium 7.8 L Total Bilirubin 0.2 AST 30 Alkaline Phosphatase 170 H Total Protein 4.7 L Albumin 2.2 L Assessment and Plan(PN) - Assessment and Plan (1) Anemia Qualifiers: Anemia type: iron deficiency Is this a current diagnosis for this admission?: Yes (2) Depression Qualifiers: Depression Type: unspecified Qualified Code(s): F32.9 - Major depressive disorder, single episode, unspecified Is this a current diagnosis for this admission?: Yes (3) Status post repeat low transverse section Is this a current diagnosis for this admission?: Yes - Time Spent with Patient Time with patient: Less than 15 minutes Medications reviewed and adjusted accordingly: Yes - Disposition Anticipated Discharge: Home Within: within 24 hours
[2019-12-14] MEDS ORDERED: HYDRALAZINE HCL INJ/PF 20 MG/1 ML SDV IV ONE (13:30)
[2019-12-14] MEDS ORDERED: NIFEDIPINE 30 MG TAB.ER.24 PO SCH (14:00)
[2019-12-14] MEDS: SIMETHICONE 80 MG TAB.CHEW PO PRN ×2 (15:17→21:24)
[2019-12-15] MEDS ORDERED: FUROSEMIDE 20 MG TABLET PO ONE (04:30)
[2019-12-15] MEDS: SIMETHICONE 80 MG TAB.CHEW PO PRN (04:35)
[2019-12-15] MEDS: IBUPROFEN 800 MG TABLET PO SCH ×2 (05:25→13:57)
[2019-12-15 08:00] LABS: ALBUMIN 2.9 g/dL (3.5-5.0); ALKALINE PHOSPHATASE 193 U/L (38-126); ASPARTATE AMINO TRANSFERASE 46 U/L (14-36); BILIRUBIN,TOTAL 0.2 mg/dL (0.2-1.3); BLOOD UREA NITROGEN 9 mg/dL (7-20); CALCIUM 8.8 mg/dL (8.4-10.2); GLUCOSE 80 mg/dL (75-110); POTASSIUM 4.8 mmol/L (3.6-5.0)
[2019-12-15 08:05] LABS: ANION GAP 6 (5-19); CARBON DIOXIDE 21 mmol/L (22-30); CHLORIDE 108 mmol/L (98-107)
[2019-12-15] MEDS: DOCUSATE SODIUM 100 MG CAPSULE PO SCH (09:10)
[2019-12-15] MEDS: PRENATAL VITAMIN W DHA CAPSULE PO SCH (09:10)
[2019-12-15] MEDS: OXYCODONE-ACETAMINOPHEN 5-325 MG TABLET PO PRN (09:11)
[2019-12-15] MEDS ORDERED: NIFEDIPINE 30 MG TAB.ER.24 PO SCH (10:00)
--- NOTE | 2019-12-15 10:36 | PDOC DISCHARGE SUMMARY ---
Impression - Admit/DC Date/PCP Admission Date/Primary Care Provider: 12/13/19 04:58 [facility] Discharge Date: 12/15/19 - Discharge Diagnosis (1) Anemia Is this a current diagnosis for this admission?: Yes (2) Status post repeat low transverse section Is this a current diagnosis for this admission?: Yes (3) Anemia affecting fourth Is this a current diagnosis for this admission?: Yes - Additional Information Resuscitation Status: Full Code Discharge Diet: Regular Discharge Activity: Balance Activity w/Rest, No Lifting Over 10 Pounds, No Lifting/Push/Pulling, Pelvic Rest, Slowly Increase Activity, No tub bath [facility]: [facility] [[facility]] - Prescriptions: Oxycodone HCl/Acetaminophen [Percocet 5-325 mg Tablet] 1 tab PO Q4HP PRN #30 tablet PRN Reason: For Pain Scale 3-5 Ibuprofen [Motrin 800 mg Tablet] 800 mg PO Q8HP PRN #60 tablet PRN Reason: Nifedipine [Procardia XL 30 mg Tablet] 30 mg PO Q12 #30 tab.er.24 Home Medications: Pnv No.95/Ferrous Fum/Folic AC [ Caplet] 1 tab PO DAILY 10/23/19 Ibuprofen [Motrin 800 mg Tablet] 800 mg PO Q8HP PRN #60 tablet 12/15/19 Nifedipine [Procardia XL 30 mg Tablet] 30 mg PO Q12 #30 tab.er.24 12/15/19 Oxycodone HCl/Acetaminophen [Percocet 5-325 mg Tablet] 1 tab PO Q4HP PRN #30 tablet 12/15/19 HPI Reason(s) for Admission: Ceasarean Section-Repeat Procedures: None Intrapartum Procedure(s): : Low Cervical, Transverse Results Laboratory Results: WBC 7.8 10^3/uL (4.0-10.5) 12/14/19 07:11 RBC 3.03 10^6/uL (3.72-5.28) L 12/14/19 07:11 Hgb 8.5 g/dL (12.0-15.5) L 12/14/19 07:11 Hct 24.7 % (36.0-47.0) L 12/14/19 07:11 MCV 81 fl (80-97) 12/14/19 07:11 MCH 27.9 pg (27.0-33.4) 12/14/19 07:11 MCHC 34.3 g/dL (32.0-36.0) 12/14/19 07:11 RDW 13.9 % (11.5-14.0) 12/14/19 07:11 Plt Count 133 10^3/uL (150-450) L 12/14/19 07:11 Lymph % (Auto) 30.8 % (13-45) 12/06/19 08:37 [place] % (Auto) 5.7 % (3-13) 12/06/19 08:37 Eos % (Auto) 0.6 % (0-6) 12/06/19 08:37 Baso % (Auto) 0.7 % (0-2) 12/06/19 08:37 Absolute Neuts (auto) 3.8 10^3/uL (1.7-8.2) 12/06/19 08:37 Absolute Lymphs (auto) 1.9 10^3/uL (0.5-4.7) 12/06/19 08:37 Absolute Monos (auto) 0.3 10^3/uL (0.1-1.4) 12/06/19 08:37 Absolute Eos (auto) 0.0 10^3/uL (0.0-0.6) 12/06/19 08:37 Absolute Basos (auto) 0.0 10^3/uL (0.0-0.2) 12/06/19 08:37 Seg Neutrophils % 62.2 % (42-78) 12/06/19 08:37 Sodium 134.5 mmol/L (137-145) L 12/15/19 07:00 Potassium 4.8 mmol/L (3.6-5.0) 12/15/19 07:00 Chloride 108 mmol/L (98-107) H 12/15/19 07:00 Carbon Dioxide 21 mmol/L (22-30) L 12/15/19 07:00 Anion Gap 6 (5-19) 12/15/19 07:00 BUN 9 mg/dL (7-20) 12/15/19 07:00 Creatinine 0.58 mg/dL (0.52-1.25) 12/15/19 07:00 Est GFR ( Amer) > 60 (>60) 12/15/19 07:00 Est GFR (MDRD) Non-Af > 60 (>60) 12/15/19 07:00 Glucose 80 mg/dL (75-110) 12/15/19 07:00 Uric Acid 5.6 mg/dL (2.5-6.2) 12/13/19 16:48 Calcium 8.8 mg/dL (8.4-10.2) 12/15/19 07:00 Total Bilirubin 0.2 mg/dL (0.2-1.3) 12/15/19 07:00 Direct Bilirubin 0.0 mg/dL (0.0-0.4) 12/15/19 07:00 Neonat Total Bilirubin Not Reportable 12/15/19 07:00 Neonat Direct Bilirubin Not Reportable 12/15/19 07:00 Neonat Indirect Bili Not Reportable 12/15/19 07:00 AST 46 U/L (14-36) H 12/15/19 07:00 ALT 16 U/L (<35) 12/15/19 07:00 Alkaline Phosphatase 193 U/L (38-126) H 12/15/19 07:00 Lactate Dehydrogenase 241 U/L (120-246) 12/13/19 16:48 Total Protein 6.0 g/dL (6.3-8.2) L 12/15/19 07:00 Albumin 2.9 g/dL (3.5-5.0) L 12/15/19 07:00 Urine Color YELLOW 12/06/19 08:45 Urine Appearance SLIGHTLY-CLOUDY 12/06/19 08:45 Urine pH 9.0 (5.0-9.0) 12/06/19 08:45 Ur Specific [place] 1.026 12/06/19 08:45 Urine Protein 100 mg/dL (NEGATIVE) H 12/06/19 08:45 Urine Glucose (UA) NEGATIVE mg/dL (NEGATIVE) 12/06/19 08:45 Urine Ketones NEGATIVE mg/dL (NEGATIVE) 12/06/19 08:45 Urine Blood NEGATIVE (NEGATIVE) 12/06/19 08:45 Urine Nitrite NEGATIVE (NEGATIVE) 12/06/19 08:45 Urine Bilirubin NEGATIVE (NEGATIVE) 12/06/19 08:45 Urine Urobilinogen NEGATIVE mg/dL (<2.0) 12/06/19 08:45 Ur Leukocyte Esterase NEGATIVE (NEGATIVE) 12/06/19 08:45 Urine WBC (Auto) 1 /HPF 12/06/19 08:45 Urine RBC (Auto) 0 /HPF 12/06/19 08:45 U Hyaline Cast (Auto) 1 /LPF 12/06/19 08:45 Urine Bacteria (Auto) TRACE /HPF 12/06/19 08:45 Squamous Epi Cells Auto 12 /HPF 12/06/19 08:45 Urine Mucus (Auto) OCC /LPF 12/06/19 08:45 U [place] Prot/Creat Ratio Cancelled 12/13/19 16:45 Urine Creatinine 141.4 mg/dL (16-327) 12/13/19 16:45 Urine Creatinine Cancelled 12/13/19 16:45 Protein/Creatinin Ratio 0.2 mg/mg (0.0-0.2) 12/13/19 16:45 Protein/Creatinin Ratio Cancelled 12/13/19 16:45 Urine Total Protein 30.5 mg/dL (<12) H 12/13/19 16:45 Urine Total Protein Cancelled 12/13/19 16:45 Urine Ascorbic Acid NEGATIVE (NEGATIVE) 12/06/19 08:45 Urine Opiates Screen NEGATIVE 12/06/19 08:45 Urine Methadone Screen NEGATIVE 12/06/19 08:45 Ur Barbiturates Screen UNCONFIRMED POSITIVE 12/06/19 08:45 Ur Phencyclidine Scrn NEGATIVE 12/06/19 08:45 Ur Amphetamines Screen NEGATIVE 12/06/19 08:45 U Benzodiazepines Scrn NEGATIVE 12/06/19 08:45 Urine Cocaine Screen NEGATIVE 12/06/19 08:45 U Marijuana (THC) Screen NEGATIVE 12/06/19 08:45 COVID-19 Source NASOPHARYNGEAL 12/06/19 08:35 COVID-19 (NAUN) NOT DETECTED 12/06/19 08:35 Blood Type O POSITIVE 12/12/19 12:52 Antibody Screen NEGATIVE 12/12/19 12:52 Plan Plan of Treatment: f/u at [facility] as scheduled Time Spent: Less than 30 Minutes
[2019-12-15 11:25] VITALS: BP 148/99
== END 2019-12-15 14:20 | disposition home or self-care (01) | DRG 785 ==
LOC: 2S 04:58 → MERGE 07:45
PROVIDERS: ADMIT Obstetrics & Gynecology; ATTEND Obstetrics & Gynecology
PROC: 10D00Z1 Extraction of Products of Conception, Low, Open Approach (ICD-10-PCS; principal; 2019-12-13)
PROC: 0UT70ZZ Resection of Bilateral Fallopian Tubes, Open Approach (ICD-10-PCS; 2019-12-13)
DX: O34.211 Maternal care for low transverse scar from previous cesarean delivery (principal); Z30.2 Encounter for sterilization; O99.02 Anemia complicating childbirth; O36.5930 Maternal care for other known or suspected poor fetal growth, third trimester, not applicable or unspecified; K21.9 Gastro-esophageal reflux disease without esophagitis; O99.62 Diseases of the digestive system complicating childbirth; O21.2 Late vomiting of pregnancy; D50.9 Iron deficiency anemia, unspecified; Z37.0 Single live birth; Z98.1 Arthrodesis status; Z79.899 Other long term (current) drug therapy; Z3A.39 39 weeks gestation of pregnancy; Z03.818 Encounter for observation for suspected exposure to other biological agents ruled out
CPT/HCPCS: 1961; 36415; 59025; 64450; 76942; 80053; 80307; 81001; 82570; 83615; 84156; 84550; 85025; 85027; 86850; 86900; 86901; 87635; 88302; 94760; 94799; C1758; C9803; J0131; J0360; J0690; J1170; J1200; J1756; J1885; J2250; J2370; J2405; J2590; J3010; J3480; J3490; J7120